=== PATIENT | female | born 1955 | race Caucasian/White ===

== ENCOUNTER → 2019-07-04 | Outpatient (CLI) | payer BC ==
--- NOTE | 2019-07-05 08:51 | US ---
EXAMINATION TYPE: US pelvis complete transvag DATE OF EXAM: 07/04/2019 COMPARISON: NONE CLINICAL HISTORY: R14.0 ABD DISTENTION. TECHNIQUE: Transvaginal (TV) and Transabdominal (TA) . Transabdominal sonographic images of the pel vis were acquired. Transvaginal sonographic images were medically necessary to better assess the fol lowing anatomy: ovaries Date of LMP: postmenopausal, no HRT EXAM MEASUREMENTS: Uterus: 7.2 x 2.3 x 4.6 cm Endometrial Stripe: 0.5 cm Right Ovary: 1.6 x 1.2 x 1.5 cm Left Ovary: 1.8 x 1.7 x 1.2 cm 1. Uterus: Anteverted wnl 2. Endometrium: wnl 3. Right Ovary: wnl 4. Left Ovary: wnl 5. Bilateral Adnexa: wnl 6. Posterior cul-de-sac: no free fluid IMPRESSION: Endometrial thickness is upper limits of normal but within normal limits for a premenopau cheri female.
== END | disposition home or self-care (01) ==
LOC: RADUSWWP 15:36
PROVIDERS: ATTEND Internal Medicine
DX: R14.0 Abdominal distension (gaseous) (principal)
CPT/HCPCS: 76830; 76856

== ENCOUNTER 2023-11-21 01:40 | Emergency (ER) | payer MEDICARE ==
--- NOTE | 2023-11-21 02:55 | ED ---
Arrhythmia/Palpitations HPI - General Chief Complaint: Arrhythmia/Palpitations Stated Complaint: Heart Palpitations Time Seen by Provider: 11/21/23 01:50 Source: patient Mode of arrival: ambulatory Limitations: no limitations - History of Present Illness Initial Comments: 68-year-old female with past medical history significant for hypertension presenting to the ED with a chief complaint of palpitations. Patient reports earlier tonight was just sitting on the couch watching TV when she felt a "fluttering" sensation in the middle of her chest lasting for 5 minutes. There was no associated chest pain, shortness of breath, dizziness, lightheadedness. After 5 minutes she reported symptoms spontaneously resolved. At this time patient has no current complaints. Currently denies chest pain, shortness of breath, palpitations, abdominal pain, changes in bowel or bladder habits, fever or chills. - Related Data Home Medications Medication Instructions Recorded Confirmed Aspirin 81 mg PO DAILY 10/28/14 10/28/14 Cetirizine HCl [Zyrtec] 5 mg PO DAILY 10/28/14 10/29/14 Cranberry Conc/C/Bacill Coag 1 each PO BID 10/28/14 10/29/14 [Cranberry Tablet] Dha-Eta 0.75 mg PO DAILY 10/28/14 10/29/14 Immune Biotect 1 tab PO DAILY 10/28/14 10/29/14 L.acidoph,Paracasei, B.lactis 1 each PO DAILY 10/28/14 10/29/14 [Probiotic] Multivitamins, Thera [Multivitamin] 1 tab PO DAILY 10/28/14 10/28/14 Olopatadine HCl [Pataday] 2.5 ml BOTH EYES DAILY 10/28/14 10/29/14 Similasan 1 drop BOTH EYES DAILY 10/28/14 10/29/14 Allergies Allergy/AdvReac Type Severity Reaction Status Date / Time No Known Allergies Allergy Verified 10/28/14 09:18 Review of Systems ROS Statement: Those systems with pertinent positive or pertinent negative responses have been documented in the HPI. ROS Other: All systems not noted in ROS Statement are negative. Past Medical History Past Medical History: Hypertension Additional Past Medical History / Comment(s): hx frequent UTI's, seasonal allergies, palpitations, hemorrhoids History of Any Multi-Drug Resistant Organisms: None Reported Past Surgical History: No Surgical Hx Reported Past Anesthesia/Blood Transfusion Reactions: No Reported Reaction Past Psychological History: No Psychological Hx Reported Smoking Status: Never smoker Past Alcohol Use History: Rare Past Drug Use History: None Reported - Past Family History Mother Family Medical History: No Reported History General Exam Limitations: no limitations General appearance: alert, in no apparent distress Eye exam: Present: normal appearance Neck exam: Present: normal inspection Respiratory exam: Present: normal lung sounds bilaterally Cardiovascular Exam: Present: regular rate, normal rhythm (No murmurs rubs or gallops.) GI/Abdominal exam: Present: soft, normal bowel sounds. Absent: distended, tenderness, guarding, rebound, rigid Neurological exam: Present: alert, oriented X3 Skin exam: Present: warm, dry Course Vital Signs 11/21/23 11/21/23 11/21/23 01:43 02:10 03:15 Temperature 97.6 F Pulse Rate 95 90 88 Respiratory 18 18 18 Rate Blood Pressure 194/88 168/91 179/97 O2 Sat by Pulse 98 98 96 Oximetry 11/21/23 04:24 Temperature Pulse Rate 82 Respiratory 16 Rate Blood Pressure 157/73 O2 Sat by Pulse 97 Oximetry Medical Decision Making - Medical Decision Making Was pt. sent in by a medical professional or institution (, PA, DIRECTOR EQUIPMENT, urgent care, hospital, or senior care...) When possible be specific @ -No Did you speak to anyone other than the patient for history (EMS, parent, family, police, friend...)? What history was obtained from this source @ -No Did you review nursing and triage notes (agree or disagree)? Why? @ -I reviewed and agree with nursing and triage notes Were old charts reviewed (outside hosp., previous admission, EMS record, old EKG, old radiological studies, urgent care reports/EKG's, senior care records)? Report findings @ -No old charts were reviewed Differential Diagnosis (chest pain, altered mental status, abdominal pain women, abdominal pain men, vaginal bleeding, weakness, fever, dyspnea, syncope, headache, dizziness, GI bleed, back pain, seizure, CVA, palpatations, mental health, musculoskeletal)? @ -Differential Palpitations Ventricular arrhythmias, atrial arrhythmias, myocardial infarction, anemia, thyrotoxicosis, electrolyte imbalance, hypokalemia, pulmonary embolism, pulmonary disease, drugs, alcohol, anxiety, stress.... This is not meant to be an all-inclusive list. EKG interpreted by me (3pts min.). @ -EKG interpreted me showing a sinus rhythm at [address] or T wave changes. CT 146, QRS 98, QT/QTc 373/421. X-rays interpreted by me (1pt min.). @ -Chest x-ray interpreted me which revealed no evidence of acute finding. CT interpreted by me (1pt min.). @ -None done U/S interpreted by me (1pt. min.). @ -None done What testing was considered but not performed or refused? (CT, X-rays, U/S, labs)? Why? @ -None What meds were considered but not given or refused? Why? @ -None Did you discuss the management of the patient with other professionals ( professionals i.e. , PA, DIRECTOR EQUIPMENT, lab, RT, psych nurse, social service worker, tailercpa, teacher, artillery officer, keycase assembler)? Give summary @ -No Was smoking cessation discussed for >3mins.? @ -No Was critical care preformed (if so, how long)? @ -No Were there social determinants of health that impacted care today? How? (Homelessness, low income, unemployed, alcoholism, drug addiction, transportation, low edu. Level, literacy, decrease access to med. care, nursing home, rehab)? @ -No Was there de-escalation of care discussed even if they declined (Discuss DNR or withdrawal of care, Hospice)? DNR status @ -No What co-morbidities impacted this encounter? (DM, HTN, Smoking, COPD, CAD, Cancer, CVA, ARF, Chemo, Hep., AIDS, mental health diagnosis, sleep apnea, morbid obesity)? @ -None Was patient admitted / discharged? Hospital course, mention meds given and route, prescriptions, significant lab abnormalities, going to OR and other pertinent info. @ -Discharge 68-year-old female presenting to the ED with episode where she felt her heart fluttering lasting for about 5 minutes with no associated symptoms. Laboratory studies and imaging studies reviewed. Labs and imaging are unremarkable. EKG showed a sinus rhythm without acute ST or T wave changes. Patient discharged home in stable condition with instructions to closely follow-up with her PCP. Discussed return precautions with patient who verbalized agreement. Undiagnosed new problem with uncertain prognosis? @ -No Drug Therapy requiring intensive monitoring for toxicity (Heparin, Nitro, Insulin, Cardizem)? @ -No Were any procedures done? @ -No Diagnosis/symptom? @ -Palpitations Acute, or Chronic, or Acute on Chronic? @ -Acute Uncomplicated (without systemic symptoms) or Complicated (systemic symptoms)? @ -Uncomplicated Side effects of treatment? @ -No Exacerbation, Progression, or Severe Exacerbation? @ -No Poses a threat to life or bodily function? How? (Chest pain, USA, PA, pneumonia, PE, COPD, DKA, ARF, appy, cholecystitis, CVA, Diverticulitis, Homicidal, Suicidal, threat to staff... and all critical care pts) @ -No - Lab Data Result diagrams: 11/21/23 02:05 11/21/23 02:05 Lab Results 11/21/23 11/21/23 11/21/23 Range/Units 02:05 02:05 02:05 WBC 11.0 H (3.8-10.6) k/uL RBC 4.48 (3.80-5.40) m/uL Hgb 14.2 (11.4-16.0) gm/dL Hct 42.5 (34.0-46.0) % MCV 94.9 (80.0-100.0) fL MCH 31.7 (25.0-35.0) pg MCHC 33.4 (31.0-37.0) g/dL RDW 12.9 (11.5-15.5) % Plt Count 254 (150-450) k/uL MPV 7.8 Neutrophils % 44 % Lymphocytes % 45 % Monocytes % 4 % Eosinophils % 4 % Basophils % 1 % Neutrophils # 4.9 (1.3-7.7) k/uL Lymphocytes # 4.9 H (1.0-4.8) k/uL Monocytes # 0.5 (0-1.0) k/uL Eosinophils # 0.4 (0-0.7) k/uL Basophils # 0.1 (0-0.2) k/uL PT 10.1 (10.0-12.5) sec INR 0.9 (<1.2) APTT 25.0 (22.0-30.0) sec Sodium 139 (137-145) mmol/L Potassium 3.8 (3.5-5.1) mmol/L Chloride 109 H (98-107) mmol/L Carbon Dioxide 21 L (22-30) mmol/L Anion Gap 9 mmol/L BUN 12 (7-17) mg/dL Creatinine 0.56 (0.52-1.04) mg/dL Est GFR (CKD-EPI)AfAm >90 (>60 ml/min/1.73 sqM) Est GFR (CKD-EPI)NonAf >90 (>60 ml/min/1.73 sqM) Glucose 98 (74-99) mg/dL Calcium 9.2 (8.4-10.2) mg/dL Magnesium 2.1 (1.6-2.3) mg/dL Total Bilirubin 0.4 (0.2-1.3) mg/dL AST 30 (14-36) U/L ALT 23 (4-34) U/L Alkaline Phosphatase 95 (38-126) U/L Troponin I (0.000-0.034) ng/mL Total Protein 7.1 (6.3-8.2) g/dL Albumin 4.3 (3.5-5.0) g/dL 11/21/23 Range/Units 02:05 WBC (3.8-10.6) k/uL RBC (3.80-5.40) m/uL Hgb (11.4-16.0) gm/dL Hct (34.0-46.0) % MCV (80.0-100.0) fL MCH (25.0-35.0) pg MCHC (31.0-37.0) g/dL RDW (11.5-15.5) % Plt Count (150-450) k/uL MPV Neutrophils % % Lymphocytes % % Monocytes % % Eosinophils % % Basophils % % Neutrophils # (1.3-7.7) k/uL Lymphocytes # (1.0-4.8) k/uL Monocytes # (0-1.0) k/uL Eosinophils # (0-0.7) k/uL Basophils # (0-0.2) k/uL PT (10.0-12.5) sec INR (<1.2) APTT (22.0-30.0) sec Sodium (137-145) mmol/L Potassium (3.5-5.1) mmol/L Chloride (98-107) mmol/L Carbon Dioxide (22-30) mmol/L Anion Gap mmol/L BUN (7-17) mg/dL Creatinine (0.52-1.04) mg/dL Est GFR (CKD-EPI)AfAm (>60 ml/min/1.73 sqM) Est GFR (CKD-EPI)NonAf (>60 ml/min/1.73 sqM) Glucose (74-99) mg/dL Calcium (8.4-10.2) mg/dL Magnesium (1.6-2.3) mg/dL Total Bilirubin (0.2-1.3) mg/dL AST (14-36) U/L ALT (4-34) U/L Alkaline Phosphatase (38-126) U/L Troponin I <0.012 (0.000-0.034) ng/mL Total Protein (6.3-8.2) g/dL Albumin (3.5-5.0) g/dL Disposition Clinical Impression: Palpitations Disposition: HOME SELF-CARE Condition: Good Instructions (If sedation given, give patient instructions): Heart Palpitations (ED) Additional Instructions: Please return to the Emergency Department if symptoms worsen or any other concerns. Please follow-up with your primary care provider. Is patient prescribed a controlled substance at d/c from ED?: No Referrals: Chloé Dalton MD [Primary Care Provider] - 1-2 days Time of Disposition: 04:35
[2023-11-21 03:36] LABS: Basophils # (A) 0.1 k/uL (0-0.2); Basophils % (A) 1 %; Eosinophils # (A) 0.4 k/uL (0-0.7); Eosinophils % (A) 4 %; HCT 42.5 % (34.0-46.0); HGB 14.2 gm/dL (11.4-16.0); Lymphocytes # (A) 4.9 k/uL (1.0-4.8); Lymphocytes % (A) 45 %; MCH 31.7 pg (25.0-35.0); MCHC 33.4 g/dL (31.0-37.0); MCV 94.9 fL (80.0-100.0); Mean Platelet Volume 7.8; Monocytes # (A) 0.5 k/uL (0-1.0); Monocytes % (A) 4 %; Neutrophils # (A) 4.9 k/uL (1.3-7.7); Neutrophils % (A) 44 %; Platelet Count 254 k/uL (150-450); RBC 4.48 m/uL (3.80-5.40); RDW 12.9 % (11.5-15.5)
[2023-11-21 03:49] LABS: ALT 23 U/L (4-34); AST 30 U/L (14-36); African American GFR (CKD) >90 (>60 ml/min/1.73 sqM); Albumin 4.3 g/dL (3.5-5.0); Alkaline Phosphatase 95 U/L (38-126); Anion Gap 9 mmol/L; Blood Urea Nitrogen 12 mg/dL (7-17); Calcium 9.2 mg/dL (8.4-10.2); Carbon Dioxide 21 mmol/L (22-30); Chloride 109 mmol/L (98-107); Glucose 98 mg/dL (74-99); INR 0.9 (<1.2); Magnesium 2.1 mg/dL (1.6-2.3); Non-African American GFR(CKD) >90 (>60 ml/min/1.73 sqM); Potassium 3.8 mmol/L (3.5-5.1); Prothrombin Time 10.1 sec (10.0-12.5); Sodium 139 mmol/L (137-145); Total Bilirubin 0.4 mg/dL (0.2-1.3); Total Protein 7.1 g/dL (6.3-8.2)
[2023-11-21 04:25] VITALS: RESP 16
--- NOTE | 2023-11-21 04:33 | XR ---
EXAM: XR Chest, 2 Views CLINICAL HISTORY: ITS.REASON XR Reason: Chest Pain TECHNIQUE: Frontal and lateral views of the chest. COMPARISON: No relevant prior studies available. FINDINGS: Lungs: Unremarkable. No consolidation. Pleural space: Unremarkable. No pneumothorax. Heart: Unremarkable. No cardiomegaly. Mediastinum: Unremarkable. Normal mediastinal contour. Bones/joints: Unremarkable. No acute fracture. IMPRESSION: No consolidation.
[2023-11-21 05:08] VITALS: BP 169/85; PULSE 80; TEMP 97.7
== END 2023-11-21 05:06 | disposition home or self-care (01) ==
LOC: EC 01:40
DX: R00.2 Palpitations (principal)
CPT/HCPCS: 36415; 71046; 80053; 83735; 84484; 85025; 85610; 85730; 93005; 99285

== ENCOUNTER → 2023-12-20 | Outpatient (CLI) | payer MEDICARE ==
[2023-12-20 15:30] VITALS: BP 138/94; PULSE 97; RESP 16; TEMP 98.1
--- NOTE | 2023-12-20 15:56 | P.SLEEP ---
History of Present Illness DATE: 12/20/2023 CONSULTATION/NEW PATIENT EVALUATION HISTORY OF PRESENT ILLNESS/SLEEP-WAKE EVALUATION: 68-year-old lady had been e valuated in the sleep center for possible obstructive sleep apnea hypopnea syndrome. SLEEP SCHEDULE: Usually sleep schedule from 1112 midnight until 68 AM. FALLING ASLEEP: No significant problems with falling asleep. DURING SLEEP: Patient snores, has witnessed episodes of stop breathing during the sleep and wakes up from sleep with dry mouth and palpitations no history of hypnogogical hallucinations, sleep paralysis, or cataplexy. DURING THE DAY/WAKE STATE: Patient has problems with memory, falling asleep during the day. [place] sleepiness scale is 9. Patient may take nap at 1 PM. PAST MEDICAL HISTORY: Hypertension, anxiety, hyperlipidemia. PAST SURGICAL HISTORY: Basal cell carcinoma have been removed. MEDICATIONS: Please see below. SOCIAL HISTORY: Please see below. FAMILY HISTORY: Asthma, cancer, sleep apnea, anemia. REVIEW OF SYSTEMS: Snoring, sleepiness during the day. No fevers. No double vision. No recent chest pain. No shortness of breath. No abdominal pain. No bleeding episodes. No blood in urine. No seizure episodes. PHYSICAL EXAMINATION: GENERAL: A pleasant patient without any distress. VITAL SIGNS: Please see below, weight 199.4 pounds, BMI 34.3. HEENT: PERRLA, EOMI. Evaluation of oropharynx showed tongue protrudes midline, low position of soft palate Mallampati 4. NECK: Supple. No JVD. Thyroid is not palpable. 14.5 inches in circumference. LUNGS: Clear to percussion and to auscultation. Good air exchange. No wheezing or rhonchi. HEART: S1, S2 regular. No murmurs, gallops or rubs. ABDOMEN: Soft and nontender. Bowel sounds are present. No organomegaly appreciated. EXTREMITIES: No clubbing or cyanosis. HYDROGRAPHIC SURVEYOR: Awake, alert, and oriented x3. Cranial nerves 2 to 7 intact. There is no fasciculation or atrophy noted. No focal deficits observed. ASSESSMENT: 1. Snoring, witnessed episodes of stop breathing during the sleep, extremely low position of soft palate Mallampati 4, episodes of sleepiness during the day. Obstructive sleep apnea hypopnea syndrome. 2. Obesity, BMI 34.3. 3. Hypertension. 4. Anxiety. 5 hyperlipidemia. 6 . Status post surgical treatment for basal cell carcinoma. PLAN: 1. Polysomnography for evaluation of patient's breathing during sleep. 2. Following plan after reading sleep study. 3. Preferable position during sleep on the side. 4. No driving if patient feels any sleepiness. Patient is aware of civil and criminal liability for unsafe driving. 5. Sleep hygiene with regular sleep time for at least 7.5-8 hours. 6. Watching and losing weight. Thank you very much for referring this patient for consultation. Sincerely, Jerry Norris MD, PhD, FAASM. Diplomat of [place] [employer], Sleep Medicine Board by [employer] Commercial Maintenance Technician of [facility] [place] cc: Chloé Dalton MD Past Medical History Past Medical History: Hypertension Additional Past Medical History / Comment(s): hx frequent UTI's, seasonal allergies, palpitations, hemorrhoids History of Any Multi-Drug Resistant Organisms: None Reported Past Surgical History: No Surgical Hx Reported Past Anesthesia/Blood Transfusion Reactions: No Reported Reaction Past Psychological History: Anxiety Smoking Status: Never smoker Past Alcohol Use History: Rare Past Drug Use History: None Reported - Past Family History Mother Family Medical History: No Reported History Medications and Allergies Home Medications Medication Instructions Recorded Confirmed Type Aspirin 81 mg PO DAILY 10/28/14 12/20/23 History Cranberry Conc/C/Bacill Coag 1 each PO BID 10/28/14 12/20/23 History [Cranberry Tablet] Multivitamins, Thera [Multivitamin] 1 tab PO DAILY 10/28/14 12/20/23 History Similasan 1 drop BOTH EYES DAILY 10/28/14 10/29/14 History Loratadine [Claritin] 12/20/23 History Magnesium 250 mg PO 12/20/23 12/20/23 History Rosuvastatin [Crestor] 10 mg PO 12/20/23 History buPROPion HCL [buPROPion HCL Xl] 12/20/23 History lisinopriL [Zestril] 10 mg PO DAILY 12/20/23 12/20/23 History Allergies Allergy/AdvReac Type Severity Reaction Status Date / Time No Known Allergies Allergy Verified 10/28/14 09:18 Physical Exam Vitals: Vital Signs Temp Pulse Resp BP Pulse Ox 12/20/23 15:30 98.1 F 97 16 138/94 97 Intake and Output 12/20/23 12/20/23 12/20/23 06:59 14:59 22:59 Other: Weight 90.265 kg Sleep Note - Sleep Data ESS Total: 9 - Sleep Note Sleep Note: Temperature: 98.1 F Pulse Rate: 97 Respiratory Rate: 16 Blood Pressure: 138/94 SpO2: 97 Height: 5 ft 4 in Weight: 90.265 kg BMI: Neck Circumference: 14.5
== END ==
LOC: 3 N SLEEP 14:56
PROVIDERS: ATTEND Internal Medicine
DX: G47.33 Obstructive sleep apnea (adult) (pediatric) (principal); E66.9 Obesity, unspecified; I10 Essential (primary) hypertension; F41.9 Anxiety disorder, unspecified; E78.5 Hyperlipidemia, unspecified; Z98.890 Other specified postprocedural states; Z85.828 Personal history of other malignant neoplasm of skin; Z68.34 Body mass index [BMI] 34.0-34.9, adult; Z79.899 Other long term (current) drug therapy; Z87.891 Personal history of nicotine dependence
CPT/HCPCS: 99211

== ENCOUNTER 2024-01-28 19:41 | Outpatient (CLI) | payer MEDICARE ==
--- NOTE | 2024-02-01 10:45 | P.PCN ---
Description of Procedure: POLYSOMNOGRAPHY REPORT PROCEDURE(S)/DATE(S): Polysomnography 01/28/2024 CLINICAL: Patient has been seen in the sleep center for evaluation of obstructive sleep apnea-hypopnea syndrome. Please see my consultation. Sleep study has been done for evaluation of patient breathing during the sleep. PROCEDURE: The standard montage for clinical polysomnography included the electroencephalogram, the electrooculogram, the mentalis surface electromyography and Lead II cardiography. The respiratory battery consisted of measurements of nasal/buccal air flow, pressure transducer measurements from nose, thoracic and/or abdominal effort and intercostal surface electromyography. Video monitoring has been done to check for any parasomnia events. Nocturnal oxyhemoglobin saturations were obtained by finger oximetry. Step-faulkner titration with positive airway pressure was utilized to control the respiratory events, if necessary. RESULTS: During the diagnostic sleep study sleep efficiency was extremely low only 44.5%. Latency to sleep onset was significantly prolonged to 127.0 min. Sleep architecture showed stage NI was increased to 14.0%, Delta sleep was absent 0%, REM sleep was 25.1%. Respiratory channel showed 1 obstructive apneas, 0 mixed apneas, 3 central apneas, 149 hypopneas with lowest oxygen level 59%. Total apnea hypopnea index was 53.7. Heart rate was in the range between 66 and 78, average 71 by computer calculation. EMG showed 1.4 periodic limb movements per hour with 0.4 micro-arousals per hour. IMPRESSIONS: 1. Severe obstructive sleep apnea hypopnea syndrome with extremely severe oxygen desaturation. 2. No significant periodic limb movements have been documented. 3. Long sleep latency and low sleep efficiency during the sleep test which may indicate insomnia versus first night adaptation response. Please see other impressions from consultation PLAN: 1. The patient will have PAP titration for correction of respiratory abnormalities during the sleep. 2. Losing weight program. 3. Sleep hygiene with regular time in bed for at least 7-1/2 hours. 4. No driving if feeling sleepiness. Thank you very much for allowing me to participate in the management of your patient. Sincerely, Jerry Norris MD, PhD, FAASM. Diplomat of [place] [employer] [employer], Sleep Medicine Board by [place] [employer] Commercial Finance Manager of [facility] [place] cc: Chloé Dalton MD
== END 2024-01-29 06:08 | disposition home or self-care (01) ==
LOC: 3 N SLEEP 19:41
PROVIDERS: ATTEND Internal Medicine
CPT/HCPCS: 95810

== ENCOUNTER 2024-02-07 19:38 | Outpatient (CLI) | payer MEDICARE ==
--- NOTE | 2024-02-08 12:03 | P.PCN ---
Description of Procedure: CLINICAL: Titration with positive air pressure has been done for correction of respiratory abnormalities during sleep. DESCRIPTION OF PROCEDURE: The standard montage for clinical polysomnography included the electroencephalogram, the electrocardiogram, the mentalis surface electromyography and Lead II cardiography. The respiratory battery consisted of measurements of nasal /buccal air flow, pressure transducer measurements from the nose, thoracic and /or abdominal effort and intercostal surface electromyography. Video monitoring has been done to check for any parasomnia events. Nocturnal oxyhemoglobin saturations were obtained by finger oximetry. Step-faulkner titration with positive airway pressure was utilized to control respiratory events. Raw data of sleep recording has been reviewed and is adequate. RESULTS: Sleep efficiency was extremely short 32.6%. Total sleep time 123.0 minutes Latency to sleep onset was prolonged to 55.5 minutes.]. Sleep architecture showed stage N1 was increased to 17.9%, Delta sleep was absent 0%, REM sleep was borderline 20.7%. Heart rate was minimum 67 BPM, maximum 78 BPM, average 71 BPM. EMG showed 0 periodic limb movements per hour with 0 micriarousals per hour. PAP titration have been done with CPAP up to the pressure 15 cm H2O. Patient had problems with CPAP, switched to BPAP. BPAP titrated up to 21/17 cm H2O. The best results were at the pressure 21/17 cm H2O. Apnea hypopnea index reduced to 4.9, but patient was at that pressure for short period of time. IMPRESSION: 1. Severe obstructive sleep apnea hypopnea syndrome improved on BiPAP treatment. 2. No significant periodic limb movements have been documented. 3. Very low sleep efficiency during the test. Please see other impressions from consultation. PLAN: 1. The patient will have treatment with positive air pressure equipment with the level of pressure maximal inspiratory pressure 21, minimal expiratory pressure 6 cm H2O and should use it every night for the whole night. 2. Watching and losing weight. 3. Sleep hygiene with regular time in bed for at least 8 hours. 4. No driving if feeling any sleepiness. 5. I will see the patient for follow up visit to explain the results of the test, recommendations, check compliance with treatment and make any necessary adjustment related to mask fitting, pressure and humidification. Thank you very much for allowing me to participate in the management of your patient. Sincerely, Jerry Norris MD, PhD, FAASM Diplomat of [employer] [employer] Sleep Medicine Board of [place] [employer] Sanitation Officer of [facility] [place] cc: Chloé Dalton MD
== END 2024-02-08 06:00 | disposition home or self-care (01) ==
LOC: 3 N SLEEP 19:38
PROVIDERS: ATTEND Internal Medicine
CPT/HCPCS: 95811

== ENCOUNTER → 2024-04-12 | Outpatient (CLI) | payer MEDICARE ==
--- NOTE | 2024-04-12 08:25 | MM ---
Reason for Exam: Screening (asymptomatic). Patient History: Menarche at age 11. First Full-Term at age 31. Late child-bearing (after 30). Postmenopausal. Patient has history of breast feeding. Risk Values: Millicent 5 year model risk: 2.4%. NCI Lifetime model risk: 7.3%. Prior Study Comparison: No prior studies available for comparison. Tissue Density: There are scattered areas of fibroglandular density. Findings: Analyzed By CAD. Pleomorphic cluster of microcalcifications upper outer right breast 13 cm from the nipple measuring 5.4 x 2.3 cm. These are likely malignant. Additional views however are recommended prior to recommended stereotactic core biopsy. No additional clusters of microcalcifications are present. There is a small irregular nodule identified at the approximate 1:00 position left breast which measures 5 mm in size 10 cm from the nipple. Additional views bilaterally recommended. Overall Assessment: Incomplete: need additional imaging evaluation, BI-RAD 0 Management: Diagnostic Mammogram of both breasts. . Patient should continue monthly self-breast exams. A clinical breast exam by your physician is recommended on an annual basis. This exam should not preclude additional follow-up of suspicious palpable abnormalities. Note on Millicent scores and lifetime risk: 1. A Millicent score greater than 3% is considered moderate risk. If this is the case, consider specialist referral to assess eligibility for a risk reducing agent. 2. If overall lifetime risk for the development of breast cancer is 20% or higher, the patient may qualify for future screening with alternating mammogram and breast MRI. [facility], , 04/12/2024 8:22 AM. Electronically signed and approved by: Olu Chavez M.D. Radiologis
== END | disposition home or self-care (01) ==
LOC: RADMAMWWP 07:03
PROVIDERS: ATTEND Family Medicine
DX: Z12.31 Encounter for screening mammogram for malignant neoplasm of breast (principal); R92.323 Mammographic fibroglandular density, bilateral breasts; Z78.0 Asymptomatic menopausal state
CPT/HCPCS: 77063; 77067

== ENCOUNTER → 2024-04-24 | Outpatient (CLI) | payer MEDICARE ==
--- NOTE | 2024-04-24 07:56 | MM ---
Reason for Exam: Additional evaluation requested from abnormal screening. Last screening mammogram was performed less than 1 month ago. Patient History: Menarche at age 11. First Full-Term at age 31. Late child-bearing (after 30). Postmenopausal. Patient has history of breast feeding. Risk Values: Millicent 5 year model risk: 2.4%. NCI Lifetime model risk: 7.3%. Prior Study Comparison: 04/12/2024 Bilateral MG 3D screening mammo w/cad, [facility]. Tissue Density: The breasts are heterogeneously dense, which may obscure small masses. Findings: Analyzed By CAD. A region of calcification at the 10:00 right breast spanning nearly 5.3 cm. Associated density for which ultrasound is recommended. On the left, there is persistence of a 5 mm nodule near the 12:00 position middle to posterior depth for which further ultrasound evaluation is recommended. Overall Assessment: Incomplete: need additional imaging evaluation, BI-RAD 0 Management: Diagnostic Breast Ultrasound of both breasts. [facility], , 04/24/2024 7:52 AM. Electronically signed and approved by: Abeba Clayton M.D. Radiologist
--- NOTE | 2024-04-24 08:45 | USB ---
Reason for Exam: Additional evaluation requested from abnormal screening. Patient History: Menarche at age 11. First Full-Term at age 31. Late child-bearing (after 30). Postmenopausal. Patient has history of breast feeding. Risk Values: Millicent 5 year model risk: 2.4%. NCI Lifetime model risk: 7.3%. Technique: Method: Targeted. Prior Study Comparison: 04/12/2024 Bilateral MG 3D screening mammo w/cad, [facility]. Findings: The whole breast of the right breast, the upper section of the breast of the left breast, the axilla of both breasts and the retroareolar of both breasts were scanned. Right: Complete breast ultrasound including scanning of 4 quadrants as well as the subareolar region and axilla. At the 10:00 position, 10 cm from the nipple, there is a poorly defined heterogeneous hypoechoic area measuring 1.2 x 1.7 x 1.4 cm. Some marginal vascularity is noted as well as posterior shadowing. This area is smaller than the region of 5.3 cm calcification on mammogram. There is a prominent but nonenlarged 2.3 x 0.9 x 1.1 cm lymph node in the right axilla. However, this shows uniform mild cortical thickening up to 2.7 mm. Tissue sampling recommended here as well. No other solid or cystic lesion. Left: Targeted ultrasound 12:00 left breast including scanning of the subareolar region and axilla. At the 12:00 position, 8 cm from the nipple, there is a suspicious vertically oriented isoechoic lesion measuring 3 x 4 x 4 mm with some posterior shadowing. Mammographic correlate. No axillary adenopathy. Overall Assessment: Highly suggestive of malignancy, BI-RAD 5 Management: Ultrasound Core Biopsy of both breasts. 2 sites on the right and one site on the left. Note that the region of calcifications on mammogram span a larger area in the visualized right breast lesion. Results were given to the patient verbally at the time of exam. [facility], , 04/24/2024 8:41 AM. Electronically signed and approved by: Abeba Clayton M.D. Radiologist
== END | disposition home or self-care (01) ==
LOC: RADMAMWWP 07:21
PROVIDERS: ATTEND Family Medicine
DX: R92.8 Other abnormal and inconclusive findings on diagnostic imaging of breast (principal); Z78.0 Asymptomatic menopausal state
CPT/HCPCS: 77066; 76642; G0279; 77062

== ENCOUNTER → 2024-04-25 | Day surgery (SDC) | payer MEDICARE ==
--- NOTE | 2024-05-07 08:39 | MM ---
Reason for Exam: Post Procedure Mammogram. Last screening mammogram was performed less than 1 month ago. Patient History: Menarche at age 11. First Full-Term at age 31. Late child-bearing (after 30). Postmenopausal. Patient has history of breast feeding. Risk Values: Millicent 5 year model risk: 2.4%. NCI Lifetime model risk: 7.3%. Prior Study Comparison: 04/12/2024 Bilateral MG 3D screening mammo w/cad, [facility]. 04/24/2024 Bilateral MG 3D work up w/cad [facility], [facility]. Tissue Density: Right: There are scattered areas of fibroglandular density. Tissue Density: Left: There are scattered areas of fibroglandular density. Pathology Description: Location: axilla. Marker Left Behind. Needle Type: Mammotome Cores: 4 Gauge: 13 Pathology Description: Location: 10 o'clock. Marker Left Behind. Needle Type: Mammotome Cores: 4 Gauge: 13 Pathology Description: Location: 12 o'clock. Marker Left Behind. Needle Type: Mammotome Cores: 5 Gauge: 13 The procedure of ultrasound guided core biopsy was explained to the patient. Benefits, alternatives, and risks were discussed. An informed consent was then obtained. The patient was placed in supine positioning for imaging and for the procedure. The overlying skin was prepped and draped in usual sterile fashion. Lidocaine buffered with bicarbonate was used as anesthetic into the skin and subcutaneous tissue up to area of concern in each breast. The right axillary lymph node was further anesthetized with lidocaine/epinephrine mixture. A.) LEFT BREAST TINY BUT SUSPICIOUS 12:00 LESION. Under ultrasound guidance, a 13-gauge vacuum-assisted mammotome Elite biopsy gun device was used to obtain 5 core samples. Following this, a HydroMark butterfly clip was left in lesion. B.) RIGHT BREAST 10:00 LESION, ASSOCIATED WITH CALCIFICATIONS ON MAMMOGRAM. Under ultrasound guidance, a 13-gauge vacuum-assisted mammotome Elite biopsy gun device was used to obtain 4 core samples. Following this, a wing clip was left in lesion. C.) EQUIVOCAL RIGHT AXILLARY LYMPH NODE, UNIFORMLY THICKENED CORTEX, POSSIBLY REACTIVE. Under ultrasound guidance, a 13-gauge vacuum-assisted mammotome Elite biopsy gun device was used to obtain 4 core samples. Following this, a HydroMark coil clip was left in lesion. The patient tolerated the procedure well without any immediate complication. The patient was kept in the radiology department for short stay after the procedure and then discharged home in stable condition. Postprocedure mammogram: The patient was transferred to mammography for physician ordered post procedure mammogram for clip placement verification. Post procedure mammogram demonstrates the butterfly and wing clips with appropriate placement. The right axillary coil clip is beyond the field of view. IMPRESSION: Successful, uncomplicated ultrasound guided core biopsy of: 1. BI-RADS 5, 10:00 right breast mass. Note the associated area of calcifications on mammogram. 2. Equivocal, possibly reactive right axillary lymph node. 3. Suspicious but small 12:00 left breast mass. Full pathology results to follow. [facility], , 04/25/2024 5:48 PM. Pathology Results: Result: Malignant, Invasive ductal carcinoma. Pathology and radiology were reviewed. Findings are concordant. A. LEFT BREAST, 12:00, NEEDLE CORE BIOPSY: Invasive moderately differentiated ductal carcinoma (Grade 2). See Surgical Pathology Cancer Case Summary. B. RIGHT BREAST, 10:00, NEEDLE CORE BIOPSY: Invasive moderately differentiated ductal carcinoma (Grade 2) and intermediate grade DCIS. See Surgical Pathology Cancer Case Summary. C. RIGHT AXILLA LYMPH NODE, NEEDLE CORE BIOPSY: Lymph node negative for metastasis. CK7 immunostain performed on block C1 is confirmatory (control appropriate). Overall Assessment: Known biopsy proven malignancy, BI-RAD 6 Assessment: MG diagnostic mammo RT wo CAD - Right: Post procedure mammogram for marker placement. MG diagnostic mammo LT wo CAD. - Left: Post procedure mammogram for marker placement. Management: Surgical Consultation of both breasts. Electronically signed and approved by: Abeba Clayton M.D. Radiologist
== END ==
LOC: RADUSWWP 12:43
PROVIDERS: ATTEND Surgery
DX: C50.812 Malignant neoplasm of overlapping sites of left female breast (principal); C50.411 Malignant neoplasm of upper-outer quadrant of right female breast; Z78.0 Asymptomatic menopausal state
CPT/HCPCS: 88305; 88342; 88341; 77065 ×2; 38505; 19083; 19084; A4648

== ENCOUNTER → 2024-05-01 | Outpatient (CLI) | payer MEDICARE ==
[2024-05-01 16:09] VITALS: BP 170/90; PULSE 100; RESP 16; TEMP 97.5
--- NOTE | 2024-05-01 17:51 | P.PROGSL ---
Subjective DATE: 05/01/2024 FOLLOW UP VISIT. Patient with obstructive sleep apnea hypopnea syndrome return to sleep center for follow-up visit. Recently patient had sleep study which documented obstructive sleep apnea hypopnea syndrome. Patient was initiated on PAP therapy and today is first visit after treatment was started. I explained to the patient results of sleep studies, patient has severe sleep apnea with apnea- hypopnea index 53.7. Patient was able to use PAP equipment every night for the whole night. The patient does not have significant problems with the mask, PAP pressure and humidification. [place] sleepiness scale is 6, which is normal. I checked information from PAP unit. BPAP unit pressure maximal inspiratory pressure 21, minimal expiratory pressure 6, average pressure 19.4/15.5 cm H2O. Usage is 100% and 90% for more then 4 hours, average 9 hours per night. Leak is 25 l/m, which is in acceptable range. Apnea Hypopnea Index is 6.8, which is minimally increased, significant improvement from original apnea hypopnea index 53.7. MEDICATIONS: Have been reviewed, please see below During physical exam: GENERAL: A pleasant patient without any distress. VITAL SIGNS: Please see below, weight 210 pounds. HEENT: PERRLA, EOMI.low position of soft palate, Mallapati 4 . NECK: Supple. No JVD. LUNGS: Clear to percussion and to auscultation. Good air exchange. No wheezing or rhonchi. HEART: S1, S2 regular. ABDOMEN: Soft and nontender.[] EXTREMITIES: No clubbing or cyanosis. [employer]: Awake, alert, and oriented x3. No focal deficit. Impressions: 1. Severe obstructive sleep apnea-hypopnea syndrome apnea hypopnea index 53.7. Patient demonstrated great compliance with treatment, benefiting from treatment. 2. Obesity. 3. Hypertension. 4. Anxiety. 5. Hyperlipidemia. 6. Status post surgical treatment for basal cell carcinoma. Plan: 1. Continue using PAP equipment every night for the whole night. 2. To change air filter at least 1-2 times per month. 3. PAP unit should stay lower then position of the head. 4. Advised patient to remove all remaining water from humidifier canister daily and make it dry after each usage. Refill canister with fresh distilled water before each usage. 5. Sleep hygiene with regular time in bed for at least 8 hours. 6. Precautions related to driving. No driving if feel any sleepiness. 7. I will maintain prescription for PAP supplies including mask, tube, filters. 8. Follow up visit in 8 months or earlier if patient has any problems. 9. Watching and losing weight. Thank you very much for allowing me to participate in the management of your patient. Jerry Norris MD, PhD, FAASM. Diplomat of [place] [employer], Sleep Medicine Board by [place] [employer] [facility] [place] Objective - Vital Signs Vital Signs: Vital Signs Temp 97.5 F L 05/01/24 16:07 Pulse 100 05/01/24 16:07 Resp 16 05/01/24 16:07 BP 170/90 05/01/24 16:07 Pulse Ox 98 05/01/24 16:07 FiO2 Intake & Output 04/30/24 05/01/24 05/01/24 18:59 06:59 18:59 Weight 95.254 kg Home Medications: Home Medications Medication Instructions Recorded Confirmed Type Cranberry Conc/C/Bacill Coag 1 each PO BID 10/28/14 04/24/24 History [Cranberry Tablet] Multivitamins, Thera [Multivitamin] 1 tab PO DAILY 10/28/14 04/24/24 History Magnesium 250 mg PO DAILY 12/20/23 04/24/24 History buPROPion HCL [buPROPion HCL XL] 1 each PO DAILY 12/20/23 04/24/24 History lisinopriL [Zestril] 10 mg PO DAILY 12/20/23 04/24/24 History Biotin 5 mg PO DAILY 04/24/24 04/24/24 History
== END ==
LOC: 3 N SLEEP 15:28
PROVIDERS: ATTEND Internal Medicine
DX: G47.33 Obstructive sleep apnea (adult) (pediatric) (principal); E66.9 Obesity, unspecified; I10 Essential (primary) hypertension; F41.9 Anxiety disorder, unspecified; E78.5 Hyperlipidemia, unspecified; Z98.890 Other specified postprocedural states; Z99.89 Dependence on other enabling machines and devices; Z87.891 Personal history of nicotine dependence
CPT/HCPCS: 99212

== ENCOUNTER → 2024-05-02 | Outpatient (CLI) | payer MEDICARE ==
[2024-05-02 15:15] VITALS: BP 164/90; PULSE 101; RESP 17; TEMP 97.9
--- NOTE | 2024-05-02 15:22 | P.GSCN ---
History of Present Illness Consult date: 05/02/24 Reason for Consult: bilateral breast cancer Requesting physician: Chloé Dalton History of present illness: Philly is a 68-year-old female seen in consultation for Dr. Olivia alexandre regarding biopsy-proven bilateral breast cancer. She underwent a bilateral mammogram on 2223 which led to diagnostic mammograms on 04-24-2024. This revealed a region of calcification at the 10:00 right breast spanning nearly 5.3 cm. An associated density was identified. On the left there was a persistent 5 mm nodule near the 12 o'clock position for which ultrasound was recommended. She underwent bilateral breast ultrasound in 04-24-2024. In the right breast at the 10 o'clock position there was a 1.2 x 1.7 cm density. Additionally there was a prominent lymph node in the right axilla. It showed uniform cortical thickening up to 2.7 mm in tissue sampling was recommended of both of these lesions. In the left breast at the 12 o'clock position there was a 3 x 4 mm lesion for which tissue biopsy was recommended. The patient underwent ultrasound-guided core biopsy in 04-25-2024. 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 The tumors were ER positive CA positive and HER2 negative. This was a routine mammogram she did not feel anything in her breast. Her last mammogram was many years ago. Complaining of any nipple discharge or skin c hanges. About 15 years ago a breast biopsy benign. She had a very bad experience with a physician many years ago and therefore was reluctant to seek medical care. Caffeine: 1 cup/day nicotine: stopped 10 years ago; 1 1/2 PPD chocolate: weekly BCP: about 2 years Family History: father: skin cancer mother: ? Hormonal History: menarche: 11 , age at first : 22, breast fed: Yes menopause: 47 hormones: bioidentical for a short time 1 year or less Surgical history: biopsy of the breast 15 years ago ? side Medical History: HTN Social History: nicotine: as above alcohol: none drugs: none Review of Systems - Constitutional Denies fever, Denies weight loss - EENT Eyes: denies blurred vision Ears: bilateral: decreased hearing, deny: tinnitus Ears, nose, mouth and throat: Denies dysphagia - Breasts bilateral: as per HPI - Cardiovascular Denies chest pain, Denies shortness of breath - Respiratory Denies cough, Denies 7 - Gastrointestinal Reports as per HPI - Genitourinary Genitourinary: Denies dysuria, Denies hematuria Menstruation: Reports postmenopausal - Musculoskeletal Reports as per HPI - Integumentary Denies rash, Denies unusual bruising - Neurological Denies headaches, Denies syncope - Psychiatric Reports as per HPI - Endocrine Reports as per HPI, Reports weight change - Hematologic/Lymphatic Denies easy bleeding, Denies easy bruising - Allergic/Immunologic Reports as per HPI Past Medical History Past Medical History: Hypertension Additional Past Medical History / Comment(s): hx frequent UTI's, seasonal allergies, palpitations, hemorrhoids History of Any Multi-Drug Resistant Organisms: None Reported Past Surgical History: No Surgical Hx Reported Past Anesthesia/Blood Transfusion Reactions: No Reported Reaction Past Psychological History: Anxiety Smoking Status: Former smoker Past Alcohol Use History: Rare Additional Past Alcohol Use History / Comment(s): quit smoking 2013, smoked for 5 years Past Drug Use History: None Reported - Past Family History Mother Family Medical History: No Reported History Medications and Allergies Home Medications Medication Instructions Recorded Confirmed Type Cranberry Conc/C/Bacill Coag 1 each PO BID 10/28/14 04/24/24 History [Cranberry Tablet] Multivitamins, Thera [Multivitamin] 1 tab PO DAILY 10/28/14 04/24/24 History Magnesium 250 mg PO DAILY 12/20/23 04/24/24 History buPROPion HCL [buPROPion HCL XL] 1 each PO DAILY 12/20/23 04/24/24 History lisinopriL [Zestril] 10 mg PO DAILY 12/20/23 04/24/24 History Biotin 5 mg PO DAILY 04/24/24 04/24/24 History Allergies Allergy/AdvReac Type Severity Reaction Status Date / Time No Known Allergies Allergy Verified 04/24/24 14:05 Surgical - Exam - General moderate distress - Eyes normal ocular movement - ENT no hearing loss - Neck trachea midline - Respiratory normal respiratory effort, clear to auscultation - Cardiovascular Rhythm: regular Heart Sounds: normal: S1, S2 - Abdomen Abdomen: soft, non tender, no guarding, no rigid, no rebound - Integumentary normal turgor - Neurologic no disoriented, no combative - Musculoskeletal normal gait - Psychiatric oriented to time, oriented to person, oriented to place, speech is normal, memory intact Breast Exam: BRA: 46DD Inspection: Right breast is larger than left breast, bilateral grade 3 ptosis Palpation: Right breast Multi positional exam increased fullness upper outer quadrant area approximately 5 cm in size Right axilla: No adenopathy of concern Left breast: Multi positional exam no dominant masses or nodules of concern Left axilla: No adenopathy of concern There are biopsy sites bilaterally which do not appear infected and no hematoma Results Mammogram and ultrasound personally reviewed and discussed with Dr. Sequeira from radiology. Pathology bilateral breast and right axilla reviewed Invasive ductal carcinoma ER/CA positive HER2 negative grade 2 Assessment and Plan Assessment: Impression: Bilateral ductal carcinoma Right breast T2 N0 M0 ER/CA positive HER2 negative G2 Left breast T1 N0 M0 ER/CA positive HER2 negative G2 Hypertension Plan: Presentation of case at tumor board Discussed treatment options with patient and her CC: Dr. Olivia San
== END ==
LOC: WWCWWP 14:38
PROVIDERS: ATTEND Surgery
DX: C50.911 Malignant neoplasm of unspecified site of right female breast (principal); C50.912 Malignant neoplasm of unspecified site of left female breast; I10 Essential (primary) hypertension; R92.1 Mammographic calcification found on diagnostic imaging of breast; Z17.0 Estrogen receptor positive status [ER+]; Z17.21 Progesterone receptor positive status; Z79.899 Other long term (current) drug therapy; Z87.891 Personal history of nicotine dependence

== ENCOUNTER → 2024-05-23 | Outpatient (CLI) | payer MEDICARE ==
--- NOTE | 2024-05-23 18:20 | PE ---
EXAMINATION TYPE: PET CT fusion skull to thigh DATE OF EXAM: 05/23/2024 CLINICAL INDICATION:Female, 68 years old with history of C50.111 BREAST CANCER; TECHNIQUE: Following the intravenous administration of 11.63 mCi of F-18 FDG, whole body images are performed from the skull base to the midthigh. Images are reviewed on the computer in the coronal, axial, and sagittal planes. Reconstructed rotating images are created on independent workstation and reviewed on the computer. A non-contrast CT is performed in conjunction with the PET scan. Glucose level 92 mg/dL CT DLP: 863.48 mGycm, Automated exposure control for dose reduction was used. COMPARISON: CT None, PET/CT None, MRI: None FINDINGS: Mediastinal SUV mean is 2.2. Hepatic parenchyma SUV mean is 2.8. SKULL BASE AND NECK: No suspicious radiotracer activity. CHEST, MEDIASTINUM, AND HILAR REGION: FDG avid right lateral breast mass with associated biopsy clip measuring grossly 2.4 cm with a maximu m SUV of 5.0. Mildly prominent 0.7 cm short axis right axillary lymph node with mild FDG uptake with a maximum SUV of 3.0. No FDG avid mass within the left breast identified. ABDOMEN AND PELVIS: No suspicious radiotracer activity. MUSCULOSKELETAL STRUCTURES: No suspicious radiotracer activity. OTHER CT: Atherosclerotic calcification of the aorta and its branches. Left hilar calcified lymph nod es. Cholelithiasis. Punctate calcified granulomas within the spleen. Nonobstructive bilateral renal c alculi. Right renal cyst measuring up to 2.6 cm. IMPRESSION: 1. FDG avid right breast mass consistent with reported malignancy. 2. Prominent right axillary lymph node with mild FDG activity which is concerning for possible metas tasis. Consider ultrasound-guided tissue sampling. 3. No distinct FDG avid left breast mass identified. May be too small for sensitivity of PET/CT. 4. No other suspicious FDG uptake identified. [facility], , 05/23/2024 6:18 PM
== END | disposition home or self-care (01) ==
LOC: RADPETMAIN 14:25
PROVIDERS: ATTEND Internal Medicine
DX: C50.111 Malignant neoplasm of central portion of right female breast (principal); N63.10 Unspecified lump in the right breast, unspecified quadrant
CPT/HCPCS: 78815; A9552

== ENCOUNTER → 2024-05-24 | Outpatient (CLI) | payer MEDICARE ==
[2024-05-24 14:39] VITALS: BP 152/84; PULSE 72; RESP 17; TEMP 97.9
--- NOTE | 2024-05-24 15:09 | P.PN ---
Subjective Progress Note Date: 05/24/24 Principal diagnosis: right breast [id number]+Her2-G2 stage IB left breast [id number]+Her2-G2 Stage IA bilateral lumpectomy and SNB, we discussed possible bam-adjuvant therapy and are awaiting oncotype and appointment with medical oncology. Possible metastatic work-up. right breast [id number]+Her2-G2 stage IB left breast [id number]+Her2-G2 Stage IA Genetic testing pending presenting at tumor board with evaluation of right axilla History of Present Illness Consult date: 05-24-24 Reason for Consult: bilateral breast cancer Requesting physician: Chloé Dalton History of present illness: Philly is a 68-year-old female seen in consultation for Dr. Medel regarding biopsy-proven bilateral breast cancer. She underwent a bilateral mammogram on 2223 which led to diagnostic mammograms on 04-24-2024. This revealed a region of calcification at the 10:00 right breast spanning nearly 5.3 cm. An associated density was identified. On the left there was a persistent 5 mm nodule near the 12 o'clock position for which ultrasound was recommended. She underwent bilateral breast ultrasound in 04-24-2024. In the right breast at the 10 o'clock position there was a 1.2 x 1.7 cm density. Additionally there was a prominent lymph node in the right axilla. It showed uniform cortical thickening up to 2.7 mm in tissue sampling was recommended of both of these lesions. In the left breast at the 12 o'clock position there was a 3 x 4 mm lesion for which tissue biopsy was recommended. The patient underwent ultrasound-guided core biopsy in 04-25-2024. 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 The tumors were ER positive MT positive and HER2 negative. This was a routine mammogram she did not feel anything in her breast. Her last mammogram was many years ago. She was not complaining of any nipple discharge or skin changes. About 15 years ago a breast biopsy benign. She had a very bad experience with a physician many years ago and therefore was reluctant to seek medical care. oncotype: two specimens one 19, and one 10 PET scan no mets, ? disease right axillary node; already had a biopsy of right node and it was (-) review note medical oncology 05-09-24 review note radiation oncology: 05-20-24 awaiting genetic testing to present at tumor board on May 28 Caffeine: 1 cup/day nicotine: stopped 10 years ago; 1 05/23 PPD chocolate: weekly BCP: about 2 years Family History: father: skin cancer mother: ? Hormonal History: menarche: 11 , age at first : 22, breast fed: Yes menopause: 47 hormones: bioidentical for a short time 1 year or less Surgical history: biopsy of the breast 15 years ago ? side Medical History: HTN Social History: nicotine: as above alcohol: none drugs: none Review of Systems - Constitutional Denies fever, Denies weight loss - EENT Eyes: denies blurred vision Ears: bilateral: decreased hearing, deny: tinnitus Ears, nose, mouth and throat: Denies dysphagia - Breasts bilateral: as per HPI - Cardiovascular Denies chest pain, Denies shortness of breath - Respiratory Denies cough - Gastrointestinal Reports as per HPI - Genitourinary Genitourinary: Denies dysuria, Denies hematuria Menstruation: Reports postmenopausal - Musculoskeletal Reports as per HPI - Integumentary Denies rash, Denies unusual bruising - Neurological Denies headaches, Denies syncope - Psychiatric Reports as per HPI - Endocrine Reports as per HPI, Reports weight change - Hematologic/Lymphatic Denies easy bleeding, Denies easy bruising - Allergic/Immunologic Reports as per HPI Past Medical History Past Medical History: Hypertension Additional Past Medical History / Comment(s): hx frequent UTI's, seasonal allergies, palpitations, hemorrhoids History of Any Multi-Drug Resistant Organisms: None Reported Past Surgical History: No Surgical Hx Reported Past Anesthesia/Blood Transfusion Reactions: No Reported Reaction Past Psychological History: Anxiety Smoking Status: Former smoker Past Alcohol Use History: Rare Additional Past Alcohol Use History / Comment(s): quit smoking 2013, smoked for 5 years Past Drug Use History: None Reported - Past Family History Mother Family Medical History: No Reported History Medications and Allergies Home Medications Medication Instructions Recorded Confirmed Type Cranberry Conc/C/Bacill Coag 1 each PO BID 10/28/14 04/24/24 History [Cranberry Tablet] Multivitamins, Thera [Multivitamin] 1 tab PO DAILY 10/28/14 04/24/24 History Magnesium 250 mg PO DAILY 12/20/23 04/24/24 History buPROPion HCL [buPROPion HCL XL] 1 each PO DAILY 12/20/23 04/24/24 History lisinopriL [Zestril] 10 mg PO DAILY 12/20/23 04/24/24 History Biotin 5 mg PO DAILY 04/24/24 04/24/24 History Allergies Allergy/AdvReac Type Severity Reaction Status Date / Time No Known Allergies Allergy Verified 04/24/24 14:05 Objective - Vital Signs Vital signs: Vital Signs Temp 97.9 F 05/24/24 14:37 Pulse 72 05/24/24 14:37 Resp 17 05/24/24 14:37 BP 152/84 05/24/24 14:37 Pulse Ox 100 05/24/24 14:37 FiO2 Intake & Output 05/23/24 05/24/24 05/24/24 18:59 06:59 18:59 Weight 95.254 kg - Constitutional General appearance: Present: cooperative - EENT Eyes: Present: EOMI ENT: Present: hearing grossly normal - Neck Neck: Present: normal ROM - Respiratory Respiratory: bilateral: CTA - Cardiovascular Rhythm: regular Heart sounds: normal: S1, S2 - Integumentary Integumentary: Present: normal turgor - Musculoskeletal Musculoskeletal: Present: gait normal - Psychiatric Psychiatric: Present: A&O x's 3, appropriate affect, intact judgment & insight - Additional findings Additional findings: Breast Exam: BRA: 46DD Inspection: Right breast is larger than left breast, bilateral grade 3 ptosis Palpation: Right breast Multi positional exam increased fullness upper outer quadrant area approximately 5 cm in size Right axilla: No adenopathy of concern Left breast: Multi positional exam no dominant masses or nodules of concern Left axilla: No adenopathy of concern There are biopsy sites bilaterally which do not appear infected and no hematoma Assessment and Plan Assessment: Impression: Bilateral ductal carcinoma Right breast T2 N0 M0 ER/MT positive HER2 negative G2 Left breast T1 N0 M0 ER/MT positive HER2 negative G2 Hypertension Plan: Presentation of case at tumor board May 28 Discussed treatment options with patient and her bilateral needle localization lumpectomy no mastopexy incision, bilateral sentinel node injection, bilateral sentinel node biopsy, possible bilateral axillary node dissection, possible bilateral oncoplastic tissue transfer Patient will assessment: Arm abduction past without difficulty Preoperative education given to the patient At this time we are awaiting presentation of case at tumor board in May 28 we will further discuss the right axillary node which showed on the PET scan however we are reluctant to do any other biopsies prior to surgery Genetic testing pending the patient and her are going to discuss if they would like to do something other than the bilateral lumpectomy depending on the genetic testing results CC: Dr. Olivia San
== END ==
LOC: WWCWWP 14:13
PROVIDERS: ATTEND Surgery
DX: C50.912 Malignant neoplasm of unspecified site of left female breast (principal); C50.911 Malignant neoplasm of unspecified site of right female breast; I10 Essential (primary) hypertension; Z17.0 Estrogen receptor positive status [ER+]; Z17.21 Progesterone receptor positive status; Z87.891 Personal history of nicotine dependence

== ENCOUNTER 2024-06-04 07:22 | Day surgery (SDC) | payer MEDICARE ==
[2024-06-04] MEDS ORDERED: LIDOCAINE 1% (10MG/ML) FOR IV START INTRADERMA PRN (07:34)
[2024-06-04] MEDS ORDERED: fentaNYL (PF) 50 MCG/ML 2 ML AMP IVP PRN (07:34)
[2024-06-04] MEDS ORDERED: LACTATED RINGERS 1,000 ML IV SCH (07:34)
[2024-06-04] MEDS ORDERED: HYDROmorphone 0.5 MG/0.5 ML SYRINGE IVP PRN (07:34)
[2024-06-04] MEDS ORDERED: MIDAZOLAM 2 MG/2 ML VIAL IV PRN (07:34)
[2024-06-04] MEDS: ACETAMINOPHEN TAB 500 MG TAB PO PRN (08:13)
[2024-06-04] MEDS: ONDANSETRON 4 MG/2 ML VIAL IVP ONE (08:13)
[2024-06-04] MEDS: DEXAMETHASONE SOD PHOSPHATE 4 MG/ML 1 ML VIAL IV ONE (08:13)
[2024-06-04] MEDS: ALPRAZolam 0.25 MG TAB PO STA (08:14)
[2024-06-04] MEDS: SODIUM CHLORIDE 0.9% 1,000 ML IV ONE (08:18)
[2024-06-04 08:42] LABS: African American GFR (CKD) >90 (>60 ml/min/1.73 sqM); Anion Gap 7 mmol/L; Blood Urea Nitrogen 17 mg/dL (7-17); Calcium 9.3 mg/dL (8.4-10.2); Carbon Dioxide 28 mmol/L (22-30); Chloride 108 mmol/L (98-107); Glucose 101 mg/dL (74-99); Non-African American GFR(CKD) 82 (>60 ml/min/1.73 sqM); Potassium 3.9 mmol/L (3.5-5.1); Sodium 143 mmol/L (137-145)
[2024-06-04] MEDS: SODIUM BICARB 8.4% 50 ML VIAL (1 MEQ/ML) MISCELLANE ONE ×2 (08:58→09:28)
[2024-06-04] MEDS: LIDOCAINE 1% INJ 10MG/ML (20 ML MDV) SQ ONE ×2 (08:58→09:28)
[2024-06-04] MEDS: HEPARIN SODIUM,PORCINE 5,000 UNIT/ML 1 ML VIAL SQ PRN (10:34)
[2024-06-04] MEDS ORDERED: MIDAZOLAM 2 MG/2 ML VIAL ONE (10:37)
[2024-06-04] MEDS ORDERED: PHENYLEPHRINE 10 MG/ML VIAL ONE (10:37)
[2024-06-04] MEDS ORDERED: LIDOCAINE 1% INJ 10MG/ML (20 ML MDV) ONE (10:37)
[2024-06-04] MEDS ORDERED: LIDOCAINE 4% LTA KIT (4 ML) TOPICAL ONE (10:37)
[2024-06-04] MEDS ORDERED: SUCCINYLCHOLINE CHLORIDE 200 MG/10 ML VIAL IV ONE (10:37)
[2024-06-04] MEDS ORDERED: PROPOFOL 10 MG/ML 20 ML VIAL IV ONE (10:37)
[2024-06-04] MEDS ORDERED: fentaNYL (PF) 50 MCG/ML 2 ML AMP ONE (10:37)
--- NOTE | 2024-06-04 11:03 | NM ---
EXAMINATION TYPE: NM sentinel node injection DATE OF EXAM: 06/04/2024 COMPARISON: NONE CLINICAL INDICATION: Female, 68 years old with history of Breast cancer D05.11 / C50.912; TECHNIQUE AND FINDINGS: The procedure of sentinel lymph node injection was explained to the patient. The benefits, alternatives, and risks were discussed. An informed consent was then obtained. Overlying skin is cleaned with sterile alcohol. Following this, 471 uCi Tc99m Tilmanocept was inject ed in the upper outer aspect of the right nipple intradermally. Overlying skin is cleaned with sterile alcohol. Following this, 471 uCi Tc99m Tilmanocept was inject ed in the upper outer aspect of the left nipple intradermally. The patient tolerated the procedure well without any immediate complication. The patient was kept in the radiology department for short stay after the procedure and then taken to surgery for surgical p rocedure what is presumed intraoperative gamma probe will be used for sentinel lymph node detection. IMPRESSION: Bilateral breast radiotracer injection for sentinel node localization as above. [facility], , 06/04/2024 11:01 AM
[2024-06-04] MEDS: METHYLENE BLUE 50 MG/10 ML AMPUL INJ ONE (11:15)
[2024-06-04] MEDS: LACTATED RINGERS 1,000 ML IV ONE (13:26)
--- NOTE | 2024-06-04 14:50 | P.BCAON ---
Date of Procedure: 06/04/24 Preoperative Diagnosis: Bilateral breast cancer Postoperative Diagnosis: same Procedure(s) Performed: Bilateral needle localization lumpectomy, bilateral sentinel node biopsy, left breast axillary mapping, oncoplastic tissue transfer 56 cm right, intraope rative ultrasound to attempt to find lesion in the left breast Anesthesia: ARCADIO Surgeon: Noy Johnson Estimated Blood Loss (ml): 20 IV fluids (ml): 900 Pathology: other (Breast tissue, bilateral axillary tissue) Condition: stable Disposition: same day Indications for Procedure: Bilateral biopsy-proven invasive ductal carcinoma Operative Findings: Very fibrofatty breast tissue Description of Procedure: The patient was seen first in the radiology department. Bracketing of the area in the right breast was performed and needle localization of the area of concern in the left breast was performed the left breast needle localization was done via ultrasound guidance. The patient also had injection of radiotracer in both periareolar regions. The patient was then brought to the operative suite. Following induction of anesthesia the neoprobe was used to interrogate the axilla's. A small amount of tracer traveled to the left axilla and therefore lymphatic mapping was performed. 10 cc of half percent methylene blue was injected into the left periareolar area. The neoprobe did identify radiotracer in the right axilla. Following this the patient was prepped and draped both breast and axilla bilaterally. The left side was approached initially. An incision was made in the left axilla. A blue radioactive lymph node was identified. The 10-second count on the left sentinel node was 1043. The background count was 14. No other palpable or blue nodes were identified. Following this the wound was well irrigated. The deep tissues were closed using 3-0 Vicryl suture. The skin was closed using 4-0 Monocryl. The area of the breast was approached. An incision was made and carried down to the shaft of the needle. The surrounding tissue was excised. Wide excision was performed around the tip of the needle which was the area which appeared that the cancer should be present. The specimen was painted for orientation. Radiograph of the specimen revealed a density but not the clip of concern. Therefore pathology was asked to look at the specimen who did not see a specific lesion. Radiology was asked to come to the room for intraoperative ultrasound was performed to look for the area of concern. On the initial attempt by radiology intraoperatively there was an area which was suspicious and this was removed. However, radiograph of the specimen likewise did not reveal the clip of concern. Careful evaluation was performed and a second time intraoperative ultrasound was performed. The lesion of concern could be identified at this time. Therefore it was determined that we should stop the attempt to resect the lesion on the left side. The wound was well irrigated. Deep tissues closed using Vicryl suture. The skin was closed with 4-0 Monocryl and nylon. The area of the right side was approached. Using the neoprobe the area of greatest radioactivity in the axilla was identified. An incision was made and carried down to a radioactive lymph node. The 10-second count on the lymph node was 2114. The background count was 35. No additional radioactive or palpable nodes were identified. The wound was well irrigated. The deep tissues were closed using 3-0 Vicryl suture. The skin was closed using 4-0 Monocryl. The area of the breast was approached. 2 needles have been placed for loc alization of the lesion in the right breast. Skin was removed anteriorly and dissection posteriorly was onto the pectoralis muscle. The tissue between the 2 needles was removed. Radiograph of the specimen revealed the needles and clips of concern were removed. After reassured that hemostasis was attained oncoplastic tissue transfer was performed. The specimen was 7 x 3 cm. A superior pillar 7 x 3 cm was formed. An inferior pillar 7 x 2 cm was formed. Titanium clips were placed. The specimen was painted for orientation. The pillars were brought together using 3-0 Vicryl suture. The deep tissues were closed using 3-0 Vicryl suture. The skin was closed using 4-0 Monocryl. The skin was further reinforced with a nylon suture both on the right and left side. 1% lidocaine 10 cc on each side were utilized. The patient tolerated the procedure in stable condition. All instrument and sponge counts were correct at the end of the case. - Sentinal Node Biopsy Operation performed with curative intent: Yes Tracer(s) used in upfront surgery (non-neoadjuvant): dye, radioactive tracer All nodes present at end of dye-filled channel removed: Yes All significantly radioactive nodes were removed: Yes All palpably suspicious nodes were removed: Yes
[2024-06-04 15:17] VITALS: TEMP 97.4
[2024-06-04 16:16] VITALS: RESP 16
[2024-06-04 17:04] VITALS: BP 152/97; PULSE 86
[2024-06-04] MEDS: ONDANSETRON ODT 4 MG TAB PO STA (17:37)
--- NOTE | 2024-06-14 11:40 | MM ---
Reason for Exam: Post Procedure Mammogram. Last screening mammogram was performed 2 month(s) ago. Patient History: Menarche at age 11. First Full-Term at age 31. Late child-bearing (after 30). Postmenopausal. Patient has history of breast feeding. Breast cancer, left, age 68. 04/25/2024, US biopsy breast add'l VAD RT on the Right side. 04/25/2024, US biopsy breast VAD RT on the Right side. 04/25/2024, Malignant US biopsy breast VAD LT on the left side. Prior Study Comparison: 04/24/2024 Bilateral MG 3D work up w/cad DIETER, [facility]. 04/25/2024 Left MG diagnostic mammo LT wo CAD., [facility]. 04/25/2024 Right MG diagnostic mammo RT wo CAD, [facility]. Tissue Density: Left: There are scattered areas of fibroglandular density. Pathology Description: Location: 12 o'clock. Needle Type: 5 cm Kopan Pathology Description: Approach: Lateral to Medial Needle Type: 7 cm Kopan The procedure of needle localization with wire placement and than surgical excision was explained to the patient. Benefits, alternatives, and risks were discussed. An informed consent was then obtained. Left breast was performed under ultrasound guidance targeting roughly 8 mm lesion 12:00 position 8 cm distance from nipple with clip. Right breast was performed under mammogram guidance. Bracketed technique is used The shortest pathway for procedure was chosen. Shortest pathway was lateral to medial approach. The overlying skin was prepped and draped in usual sterile fashion. Lidocaine buffered with bicarbonate was used as anesthetic into the skin and subcutaneous tissue up to the level of area of concern. A 5 cm needle was used in the left breast. A 5 cm needle was used anteriorly in the right breast and a 7 cm lesion was used posteriorly in the right breast. It was placed via a lateral to medial approach under mammographic guidance. Subsequent 90 degrees mammogram show the needle to be in satisfactory position relative to the targeted area. At this point, wire was placed and the needle was withdrawn. The wire was fixed to patient's skin. Images were reviewed with surgeon. Diagnostic left breast mammogram performed after wire placement as per surgeon preference and were reviewed with surgeon prior to surgery. The patient tolerated the procedure well without any immediate complication. The patient was kept in the radiology department for short stay after the procedure and then taken to surgery for surgical excision. Targeted calcifications and wires are identified in specimen mammogram in the right breast. Wire was identified in the left breast but targeted clip was not seen. At this point intraoperative ultrasound appeared to show what was suspected clip within the breast. Subsequent excision of this area did not show clip by ultrasound or x-ray. At this point we could not identify possible clip on repeat intraoperative ultrasound in the left breast. It was felt that nothing more could be done except short follow-up or left breast mammogram repeat when patient is able to after surgery. The patient was kept in hospital for short stay after the procedure and then discharged home in stable condition. Impression: Successful, uncomplicated needle localization with wire placement and surgical excision of suspicious group of calcifications in the right breast, full pathology results to follow. Unsuccessful complicated needle localization with wire placement and surgical excision of the area of concern in the left breast. Uncertain how wire became extracted from the lesion after it was successfully placed. [facility], Workstation: Proficiency, 06/05/2024 9:06 AM. Pathology Results: Results pending. Pathology Description: Approach: Lateral to Medial Needle Type: 7 cm Kopan Pathology Results: Result: Malignant, Invasive ductal carcinoma. Pathology and radiology were reviewed. Findings are concordant. A. 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 Margins negative for invasive carcinoma or DCIS. See Surgical Pathology Cancer Case Summary. B. ADDITIONAL SPECIMEN, LEFT BREAST: Benign breast with fibrocystic changes. No previous biopsy site/biopsy cavity is identified. C. LESION LEFT BREAST, EXCISION: Benign breast with proliferative fibrocystic changes including radial scar/complex sclerosing lesion, moderate usual type ductal hyperplasia and calcifications. Focal atypical ductal hyperplasia (ADH) not involving the margins. No previous biopsy site/biopsy cavity is identified. D. LEFT BREAST MASS, NEEDLE LOCALIZATION EXCISION: Benign breast with proliferative fibrocystic changes including moderate to florid usual type ductal hyperplasia and calcifications. Focal atypical ductal hyperplasia and focal flat epithelial atypia, margins negative for ADH or FEA. Small intraductal papilloma not involving the margins. No previous biopsy site/biopsy cavity is identified. E. LEFT BREAST TISSUE, EXCISION: Benign breast tissue with fibrocystic changes including calcifications and focal fat necrosis. No previous biopsy site/biopsy cavity is definitively identified. F. LEFT SENTINEL LYMPH NODE: Lymph node negative for metastasis. CK7 immunostain performed on block F1, SPENCER immunostain performed on block F2, and CKAE1/3 immunostain performed on block F3 are confirmatory (controls appropriate). G. RIGHT SENTINEL LYMPH NODE: Lymph node negative for metastasis. CK7 immunostain performed on block G1, SPENCER immunostain performed on block G2, CKAE1/3 immunostain performed on block G3, CAM 5.2 immuonstain performed on block G4, MOC-31 immunostain performed on block G5, and Ep-Cam immunostain performed on block G6 are confirmatory (controls appropriate). Previous biopsy site. Overall Assessment: Malignant Assessment: MG diagnostic mammo LT wo CAD. - Left: Known biopsy proven malignancy, BI-RAD 6. Management: Surgical Consultation of the right breast. Electronically signed and approved by: Alcon Joy M.D.
== END 2024-06-04 17:45 | disposition home or self-care (01) ==
LOC: OR 07:22
PROVIDERS: ATTEND Surgery
DX: D05.11 Intraductal carcinoma in situ of right breast (principal); N60.12 Diffuse cystic mastopathy of left breast; I47.10 Supraventricular tachycardia, unspecified; I10 Essential (primary) hypertension; F41.9 Anxiety disorder, unspecified; G47.33 Obstructive sleep apnea (adult) (pediatric); Z87.891 Personal history of nicotine dependence; Z79.899 Other long term (current) drug therapy
CPT/HCPCS: 80048; 88342; 88307; 88341; 77065; 76098 ×2; 19281; 19285; 38792; 19120; C1819 ×2; J2250; J0330; J1644; J1100; J0690; J2405; J2003; J3010; J2704; Q9968; J2371; 19282

== ENCOUNTER 2024-06-04 23:46 | Emergency (ER) | payer MEDICARE ==
[2024-06-04 23:52] VITALS: TEMP 97.4
--- NOTE | 2024-06-05 00:12 | ED ---
Nausea/Vomiting/Diarrhea HPI - General Chief complaint: Nausea/Vomiting/Diarrhea Stated complaint: Post op complications, vomiting Time Seen by Provider: 06/04/24 23:59 Source: patient, RN notes reviewed Mode of arrival: wheelchair Limitations: no limitations - History of Present Illness Initial comments: This is a 68-year-old female who presents to the emergency department for nausea and vomiting. Patient had a bilateral lumpectomy today she was discharged around 6:30 PM. States that after waking up from the anesthesia she started to have nausea and had 1 small episode of emesis prior to being discharged. However, shortly after being discharged she developed nausea and vomiting that has since persisted. Denies any abdominal pain. Prior to the surgery she was doing fine. Denies any diarrhea or constipation. MD complaint: nausea, vomiting - Related Data Home Medications Medication Instructions Recorded Confirmed Multivitamins, Thera [Multivitamin] 1 tab PO DAILY 10/28/14 05/29/24 Magnesium 250 mg PO DAILY 12/20/23 05/29/24 buPROPion HCL [buPROPion HCL XL] 150 mg PO [facility] 12/20/23 05/29/24 lisinopriL [Zestril] 20 mg PO HS 12/20/23 05/29/24 Biotin 5 mg PO DAILY 04/24/24 05/29/24 Ascorbic Acid [Vitamin C] 1,000 mcg PO DAILY 05/29/24 05/29/24 Aspirin [Adult Low Dose Aspirin EC] 81 mg PO DAILY 05/29/24 05/29/24 Cholecalciferol [Vitamin D3 (25 25 mcg PO DAILY 05/29/24 05/29/24 Mcg = 1000 Iu)] Cranberry Fruit Extract [Cranberry] 500 mg PO BID 05/29/24 05/29/24 Cyanocobalamin (Vitamin B-12) 5,000 mcg PO DAILY 05/29/24 05/29/24 [Vitamin B-12] L.acidoph,Paracasei, B.lactis 2 cap PO DAILY 05/29/24 05/29/24 [Probiotic] Loratadine [Claritin] 10 mg PO DAILY 05/29/24 05/29/24 Rosuvastatin [Crestor] 10 mg PO HS 05/29/24 05/29/24 Ubidecarenone [Co Q-10] 200 mg PO DAILY 05/29/24 05/29/24 Previous Rx's Medication Instructions Recorded oxyCODONE HCL [OxyIR] 5 mg PO Q6H PRN #10 tab 06/04/24 Ondansetron Odt [Zofran Odt] 4 mg PO Q8HR PRN #20 tab 06/05/24 Promethazine [Phenergan] 25 mg PO Q6HR PRN #20 tablet 06/05/24 Allergies Allergy/AdvReac Type Severity Reaction Status Date / Time No Known Allergies Allergy Verified 06/04/24 23:52 Review of Systems ROS Statement: Those systems with pertinent positive or pertinent negative responses have been documented in the HPI. ROS Other: All systems not noted in ROS Statement are negative. Past Medical History Past Medical History: Hypertension Additional Past Medical History / Comment(s): hx frequent UTI's, seasonal allergies, palpitations, hemorrhoids History of Any Multi-Drug Resistant Organisms: None Reported Past Surgical History: Breast Surgery Additional Past Surgical History / Comment(s): bilateral lumpectomy Past Anesthesia/Blood Transfusion Reactions: No Reported Reaction Past Psychological History: Anxiety Smoking Status: Former smoker Past Alcohol Use History: Rare Past Drug Use History: None Reported - Past Family History Mother Family Medical History: No Reported History General Exam Limitations: no limitations General appearance: alert, in no apparent distress Head exam: Present: atraumatic, normocephalic, normal inspection Respiratory exam: Present: normal lung sounds bilaterally. Absent: respiratory distress, wheezes, rales, rhonchi, stridor Cardiovascular Exam: Present: regular rate, normal rhythm, normal heart sounds. Absent: systolic murmur, diastolic murmur, rubs, gallop, clicks GI/Abdominal exam: Present: soft, normal bowel sounds. Absent: distended, tenderness, guarding, rebound, rigid Neurological exam: Present: alert, oriented X3, CN II-XII intact Psychiatric exam: Present: normal affect, normal mood Skin exam: Present: warm, dry, intact, normal color. Absent: rash Course Vital Signs 06/04/24 06/05/24 23:48 02:00 Temperature 97.4 F L Pulse Rate 93 88 Respiratory 18 16 Rate Blood Pressure 160/78 144/78 O2 Sat by Pulse 99 99 Oximetry Medical Decision Making - Medical Decision Making This is a 68-year-old female who presents to the emergency department for nausea and vomiting. Was pt. sent in by a medical professional or institution? @ -No Did you speak to anyone other than the patient for history? @ -No Did you review nursing and triage notes? @ -Yes, and I agree, it is accurate with regards to the patient's symptoms. Were old charts reviewed? @ -No Differential Diagnosis? @ -Differential Nausea and Vomiting: Gastroenteritis, cholecystitis, appendicitis, pancreatitis, migraine, benign positional vertigo, food borne illness, pyelonephritis, irritable bowel syndr ome, influenza, Covid, GERD, incarcerated hernia, intestinal obstruction, this is not meant to be an all-inclusive list. EKG interpreted by me (3pts min.)? @ -Not obtained X-rays interpreted by me (1pt min.)? @ -Not obtained CT interpreted by me (1pt min.)? @ -Not obtained U/S interpreted by me (1pt. min.)? @ -Not obtained What testing was considered but not performed? (CT, X-rays, U/S, labs)? Why? @ -None What meds were considered but not given? Why? @ -None Did you discuss the management of the patient with other professionals? @ -No Did you reconcile home meds? @ -No Was smoking cessation discussed for >3mins.? @ -No Was critical care preformed (if so, how long)? @ -No Were there social determinants of health that impacted care today? How? (Homelessness, low income, unemployed, alcoholism, drug addiction, transpo rtation, low edu. Level, literacy, decrease access to med. care, senior living, rehab)? @ -No Was there de-escalation of care discussed even if they declined? (Discuss DNR or withdrawal of care, Hospice)? @ -No What co-morbidities impacted this encounter? (DM, HTN, Smoking, COPD, CAD, Cancer, CVA, Hep., AIDS, mental health diagnosis, sleep apnea, morbid obesity)? @ -None Was patient admitted / discharged? @ -Discharged. Lab work demonstrates mild leukocytosis and was otherwise unremarkable. Symptoms likely related to the anesthesia, given that it occurred after coming out of the anesthesia and she was fine prior. She was first treated with IV fluids and Zofran. She had temporary improvement in symptoms, h owever nausea and vomiting then returned. She was then given a dose of Compazine, which she felt was more beneficial. She was tolerating oral intake at that point and she was comfortable with discharge home. Prescription for Zofran and Phenergan provided with dosing instructions reviewed. Advised she slowly advance her diet as tolerated and remain well-hydrated. Patient discharged home in stable condition. Case discussed with ED attending Dr. Farah. Return precautions reviewed in depth, the patient is instructed to return to the emergency department with any new, worsening, or concerning symptoms. Patient verbalized understanding. Undiagnosed new problem with uncertain prognosis? @ -None Drug Therapy requiring intensive monitoring for toxicity (Heparin, Nitro, Insulin, Cardizem)? @ -None Were any procedures done? @ -None Diagnosis/symptom? @ -Postop nausea and vomiting Acute, or Chronic, or Acute on Chronic? @ -Acute Uncomplicated (without systemic symptoms) or Complicated (systemic symptoms)? @ -Uncomplicated Side effects of treatment? @ -None Exacerbation, Progression, or Severe Exacerbation] @ -Not applicable Poses a threat to life or bodily function? @ -No - Lab Data Result diagrams: 06/05/24 00:38 06/05/24 00:38 Lab Results 06/05/24 06/05/24 06/05/24 Range/Units 00:38 00:38 00:38 WBC 11.6 H (3.8-10.6) k/uL RBC 4.35 (3.80-5.40) m/uL Hgb 13.7 (11.4-16.0) gm/dL Hct 40.3 (34.0-46.0) % MCV 92.8 (80.0-100.0) fL MCH 31.4 (25.0-35.0) pg MCHC 33.9 (31.0-37.0) g/dL RDW 12.5 (11.5-15.5) % Plt Count 218 (150-450) k/uL MPV 7.0 Neutrophils % 88 % Lymphocytes % 9 % Monocytes % 3 % Eosinophils % 0 % Basophils % 0 % Neutrophils # 10.3 H (1.3-7.7) k/uL Lymphocytes # 1.0 (1.0-4.8) k/uL Monocytes # 0.3 (0-1.0) k/uL Eosinophils # 0.0 (0-0.7) k/uL Basophils # 0.0 (0-0.2) k/uL Sodium 141 (137-145) mmol/L Potassium 4.1 (3.5-5.1) mmol/L Chloride 108 H (98-107) mmol/L Carbon Dioxide 24 (22-30) mmol/L Anion Gap 9 mmol/L BUN 17 (7-17) mg/dL Creatinine 0.69 (0.52-1.04) mg/dL Est GFR (CKD-EPI)AfAm >90 (>60 ml/min/1.73 sqM) Est GFR (CKD-EPI)NonAf 89 (>60 ml/min/1.73 sqM) Glucose 168 H (74-99) mg/dL Plasma Lactic Acid Asa 1.7 (0.7-2.0) mmol/L Calcium 9.1 (8.4-10.2) mg/dL Total Bilirubin 0.5 (0.2-1.3) mg/dL AST 27 (14-36) U/L ALT 21 (4-34) U/L Alkaline Phosphatase 85 (38-126) U/L Total Protein 7.2 (6.3-8.2) g/dL Albumin 4.3 (3.5-5.0) g/dL Amylase 65 (30-110) U/L Lipase 174 (23-300) U/L Disposition Clinical Impression: Postoperative nausea and vomiting Disposition: HOME SELF-CARE Instructions (If sedation given, give patient instructions): Acute Nausea and Vomiting (ED) Additional Instructions: Return to the emergency department with any new, worsening, or concerning symptoms. Take the Zofran up to every 8 hours as needed for nausea and vomiting. You can take the Phenergan up to every 6 hours as needed for nausea and vomiting. Slowly advance your diet as tolerated and remain well-hydrated. Prescriptions: Promethazine [Phenergan] 25 mg PO Q6HR PRN #20 tablet PRN Reason: Nausea And Vomiting Ondansetron Odt [Zofran Odt] 4 mg PO Q8HR PRN #20 tab PRN Reason: Nausea And Vomiting Is patient prescribed a controlled substance at d/c from ED?: No Referrals: Chloé Dalton MD [Primary Care Provider] - 1-2 days Time of Disposition: 02:03
[2024-06-05] MEDS: DEXAMETHASONE SOD PHOSPHATE 10 MG/ML 1 ML VIAL IVP STA (00:38)
[2024-06-05] MEDS: SODIUM CHLORIDE 0.9% 500 ML 500 ML IV STA (00:38)
[2024-06-05] MEDS: SODIUM CHLORIDE 0.9% 1,000 ML IV STA (00:38)
[2024-06-05] MEDS: FAMOTIDINE 20 MG/2 ML VIAL IV STA (00:38)
[2024-06-05] MEDS: ONDANSETRON 4 MG/2 ML VIAL IVP STA (00:38)
[2024-06-05 00:57] LABS: Basophils % (A) 0 %; Eosinophils % (A) 0 %; HCT 40.3 % (34.0-46.0); HGB 13.7 gm/dL (11.4-16.0); Lymphocytes % (A) 9 %; MCH 31.4 pg (25.0-35.0); MCHC 33.9 g/dL (31.0-37.0); MCV 92.8 fL (80.0-100.0); Monocytes # (A) 0.3 k/uL (0-1.0); Monocytes % (A) 3 %; Neutrophils # (A) 10.3 k/uL (1.3-7.7); Neutrophils % (A) 88 %; Platelet Count 218 k/uL (150-450); RBC 4.35 m/uL (3.80-5.40); RDW 12.5 % (11.5-15.5); WBC 11.6 k/uL (3.8-10.6)
[2024-06-05 01:12] LABS: ALT 21 U/L (4-34); AST 27 U/L (14-36); African American GFR (CKD) >90 (>60 ml/min/1.73 sqM); Albumin 4.3 g/dL (3.5-5.0); Alkaline Phosphatase 85 U/L (38-126); Amylase 65 U/L (30-110); Anion Gap 9 mmol/L; Blood Urea Nitrogen 17 mg/dL (7-17); Calcium 9.1 mg/dL (8.4-10.2); Carbon Dioxide 24 mmol/L (22-30); Chloride 108 mmol/L (98-107); Glucose 168 mg/dL (74-99); Lipase 174 U/L (23-300); Non-African American GFR(CKD) 89 (>60 ml/min/1.73 sqM); Potassium 4.1 mmol/L (3.5-5.1); Sodium 141 mmol/L (137-145); Total Bilirubin 0.5 mg/dL (0.2-1.3); Total Protein 7.2 g/dL (6.3-8.2)
[2024-06-05] MEDS: KETOROLAC 15 MG/ML 1 ML VIAL IVP STA ×2 (02:10→03:49)
[2024-06-05] MEDS: ACETAMINOPHEN TAB 500 MG TAB PO STA (02:11)
[2024-06-05] MEDS: PROCHLORPERAZINE INJ 10 MG/2 ML VIAL IVP STA (02:31)
[2024-06-05] MEDS: ACETAMINOPHEN IV (For NPO) 1,000 MG in EMPTY BAG 1 BAG IVPB STA (02:31)
[2024-06-05] MEDS: ONDANSETRON 4 MG ODT STARTER PACK 2 TAB BTL PO STA (03:51)
[2024-06-05 04:37] VITALS: BP 142/78; PULSE 79; RESP 18
== END 2024-06-05 04:48 | disposition home or self-care (01) ==
LOC: EC 23:46
DX: R11.2 Nausea with vomiting, unspecified (principal); Z87.891 Personal history of nicotine dependence
CPT/HCPCS: 99283 ×2; 36415; 80053; 82150; 83605; 83690; 85025; 96365; 96375; 96376; 96361; J0780; J1100; J2405; J3490; J0131; J1885; S0119

== ENCOUNTER → 2024-06-07 | Outpatient (CLI) | payer MEDICARE ==
[2024-06-07 12:49] VITALS: BP 159/82; PULSE 117; RESP 17; TEMP 98
--- NOTE | 2024-06-07 13:27 | P.BCPO ---
Progress Note - Text Progress Note Date: 06/07/24 Philly is status post bilateral lumpectomy and SNB on 06-04-24. The clip was not found in the left breast specimen. Pathology is pending. She had nausea post procedure. She is doing well at this time. Examination: lungs: clear heart: RRR Incision clean and dry bilat and axilla bilat Impression: patient doing well await pathology Plan: follow up in one week leave sutures at this time Post Op Education - Post Op Education Post Op Education Provided Date: 06/07/24 - Functional Assessment Performed?: Yes
== END ==
LOC: WWCWWP 12:36
PROVIDERS: ATTEND Surgery
DX: Z90.13 Acquired absence of bilateral breasts and nipples (principal); Z87.891 Personal history of nicotine dependence

== ENCOUNTER → 2024-06-20 | Outpatient (CLI) | payer MEDICARE ==
[2024-06-20 08:49] VITALS: BP 166/89; PULSE 101; RESP 17; TEMP 98.2
--- NOTE | 2024-06-20 08:59 | P.BCPO ---
Progress Note - Text Progress Note Date: 06/20/24 06/20/24August is status post bilateral lumpectomy and SNB on 06-04-24. The clip was not found in the left breast specimen. Pathology a centimeter area of DCIS in the right breast as well as a 6 mm area of invasive ductal carcinoma. The margins were negative. Both sentinel nodes were negative. The lesion which was previously biopsied in the left breast was not identified in the pathology specimens. She had nausea post procedure, and not any further nausea. She is doing well at this time. Examination: lungs: clear heart: RRR Incision clean and dry bilat and axilla bilat , seroma left axilla Impression: patient doing well Plan: repeat left breast mammogram in 4 months to evaluate area of clip and cancer pathology report given to the patient Post Op Education - Post Op Education Post Op Education Provided Date: 06/07/24 - Functional Assessment Performed?: Yes Additional CC's: Chloé Dalton
== END ==
LOC: WWCWWP 08:34
PROVIDERS: ATTEND Surgery
DX: D05.11 Intraductal carcinoma in situ of right breast (principal); Z90.13 Acquired absence of bilateral breasts and nipples; Z87.891 Personal history of nicotine dependence

== ENCOUNTER → 2024-07-16 | Outpatient (CLI) | payer MEDICARE ==
--- NOTE | 2024-07-16 08:07 | MM ---
Reason for Exam: Follow-up at short interval from prior study. Last screening mammogram was performed 3 month(s) ago. Patient History: Menarche at age 11. First Full-Term at age 31. Late child-bearing (after 30). Postmenopausal. Patient has history of breast feeding. Breast cancer, left, age 68. Breast cancer, right, age 68. 06/04/2024, Lumpectomy on the Right side. 06/04/2024, US breast localization LT on the Left side. 06/04/2024, MG pre op needle loc RT on the Right side. 06/04/2024, Malignant MG pre op loc each addl RT on the right side. 04/25/2024, US biopsy breast add'l VAD RT on the Right side. 04/25/2024, US biopsy breast VAD RT on the Right side. 04/25/2024, Malignant US biopsy breast VAD LT on the left side. Prior Study Comparison: 04/25/2024 Left MG diagnostic mammo LT wo CAD., [facility] 04/25/2024 Right MG diagnostic mammo RT wo CAD, [facility]. 06/04/2024 Left MG diagnostic mammo LT wo CAD., [facility]. Tissue Density: Left: The breasts are heterogeneously dense, which may obscure small masses. Findings: Analyzed By CAD. No evidence for previous biopsy clip. There is multiple surgical clips present. Hematoma measuring 10.7 x 9.1 cm No new suspicious masses, calcifications or distortions. Overall Assessment: Benign, BI-RAD 2 Management: Diagnostic Mammogram of both breasts in 1 year. Results were given to the patient verbally at the time of exam. Patient should continue monthly self-breast exams. A clinical breast exam by your physician is recommended on an annual basis. This exam should not preclude additional follow-up of suspicious palpable abnormalities. Note on Millicent scores and lifetime risk: 1. A Millicent score greater than 3% is considered moderate risk. If this is the case, consider specialist referral to assess eligibility for a risk reducing agent. 2. If overall lifetime risk for the development of breast cancer is 20% or higher, the patient may qualify for future screening with alternating mammogram and breast MRI. [facility], , 07/16/2024 8:04 AM. Electronically signed and approved by: Miguel Beach DO
== END | disposition home or self-care (01) ==
LOC: RADMAMWWP 07:30
PROVIDERS: ATTEND Radiology Radiation Oncology
DX: C50.812 Malignant neoplasm of overlapping sites of left female breast (principal); C50.411 Malignant neoplasm of upper-outer quadrant of right female breast; R92.333 Mammographic heterogeneous density, bilateral breasts; Z85.3 Personal history of malignant neoplasm of breast; Z78.0 Asymptomatic menopausal state
CPT/HCPCS: 77065; G0279; 77061

== ENCOUNTER → 2024-07-25 | Outpatient (CLI) | payer MEDICARE ==
--- NOTE | 2024-07-25 10:27 | USB ---
Reason for Exam: Clinical finding. Patient History: Menarche at age 11. First Full-Term at age 31. Late child-bearing (after 30). Postmenopausal. Patient has history of breast feeding. Breast cancer, left, age 68. Breast cancer, right, age 68. 06/04/2024, Lumpectomy on the Right side. 06/04/2024, US breast localization LT on the Left side. 06/04/2024, MG pre op needle loc RT on the Right side. 06/04/2024, Malignant MG pre op loc each addl RT on the right side. 04/25/2024, US biopsy breast add'l VAD RT on the Right side. 04/25/2024, US biopsy breast VAD RT on the Right side. 04/25/2024, Malignant US biopsy breast VAD LT on the left side. Prior Study Comparison: 04/24/2024 Bilateral US breast workup limited DIETER, [facility]. 04/25/2024 Right MG diagnostic mammo RT wo CAD, [facility]. 06/04/2024 Left MG diagnostic mammo LT wo CAD., [facility]. 07/16/2024 Left MG 3D diag mammo w/cad LT, [facility]. Findings: The whole breast of the right breast, the axilla of the right breast and the retroareolar of the right breast were scanned. A complete US of all four quadrants of the breast , axilla, and retro-areolar region were reviewed. There is a large, complex fluid collection at the patient's lumpectomy site measuring 11.3 x 7.0 cm. Since of internal septations are present. Skin thickening measuring up to 6 mm with diffuse parenchymal edema. No other solid or cystic lesion or axillary adenopathy. Overall Assessment: Probably benign, BI-RAD 3 Management: Diagnostic Breast Ultrasound of the right breast in 3 months. Complex postoperative seroma. If signs or symptoms of infection, percutaneous aspiration can be performed. Results were given to the patient verbally at the time of exam. [facility], , 07/25/2024 10:24 AM. Electronically signed and approved by: Abeba Clayton M.D. Radiologist
== END | disposition home or self-care (01) ==
LOC: RADUSWWP 09:46
PROVIDERS: ATTEND Surgery
DX: C50.911 Malignant neoplasm of unspecified site of right female breast (principal); C50.912 Malignant neoplasm of unspecified site of left female breast; Z78.0 Asymptomatic menopausal state; Z85.3 Personal history of malignant neoplasm of breast
CPT/HCPCS: 76942

== ENCOUNTER → 2024-07-25 | Outpatient (CLI) | payer MEDICARE ==
[2024-07-25 07:42] VITALS: BP 133/76; PULSE 94; RESP 17; TEMP 97.3
--- NOTE | 2024-07-25 08:09 | P.PN ---
Subjective Progress Note Date: 07/25/24 Principal diagnosis: bilateral invasive ductal breast cancer/right breast [id number]+Her2-G2 stage IA left breast [id number]+Her2-G2 Stage IA right breast [id number]+Her2-G2 stage IB Post op a stage IA T1 lesion left breast [id number]+Her2-G2 Stage IA History of Present Illness Consult date: 05-24-24 Reason for Consult: bilateral breast cancer Requesting physician: Chloé Dalton History of present illness: Philly is a 68-year-old female seen in consultation for Dr. Medel regarding biopsy-proven bilateral breast cancer. She underwent a bilateral mammogram on 2223 which led to diagnostic mammograms on 04-24-2024. This revealed a region of calcification at the 10:00 right breast spanning nearly 5.3 cm. An associated density was identified. On the left there was a persistent 5 mm nodule near the 12 o'clock position for which ultrasound was recommended. She underwent bilateral breast ultrasound in 04-24-2024. In the right breast at the 10 o'clock position there was a 1.2 x 1.7 cm density. Additionally there was a prominent lymph node in the right axilla. It showed uniform cortical thi ckening up to 2.7 mm in tissue sampling was recommended of both of these lesions. In the left breast at the 12 o'clock position there was a 3 x 4 mm lesion for which tissue biopsy was recommended. The patient underwent ultrasound-guided core biopsy in 04-25-2024. 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 The tumors were ER positive GA positive and HER2 negative. This was a routine mammogram she did not feel anything in her breast. Her last mammogram was many years ago. She was not complaining of any nipple discharge or skin changes. About 15 years ago a breast biopsy benign. She had a very bad experience with a physician many years ago and therefore was reluctant to seek medical care. oncotype: two specimens one 19, and one 10 PET scan no mets, ? disease right axillary node; already had a biopsy of right node and it was (-) review note medical oncology 05-09-24 review note radiation oncology: 05-20-24 lumpectomy on 06-04-24 right breast margins (-) multifocal invasive ductal cancer and extensive DCIS, invasive tumor 6 mm; node (-); left breast no clip in specimen/ ADH no biopsy site noted, no clip in mammogram post procedure; node (-) represent of case at tumor board on 07-23-34 felt area of concern removed from left breast, consider need fro radiation on left side node (-) Patient states 07-23-24 her right breast became swollen and warm and erythematous, she is not complaining of any fever or chills Caffeine: 1 cup/day nicotine: stopped 10 years ago; 05/23 PPD chocolate: weekly BCP: about 2 years Family History: father: skin cancer mother: ? Hormonal History: menarche: 11 , age at first : 22, breast fed: Yes menopause: 47 hormones: bioidentical for a short time 1 year or less Surgical history: biopsy of the breast 15 years ago ? side Medical History: HTN Social History: nicotine: as above alcohol: none drugs: none Review of Systems - Constitutional Denies fever, Denies weight loss - EENT Eyes: denies blurred vision Ears: bilateral: decreased hearing, deny: tinnitus Ears, nose, mouth and throat: Denies dysphagia - Breasts bilateral: as per HPI - Cardiovascular Denies chest pain, Denies shortness of breath - Respiratory Denies cough - Gastrointestinal Reports as per HPI - Genitourinary Genitourinary: Denies dysuria, Denies hematuria Menstruation: Reports postmenopausal - Musculoskeletal Reports as per HPI - Integumentary Denies rash, Denies unusual bruising - Neurological Denies headaches, Denies syncope - Psychiatric Reports as per HPI - Endocrine Reports as per HPI, Reports weight change - Hematologic/Lymphatic Denies easy bleeding, Denies easy bruising - Allergic/Immunologic Reports as per HPI Past Medical History Past Medical History: Hypertension Additional Past Medical History / Comment(s): hx frequent UTI's, seasonal allergies, palpitations, hemorrhoids History of Any Multi-Drug Resistant Organisms: None Reported Past Surgical History: No Surgical Hx Reported Past Anesthesia/Blood Transfusion Reactions: No Reported Reaction Past Psychological History: Anxiety Smoking Status: Former smoker Past Alcohol Use History: Rare Additional Past Alcohol Use History / Comment(s): quit smoking 2013, smoked for 5 years Past Drug Use History: None Reported - Past Family History Mother Family Medical History: No Reported History Medications and Allergies Home Medications Medication Instructions Recorded Confirmed Type Cranberry Conc/C/Bacill Coag 1 each PO BID 10/28/14 04/24/24 History [Cranberry Tablet] Multivitamins, Thera [Multivitamin] 1 tab PO DAILY 10/28/14 04/24/24 History Magnesium 250 mg PO DAILY 12/20/23 04/24/24 History buPROPion HCL [buPROPion HCL XL] 1 each PO DAILY 12/20/23 04/24/24 History lisinopriL [Zestril] 10 mg PO DAILY 12/20/23 04/24/24 History Biotin 5 mg PO DAILY 04/24/24 04/24/24 History Allergies Allergy/AdvReac Type Severity Reaction Status Date / Time No Known Allergies Allergy Verified 04/24/24 14:05 Objective - Vital Signs Vital signs: Intake & Output 07/24/24 07/25/24 07/25/24 18:59 06:59 18:59 Weight 86.183 kg - Constitutional General appearance: Present: cooperative - EENT Eyes: Present: EOMI ENT: Present: hearing grossly normal - Neck Neck: Present: normal ROM - Respiratory Respiratory: bilateral: CTA - Cardiovascular Rhythm: regular Heart sounds: normal: S1, S2 - Integumentary Integumentary Comment(s): The patient has erythema from the inferior medial aspect of the right breast extending laterally. The breast is swollen at the area of the prior lumpectomy with a probable seroma but the erythema is separate from the area of the incision. She also has what appears to be a fungal infection under the right breast. The left breast incision is clean and dry with no evidence of any infection Assessment and Plan Assessment: Impression: Swollen erythematous right breast medial inferior separate from the area of her lumpectomy site Probable fungal infection under right breast in addition to the above findings Plan: Aspiration seroma Ultrasound to determine whether there is more fluid which can be aspirated Oral antibiotics Antifungal cream The patient will reschedule her appointment with radiation oncology as she did have an appointment for tomorrow Patient will follow-up with me tomorrow Following informed consent the area of concern in the right breast was prepped using alcohol. 18-gauge needle and a 20 cc syringe was used to aspirate 220 cc of straw-colored fluid. Although the fluid does not appear infected it is sent for cultures. The patient will be started on Keflex and nystatin cream given. Cultures are being sent. Ultrasound is being obtained to determine if there is more fluid which can be aspirated
[2024-07-25 10:07] LABS: Basophils % (A) 0 %; Eosinophils # (A) 0.2 k/uL (0-0.7); Eosinophils % (A) 2 %; HCT 38.9 % (34.0-46.0); HGB 12.1 gm/dL (11.4-16.0); Hypochromasia Slight; Lymphocytes # (A) 2.3 k/uL (1.0-4.8); Lymphocytes % (A) 22 %; MCH 29.4 pg (25.0-35.0); MCHC 31.2 g/dL (31.0-37.0); MCV 94.3 fL (80.0-100.0); Mean Platelet Volume 7.4; Monocytes # (A) 0.6 k/uL (0-1.0); Monocytes % (A) 5 %; Neutrophils # (A) 7.2 k/uL (1.3-7.7); Neutrophils % (A) 69 %; Platelet Count 391 k/uL (150-450); RBC 4.13 m/uL (3.80-5.40); RDW 12.7 % (11.5-15.5); WBC 10.4 k/uL (3.8-10.6)
== END ==
LOC: WWCWWP 07:26
PROVIDERS: ATTEND Surgery
DX: N64.59 Other signs and symptoms in breast (principal); Z85.3 Personal history of malignant neoplasm of breast; Z87.891 Personal history of nicotine dependence
CPT/HCPCS: 85025; 87070; 87075; 87205

== ENCOUNTER 2024-07-29 13:02 | Inpatient (IN) | payer MEDICARE ==
[2024-07-29] MEDS ORDERED: NALOXONE 0.4 MG/ML 1 ML VIAL IV PRN (15:16)
[2024-07-29] MEDS ORDERED: LACTULOSE 20 GM/30 ML CUP PO PRN (15:16)
[2024-07-29] MEDS ORDERED: ALPRAZolam 0.25 MG TAB PO PRN (15:16)
[2024-07-29] MEDS ORDERED: TEMAZEPAM 15 MG CAP PO PRN (15:16)
[2024-07-29] MEDS ORDERED: CALCIUM CARBONATE 500 MG CHEWABLE PO PRN (15:16)
[2024-07-29 16:59] LABS: ALT 20 U/L (4-34); AST 24 U/L (14-36); African American GFR (CKD) >90 (>60 ml/min/1.73 sqM); Albumin 3.4 g/dL (3.5-5.0); Albumin/Globulin Ratio 1.2; Alkaline Phosphatase 89 U/L (38-126); Anion Gap 6 mmol/L; Blood Urea Nitrogen 10 mg/dL (7-17); Calcium 9.3 mg/dL (8.4-10.2); Carbon Dioxide 28 mmol/L (22-30); Chloride 106 mmol/L (98-107); Globulin 2.9 g/dL; Glucose 81 mg/dL (74-99); Non-African American GFR(CKD) >90 (>60 ml/min/1.73 sqM); Potassium 3.9 mmol/L (3.5-5.1); Sodium 140 mmol/L (137-145); Total Bilirubin 0.5 mg/dL (0.2-1.3); Total Protein 6.3 g/dL (6.3-8.2)
[2024-07-29] MEDS: ENOXAPARIN 40 MG/0.4 ML SYRINGE SQ SCH (17:27)
[2024-07-29] MEDS ORDERED: VANCOMYCIN IV PER PHARMACY 1 EACH MISC MISCELLANE PRN (17:34)
[2024-07-29 17:36] LABS: Basophils % (A) 1 %; Eosinophils # (A) 0.2 k/uL (0-0.7); Eosinophils % (A) 2 %; HCT 36.9 % (34.0-46.0); HGB 11.6 gm/dL (11.4-16.0); Hypochromasia Slight; Lymphocytes # (A) 2.2 k/uL (1.0-4.8); Lymphocytes % (A) 26 %; MCH 29.3 pg (25.0-35.0); MCHC 31.4 g/dL (31.0-37.0); MCV 93.1 fL (80.0-100.0); Monocytes # (A) 0.5 k/uL (0-1.0); Monocytes % (A) 6 %; Neutrophils # (A) 5.4 k/uL (1.3-7.7); Neutrophils % (A) 64 %; Platelet Count 337 k/uL (150-450); RBC 3.97 m/uL (3.80-5.40); RDW 12.8 % (11.5-15.5); WBC 8.3 k/uL (3.8-10.6)
[2024-07-29] MEDS: VANCOMYCIN 1,500 MG in SODIUM CHLORIDE 0.9% 500 ML 500 ML IVPB SCH (18:21)
--- NOTE | 2024-07-29 19:14 | P.HPIM ---
History of Present Illness H&P Date: 07/29/24 Chief Complaint: Right breast infection Very pleasant 68-year-old patient, with chronic medical conditions that include hypertension, hyperlipidemia, anxiety, obstructive sleep apnea uses CPAP.. Patient is undergone bilateral lumpectomy by Dr. Laya Bosch. This was done on June 04, 2024. 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 Negative margins. Both radiation and medical oncology was also involved. More details in the surgeon's notes. On July 25 right breast was drained, felt to have a. Not abscess. Patient was discharged on Keflex. Swelling tenderness, pain currently increased. Patient therefore being admitted for having failed outpatient treatment and IV antibiotics. Patient is hard of hearing. A bit forgetful. is helping with the history. Patient denies any fever and chills. Appetite is fair. Review of systems: GEN.: Tired EYES: None HEENT: [Decreased hearing NECK: None RESPIRATORY: None CARDIOVASCULAR: None GASTROINTESTINAL: None GENITOURINARY: None MUSCULOSKELETAL: None LYMPHATICS: None HEMATOLOGICAL: None PSYCHIATRY: None NEUROLOGICAL: Forgetful Social history: . 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 EYES: Pupils equal. Conjunctiva fara l. HEENT: External appearance of nose and ears normal, oral cavity grossly normal. NECK: JVD not raised; masses not palpable. HEART: First and second heart sounds are normal; no edema. LUNGS: Respiratory rate normal; clear to auscultation. ABDOMEN: Soft, nontender, liver spleen not palpable, no masses palpable. PSYCH: Alert and oriented x3; mood and affect fara l. MUSCULOSKELETAL:No Clubbing/cyanosis;muscles-grossly intact NEUROLOGICAL: Cranial nerves grossly intact; no facial asymmetry, power and sensation grossly intact. LYMPHATICS: No lymph nodes palpable in the axilla and neck Right breast: Examined in presence of nurse Prudence area of hardness on the r ight breast. Some tenderness. Extending into the axilla. No obvious fluctuance. INVESTIGATIONS, reviewed in the clinical context: July 29, 2024: White count 8.3 hemoglobin 11.6 platelets 337 sodium 140 potassium 3.9 creatinine 0.57 Assessment plan: -Acute right breast cellulitis, with underlying fluid collection. It was attempted to be drained outpatient today with no fluid output. Patient has been on Keflex for last 4 to 5 days. Has failed outpatient treatment. IV vancomycin. ID consulted. K-pad for locally treatment. -Essential hypertension Zestril 20 mg a day -Hyperlipidemia Crestor 10 mg a day -Anxiety Bupropion 150 mg a day -Chronic urine incontinence -Obstructive sleep apnea, uses CPAP at home continue the same Home medications reviewed. Discussed with patient at the bedside. Having failed outpatient treatment will require IV antibiotics until clinical r esponse. Given the complexity and severity of patient's condition expect the patient to be in the hospital at least for 2 overnights. Consultation to Laya Bosch and ID. Past Medical History Past Medical History: Hypertension Additional Past Medical History / Comment(s): hx frequent UTI's, seasonal allergies, palpitations, hemorrhoids History of Any Multi-Drug Resistant Organisms: None Reported Past Surgical History: Breast Surgery Additional Past Surgical History / Comment(s): bilateral lumpectomy Past Anesthesia/Blood Transfusion Reactions: No Reported Reaction Smoking Status: Former smoker - Past Family History Mother Family Medical History: No Reported History Medications and Allergies Home Medications Medication Instructions Recorded Confirmed Type Magnesium 250 mg PO DAILY 12/20/23 07/29/24 History buPROPion HCL [buPROPion HCL XL] 150 mg PO DAILY 12/20/23 07/29/24 History Ascorbic Acid [Vitamin C] 1,000 mcg PO DAILY 05/29/24 07/29/24 History Aspirin [Adult Low Dose Aspirin EC] 81 mg PO DAILY 05/29/24 07/29/24 History Cholecalciferol [Vitamin D3 (25 25 mcg PO DAILY 05/29/24 07/29/24 History Mcg = 1000 Iu)] Cranberry Fruit Extract [Cranberry] 500 mg PO DAILY 05/29/24 07/29/24 History Cyanocobalamin (Vitamin B-12) 5,000 mcg PO DAILY 05/29/24 07/29/24 History [Vitamin B-12] Loratadine [Claritin] 10 mg PO DAILY 05/29/24 07/29/24 History Rosuvastatin [Crestor] 10 mg PO DAILY 05/29/24 07/29/24 History Ubidecarenone [Co Q-10] 200 mg PO DAILY 05/29/24 07/29/24 History Cephalexin [Keflex] 500 mg PO Q6HR 1 Days #20 cap 07/25/24 07/29/24 Rx Nystatin/Triamcin 1 applic TOPICAL BID #30 gram 07/25/24 07/29/24 Rx [Nystatin-Triamcinolone Cream] Multivit-Min/Iron/Folic/Lutein 1 tab PO DAILY 07/29/24 07/29/24 History [Centrum Silver Women Tablet] lisinopriL [Zestril] 20 mg PO DAILY 07/29/24 07/29/24 History Allergies Allergy/AdvReac Type Severity Reaction Status Date / Time No Known Allergies Allergy Verified 07/29/24 14:38 Physical Exam Vitals: Vital Signs Temp Pulse Resp BP Pulse Ox 07/29/24 13:28 98.0 F 87 18 123/75 99 Intake and Output 07/29/24 07/29/24 07/29/24 06:59 14:59 22:59 Other: # Voids 1 Weight 92.2 kg 92.2 kg Results CBC & Chem 7: 07/29/24 16:15 07/29/24 16:15 Labs: Abnormal Lab Results - Last 24 Hours (Table) 07/29/24 Range/Units 16:15 Albumin 3.4 L (3.5-5.0) g/dL Thrombosis Risk Factor Assmnt - Choose All That Apply Any of the Below Risk Factors Present?: Yes Each Factor Represents 1 point: Obesity (BMI >25), Varicose veins Each Risk Factor Represents 2 Points: Age 61-74 years, Malignancy Thrombosis Risk Factor Assessment Total Risk Factor Score: 6 Thrombosis Risk Factor Assessment Level: High Risk
--- NOTE | 2024-07-29 23:10 | P.CONS ---
History of Present Illness - Reason for Consult Consult date: 07/29/24 Breast infection Requesting physician: Lucas Lima - Chief Complaint Right breast pain and swelling x days - History of Present Illness Patient is a 68-year-old female with a past medical history difficult for hypertension, hyperlipidemia anxiety sleep apnea and recently did have a diagnosis of breast cancer in this patient who is status post bilateral lumpe ctomy done on November 02, 2024 right breast biopsy did shows DCIS and an area of invasive ductal carcinoma negative margins and the patient was supposed to be given radiation treatment patient has been evaluated by the surgeon on July 25 for right breast swelling and redness along with some discomfort apparently the patient did have some fluid drained and the patient has been treated with oral Keflex on a reevaluation today the patient was noticed to have increasing swelling and redness to the right breast area concerning for cellulitis. Patient was advised to go to the hospital patient denies high-grade fever or any chills she been complaining of discomfort to the right breast area mostly dull aching mild intensity without radiation with associated swelling numbness but no drainage denies any nausea vomiting no abdominal pain only diarrhea on presentation the hospital patient was afebrile no fever have been called subsequently patient was not tachycardic hypotensive or hypoxic she did have a white count of 8.3 creatinine 0.57 electrolytes are normal liver enzymes are normal Review of Systems Positive point and negatives has been mentioned in the HPI, complete review of systems was performed and all other systems are negative Past Medical History Past Medical History: Hypertension Additional Past Medical History / Comment(s): hx frequent UTI's, seasonal allergies, palpitations, hemorrhoids History of Any Multi-Drug Resistant Organisms: None Reported Past Surgical History: Breast Surgery Additional Past Surgical History / Comment(s): bilateral lumpectomy Past Anesthesia/Blood Transfusion Reactions: No Reported Reaction Smoking Status: Former smoker - Past Family History Mother Family Medical History: No Reported History Medications and Allergies Home Medications Medication Instructions Recorded Confirmed Type Magnesium 250 mg PO DAILY 12/20/23 07/29/24 History buPROPion HCL [buPROPion HCL XL] 150 mg PO DAILY 12/20/23 07/29/24 History Ascorbic Acid [Vitamin C] 1,000 mcg PO DAILY 05/29/24 07/29/24 History Aspirin [Adult Low Dose Aspirin EC] 81 mg PO DAILY 05/29/24 07/29/24 History Cholecalciferol [Vitamin D3 (25 25 mcg PO DAILY 05/29/24 07/29/24 History Mcg = 1000 Iu)] Cranberry Fruit Extract [Cranberry] 500 mg PO DAILY 05/29/24 07/29/24 History Cyanocobalamin (Vitamin B-12) 5,000 mcg PO DAILY 05/29/24 07/29/24 History [Vitamin B-12] Loratadine [Claritin] 10 mg PO DAILY 05/29/24 07/29/24 History Rosuvastatin [Crestor] 10 mg PO DAILY 05/29/24 07/29/24 History Ubidecarenone [Co Q-10] 200 mg PO DAILY 05/29/24 07/29/24 History Cephalexin [Keflex] 500 mg PO Q6HR 1 Days #20 cap 07/25/24 07/29/24 Rx Nystatin/Triamcin 1 applic TOPICAL BID #30 gram 07/25/24 07/29/24 Rx [Nystatin-Triamcinolone Cream] Multivit-Min/Iron/Folic/Lutein 1 tab PO DAILY 07/29/24 07/29/24 History [Centrum Silver Women Tablet] lisinopriL [Zestril] 20 mg PO DAILY 07/29/24 07/29/24 History Allergies Allergy/AdvReac Type Severity Reaction Status Date / Time No Known Allergies Allergy Verified 07/29/24 14:38 Physical Exam Vitals: Vital Signs Temp Pulse Resp BP Pulse Ox 07/29/24 13:28 98.0 F 87 18 123/75 99 Intake and Output 07/29/24 07/29/24 07/29/24 06:59 14:59 22:59 Other: Weight 92.2 kg 92.2 kg GENERAL DESCRIPTION: Elderly female lying in bed, no distress. No tachypnea or accessory muscle of respiration use. HEENT: Shows Pallor , no scleral icterus. Oral mucous membrane is dry. No pharyngeal erythema or thrush NECK: Trachea central, no thyromegaly. LUNGS: Unlabored breathing. Clear to auscultation anteriorly. No wheeze or crackle. HEART: S1, S2, regular rate and rhythm. No loud murmur ABDOMEN: Soft, no tenderness , guarding or rigidity, no organomegaly EXTREMITIES: No edema of feet. SKIN: Right breast on the left side did have an area of erythema slightly warmth and tenderness NEUROLOGICAL: The patient is awake, alert, oriented x3, mood and affect normal. Results CBC & Chem 7: 07/29/24 16:15 07/29/24 16:15 Assessment and Plan (1) Abscess of right breast Current Visit: Yes Status: Acute Code(s): N61.1 - ABSCESS OF THE BREAST AND NIPPLE SNOMED Code(s): 79010379 (2) Cellulitis of right breast Current Visit: Yes Status: Acute Code(s): N61.0 - MASTITIS WITHOUT ABSCESS SNOMED Code(s): 39240863 (3) Failure of outpatient treatment Current Visit: Yes Status: Acute Code(s): Z78.9 - OTHER SPECIFIED HEALTH STATUS SNOMED Code(s): 409430091 Plan: 1patient presented to hospital with increasing pain swelling redness to the right breast a in this patient who did have a bilateral lumpectomy and lymph node dissection now presenting with increasing swelling redness concerning for cellulitis failing outpatient oral Keflex therapy 2-we will obtain blood culture ultrasound of the breast and if evidence of fluid collection may benefit from aspiration and culture 3-we will treat empirically with vancomycin while waiting for the workup to be completed Question concern answered We will follow on clinical condition and cultures to further adjust medication if needed Thank you for this consultation we will follow the patient along with you Dictation was produced using [employer] dictation software. please excuse any grammatical, word or spelling errors. Time with Patient: Greater than 30
[2024-07-30 05:01] LABS: African American GFR (CKD) >90 (>60 ml/min/1.73 sqM); Anion Gap 8 mmol/L; Blood Urea Nitrogen 9 mg/dL (7-17); C Reactive Protein 5.4 mg/dL (<1.0); Calcium 8.9 mg/dL (8.4-10.2); Carbon Dioxide 26 mmol/L (22-30); Chloride 107 mmol/L (98-107); Glucose 99 mg/dL (74-99); Non-African American GFR(CKD) >90 (>60 ml/min/1.73 sqM); Sodium 141 mmol/L (137-145)
[2024-07-30 05:47] LABS: Potassium 3.9 mmol/L (3.5-5.1)
[2024-07-30 08:47] LABS: Basophils # (A) 0.06 X 10*3/uL (0.00-0.10); Basophils % (A) 0.6 %; Eosinophils # (A) 0.27 X 10*3/uL (0.04-0.35); Eosinophils % (A) 2.6 %; HCT 35.1 % (37.2-46.3); HGB 11.1 g/dL (12.0-15.0); Lymphocytes # (A) 3.48 X 10*3/uL (0.90-5.00); Lymphocytes % (A) 33.8 %; MCH 29.4 pg (27.0-32.0); MCHC 31.6 g/dL (32.0-37.0); MCV 92.9 FL (80.0-97.0); Mean Platelet Volume 9.7 FL (9.5-12.2); Monocytes # (A) 0.77 X 10*3/uL (0.20-1.00); Monocytes % (A) 7.5 %; NRBC Per 100 WBC 0 X 10*3/uL (0.00-0.01); Neutrophils # (A) 5.68 X 10*3/uL (1.80-7.70); Platelet Count 376 X 10*3/uL (140-440); RBC 3.78 X 10*6/uL (4.10-5.20); RDW 12.7 % (11.5-14.5); WBC 10.31 X 10*3/uL (4.50-10.00)
[2024-07-30] MEDS: CHOLECALCIFEROL 25 MCG (1000 IU) TABLET PO SCH (08:48)
[2024-07-30] MEDS: buPROPion XL 150 MG TAB.ER.24H PO SCH (08:48)
[2024-07-30] MEDS: MULTIVITAMINS, THERA 1 EACH TAB PO SCH (08:48)
[2024-07-30] MEDS: MAGNESIUM OXIDE 400 MG TAB PO SCH (08:48)
[2024-07-30] MEDS: ASPIRIN 81 MG PO SCH (08:48)
[2024-07-30] MEDS: CYANOCOBALAMIN 500 MCG TAB PO SCH (08:48)
[2024-07-30] MEDS: lisinopriL 20 MG TAB PO SCH (08:48)
[2024-07-30] MEDS: ASCORBIC ACID 500 MG TAB PO SCH (08:48)
[2024-07-30] MEDS: ATORVASTATIN 20 MG TAB PO SCH (08:48)
[2024-07-30] MEDS: ACETAMINOPHEN TAB 325 MG TAB PO PRN (08:49)
--- NOTE | 2024-07-30 10:30 | USB ---
Reason for Exam: Clinical finding. Patient History: Menarche at age 11. First Full-Term at age 31. Late child-bearing (after 30). Postmenopausal. Patient has history of breast feeding. Breast cancer, left, age 68. Breast cancer, right, age 68. 06/04/2024, Lumpectomy on the Right side. 06/04/2024, US breast localization LT on the Left side. 06/04/2024, MG pre op needle loc RT on the Right side. 06/04/2024, Malignant MG pre op loc each addl RT on the right side. 04/25/2024, US biopsy breast add'l VAD RT on the Right side. 04/25/2024, US biopsy breast VAD RT on the Right side. 04/25/2024, Malignant US biopsy breast VAD LT on the left side. Prior Study Comparison: 04/25/2024 Right MG diagnostic mammo RT wo CAD, [facility]. 06/04/2024 Left MG diagnostic mammo LT wo CAD., [facility]. 07/16/2024 Left MG 3D diag mammo w/cad LT, [facility]. Findings: The lower section of the breast of the right breast was scanned. Again noted is the complex collection in right breast 9:00 position no significant change with regards to size. It is likely reflect seroma with underlying infection not excluded. Overall Assessment: Probably benign, BI-RAD 3 Management: Diagnostic Breast Ultrasound of the right breast in 1 month. A clinical breast exam by your physician is recommended on an annual basis and results should be correlated with mammographic findings. This exam should not preclude additional follow-up of suspicious palpable abnormalities. Results were given to the patient verbally at the time of exam. [facility], , 07/30/2024 8:23 AM. Electronically signed and approved by: Olu Chavez M.D. Radiolog[facility]
--- NOTE | 2024-07-30 13:48 | P.PN ---
Subjective Progress Note Date: 07/30/24 Principal diagnosis: Reason for follow-up is right breast seroma versus abscess Patient is a 68-year-old female with a past medical history difficult for hypertension, hyperlipidemia anxiety sleep apnea and recently did have a diagnosis of breast cancer in this patient who is status post bilateral lumpectomy done on November 02, 2024 with a recent right breast aspiration for possible seroma now being admitted to hospital concerning for neutropenia and swelling redness to the right breast and possible cellulitis. On today's evaluation that is 07/30/2024, Patient is afebrile this morning patient denies having any chest pain shortness of breath or cough, the patient i s currently on room air, patient denies any abdominal pain no diarrhea no nausea no vomiting swelling redness of the breast slightly decreased no drainage. Patient did have a CRP of 5.4 white count is 10.31 with some immature white cells ultrasound has been suggestive of complex fluid collection Objective - Vital Signs Vital signs: Vital Signs Temp 98.4 F 07/30/24 07:03 Pulse 80 07/30/24 07:03 Resp 18 07/30/24 07:03 BP 120/74 07/30/24 07:03 Pulse Ox 96 07/30/24 07:03 FiO2 Intake & Output 07/29/24 07/30/24 07/30/24 18:59 06:59 18:59 Intake Total 540 Balance 540 Weight 92.2 kg Intake: Oral 540 Other: Voiding Method Toilet # Voids 1 - Exam GENERAL DESCRIPTION: An elderly female lying in bed in no distress RESPIRATORY SYSTEM: Unlabored breathing , decreased breath sounds at bases HEART: S1 S2 regular rate and rhythm , ABDOMEN: Soft , no tenderness Right breast examined with the nursing staff on the lateral side did have some area of fluctuance and erythema - Labs CBC & Chem 7: 07/30/24 04:18 07/30/24 04:18 Labs: Abnormal Lab Results - Last 24 Hours (Table) 07/29/24 07/30/24 07/30/24 Range/Units 16:15 04:18 04:18 WBC 10.31 H (4.50-10.00) X 10*3/uL RBC 3.78 L (4.10-5.20) X 10*6/uL Hgb 11.1 L (12.0-15.0) g/dL Hct 35.1 L (37.2-46.3) % MCHC 31.6 L (32.0-37.0) g/dL Immature Gran # 0.05 H (0.00-0.04) X 10*3/uL C-Reactive Protein 5.4 H (<1.0) mg/dL Albumin 3.4 L (3.5-5.0) g/dL Assessment and Plan (1) Abscess of right breast Current Visit: Yes Status: Acute Code(s): N61.1 - ABSCESS OF THE BREAST AND NIPPLE SNOMED Code(s): 82493096 (2) Cellulitis of right breast Current Visit: Yes Status: Acute Code(s): N61.0 - MASTITIS WITHOUT ABSCESS SNOMED Code(s): 58582242 (3) Failure of outpatient treatment Current Visit: Yes Status: Acute Code(s): Z78.9 - OTHER SPECIFIED HEALTH STATUS SNOMED Code(s): 564126761 Plan: 1patient presented to hospital with increasing pain swelling redness to the right breast a in this patient who did have a bilateral lumpectomy and lymph node dissection now presenting with increasing swelling redness concerning for cellulitis failing outpatient oral Keflex therapy 2- ultrasound of the breast did show evidence of fluid collection and surgery is planning for for taking the patient for surgical I&D this afternoon culture s hould be obtained 3-patient to continue with vancomycin while waiting for the workup to be completed Question concern answered Dictation was produced using [employer] dictation software. please excuse any grammatical, word or spelling errors. Time with Patient: Less than 30
--- NOTE | 2024-07-30 14:35 | P.PN ---
Subjective Progress Note Date: 07/30/24 Principal diagnosis: Cellulitis/seroma right breast Philly is a 68-year-old female admitted with cellulitis/seroma right breast. She has responded well to vancomycin however has increased swelling at the lumpectomy site on the right. An ultrasound was performed which shows loculated fluid at this site. Radiology did not think that they could drain this adequately. Objective - Vital Signs Vital signs: Vital Signs Temp 98.5 F 07/30/24 12:45 Pulse 80 07/30/24 12:45 Resp 16 07/30/24 12:45 BP 125/75 07/30/24 12:45 Pulse Ox 97 07/30/24 12:45 FiO2 Intake & Output 07/29/24 07/30/24 07/30/24 18:59 06:59 18:59 Intake Total 540 Balance 540 Weight 92.2 kg Intake: Oral 540 Other: Voiding Method Toilet # Voids 1 - Constitutional General appearance: Present: cooperative - EENT Eyes: Present: EOMI ENT: Present: hearing grossly normal - Neck Neck: Present: normal ROM - Integumentary Integumentary Comment(s): Cellulitis right breast inferior medial aspect improved, improved lateral aspect but swelling at the lumpectomy site - Psychiatric Psychiatric: Present: A&O x's 3, appropriate affect, intact judgment & insight - Labs CBC & Chem 7: 07/30/24 04:18 07/30/24 04:18 Labs: Abnormal Lab Results - Last 24 Hours (Table) 07/29/24 07/30/24 07/30/24 Range/Units 16:15 04:18 04:18 WBC 10.31 H (4.50-10.00) X 10*3/uL RBC 3.78 L (4.10-5.20) X 10*6/uL Hgb 11.1 L (12.0-15.0) g/dL Hct 35.1 L (37.2-46.3) % MCHC 31.6 L (32.0-37.0) g/dL Immature Gran # 0.05 H (0.00-0.04) X 10*3/uL C-Reactive Protein 5.4 H (<1.0) mg/dL Albumin 3.4 L (3.5-5.0) g/dL Assessment and Plan Assessment: Impression: Right breast cellulitis/seroma which cannot be aspirated radiographically secondary to loculation Plan: Intraoperative drainage of seroma with breakdown of loculation irrigation of area and placement of a drain The case was discussed with the patient and her . They understand and wish to proceed.
[2024-07-30] MEDS: IV FLUID CONTINUATION 1,000 ML IV ONE (15:02)
[2024-07-30] MEDS: FAMOTIDINE 20 MG/2 ML VIAL IV STA (15:15)
[2024-07-30] MEDS: ONDANSETRON 4 MG/2 ML VIAL IVP PRN (15:16)
[2024-07-30] MEDS: DEXAMETHASONE SOD PHOSPHATE 4 MG/ML 1 ML VIAL IVP STA (15:16)
[2024-07-30] MEDS: SCOPOLAMINE 1 MG/72 HR PATCH TRANSDERM STA (15:17)
[2024-07-30] MEDS ORDERED: LIDOCAINE 1% INJ 10MG/ML (20 ML MDV) ONE (15:56)
[2024-07-30] MEDS ORDERED: fentaNYL (PF) 50 MCG/ML 2 ML AMP ONE (15:56)
[2024-07-30] MEDS ORDERED: SUCCINYLCHOLINE CHLORIDE 200 MG/10 ML VIAL IV ONE (15:56)
[2024-07-30] MEDS ORDERED: PROPOFOL 10 MG/ML 20 ML VIAL IV ONE (15:56)
[2024-07-30] MEDS: LIDOCAINE 1% INJ 10MG/ML (20 ML MDV) SQ ONE (16:19)
--- NOTE | 2024-07-30 17:16 | P.PN ---
Progress Note - Text Progress Note Date: 07/30/24 Chief Complaint: Right breast infection Very pleasant 68-year-old patient, with chronic medical conditions that include hypertension, hyperlipidemia, anxiety, obstructive sleep apnea uses CPAP.. Patient is undergone bilateral lumpectomy by Dr. Laya Bosch. This was done on June 04, 2024. 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 Negative margins. Both radiation and medical oncology was also involved. More details in the surgeon's notes. On July 25 right breast was drained, felt to have a. Not abscess. Patient was discharged on Keflex. Swelling tenderness, pain currently increased. Patient therefore being admitted for having failed outpatient treatment and IV antibiotics. Patient is hard of hearing. A bit forgetful. is helping with the history. Patient denies any fever and chills. Appetite is fair. July 30: Saw the patient this morning. Feels slight improvement. Though wharf tender head. Ultrasound showing a seroma. Surgeon Dr. Laya Bosch called me this afternoon. Will take the patient to the OR. Patient on IV vancomycin. was at the bedside. The Active Medications Acetaminophen (Acetaminophen Tab 325 Mg Tab) 650 mg PO Q6HR PRN PRN Reason: Mild Pain or Fever > 100.5 Last Admin: 07/30/24 08:49 Dose: 650 mg Alprazolam (Alprazolam 0.25 Mg Tab) 0.25 mg PO Q6HR PRN PRN Reason: Anxiety Ascorbic Acid (Ascorbic Acid 500 Mg Tab) 1,000 mg PO DAILY [facility] Last Admin: 07/30/24 08:48 Dose: 1,000 mg Aspirin (Aspirin 81 Mg) 81 mg PO DAILY [facility] Last Admin: 07/30/24 08:48 Dose: 81 mg Atorvastatin Calcium (Atorvastatin 20 Mg Tab) 20 mg PO DAILY [facility] Last Admin: 07/30/24 08:48 Dose: 20 mg Bupropion HCl (Bupropion Xl 150 Mg Tab.Er.24h) 150 mg PO DAILY [facility] Last Admin: 07/30/24 08:48 Dose: 150 mg Calcium Carbonate/Glycine (Calcium Carbonate 500 Mg Chewable) 1,000 mg PO Q4HR PRN PRN Reason: Dyspepsia Cholecalciferol (Cholecalciferol 25 Mcg (1000 Iu) Tablet) 25 mcg PO DAILY [facility] Last Admin: 07/30/24 08:48 Dose: 25 mcg Cyanocobalamin (Cyanocobalamin 500 Mcg Tab) 5,000 mcg PO DAILY [facility] Last Admin: 07/30/24 08:48 Dose: 5,000 mcg Enoxaparin Sodium (Enoxaparin 40 Mg/0.4 Ml Syringe) 40 mg SQ DAILY [facility] Last Admin: 07/30/24 08:48 Dose: 40 mg Vancomycin HCl 1,500 mg/ (Sodium Chloride) 500 mls @ 167 mls/hr IVPB Q12H [facility] Last Admin: 07/30/24 06:01 Dose: 167 mls/hr Lactulose (Lactulose 20 Gm/30 Ml Cup) 20 gm PO DAILY PRN PRN Reason: Constipation Lisinopril (Lisinopril 20 Mg Tab) 20 mg PO DAILY [facility] Last Admin: 07/30/24 08:48 Dose: 20 mg Magnesium Oxide (Magnesium Oxide 400 Mg Tab) 400 mg PO DAILY [facility] Last Admin: 07/30/24 08:48 Dose: 400 mg Miscellaneous Information (Vancomycin Trough Due 1 Each Misc) 0 each MISCELLANE DIRECTED ONE Stop: 07/31/24 05:01 Multivitamins (Multivitamins, Thera 1 Each Tab) 1 each PO DAILY [facility] Last Admin: 07/30/24 08:48 Dose: 1 each Naloxone HCl (Naloxone 0.4 Mg/Ml 1 Ml Vial) 0.2 mg IV Q2M PRN PRN Reason: Opioid Reversal Ondansetron HCl (Ondansetron 4 Mg/2 Ml Vial) 4 mg IVP Q8HR PRN PRN Reason: Nausea And Vomiting Last Admin: 07/30/24 15:16 Dose: 4 mg Temazepam (Temazepam 15 Mg Cap) 15 mg PO HS PRN PRN Reason: Insomnia Social history: . 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 EYES: Pupils equal. Conjunctiva fara l. HEENT: External appearance of nose and ears normal, oral cavity grossly normal. NECK: JVD not raised; masses not palpable. HEART: First and second heart sounds are normal; no edema. LUNGS: Respiratory rate normal; clear to auscultation. ABDOMEN: Soft, nontender, liver spleen not palpable, no masses palpable. PSYCH: Alert and oriented x3; mood and affect fara l. MUSCULOSKELETAL:No Clubbing/cyanosis;muscles-grossly intact NEUROLOGICAL: Cranial nerves grossly intact; no facial asymmetry, power and sensation grossly intact. Right breast: [On day 1] examined in presence of nurse Prudence area of hardness on the right breast. Some tenderness. Extending into the axilla. No obvious fluctuance. INVESTIGATIONS, reviewed in the clinical context: July 30: White count 10.3 hemoglobin 11.1 platelets 376 potassium 3.9 creatinine 0.58. Procalcitonin 0.03 July 29, 2024: White count 8.3 hemoglobin 11.6 platelets 337 sodium 140 potassium 3.9 creatinine 0.57 Assessment plan: -Acute right breast cellulitis, with underlying fluid collection. It was attempted to be drained outpatient today with no fluid output. Patient has been on Keflex for last 4 to 5 days. Has failed outpatient treatment.: Slow to respond IV vancomycin. ID following K-pad for locally treatment.. Patient to be taken to the OR today by Dr. Laya Bosch -Right breast seroma per ultrasound For drainage today -Essential hypertension Zestril 20 mg a day -Hyperlipidemia Crestor 10 mg a day -Anxiety Bupropion 150 mg a day -Chronic urine incontinence -Obstructive sleep apnea, uses CPAP at home continue the same Discussed with patient . This morning. And with Dr. Laya Bosch Past Medical History Past Medical History: Hypertension Additional Past Medical History / Comment(s): hx frequent UTI's, seasonal allergies, palpitations, hemorrhoids History of Any Multi-Drug Resistant Organisms: None Reported Past Surgical History: Breast Surgery Additional Past Surgical History / Comment(s): bilateral lumpectomy Past Anesthesia/Blood Transfusion Reactions: No Reported Reaction Smoking Status: Former smoker
--- NOTE | 2024-07-30 17:21 | P.BCAON ---
Date of Procedure: 07/30/24 Preoperative Diagnosis: Right breast loculated seroma Postoperative Diagnosis: Right breast fat necrosis Procedure(s) Performed: Debridement of right breast lumpectomy site/ drainage of seroma Anesthesia: ARCADIO Surgeon: Noy Johnson Estimated Blood Loss (ml): 15 IV fluids (ml): 400 Pathology: other (Debrided tissue lumpectomy site) Condition: stable Disposition: floor Indications for Procedure: Increased swelling right breast cellulitis right breast Operative Findings: Necrotic tissue and lumpectomy cavity Description of Procedure: The patient was brought to the operative suite and following induction of anesthesia the right breast was prepped and draped in a sterile fashion. Using the prior lumpectomy site the incision was entered which was at this time well- healed. Upon entering the prior lumpectomy site there appeared to be necrotic tissue consistent with fat necrosis. This was extruded. The wound was well irrigated. The lining of the cavity itself which was approximately 7 x 4 cm appeared to be thickened granulated tissue. This was debrided. There appeared to be seroma like fluid in the surrounding tissues. These were open but the tissues were all loculated with serous fluid. Cultures were obtained aerobic and anaerobic. The wound was well irrigated. The wound was packed. Several interrupted nylon sutures were placed in the incision. It was packed using a m oist Kerlix. The erythema had decreased by the end of the case. The firmness had decreased by the end of the case. The patient tolerated the procedure in stable condition.
[2024-07-30] MEDS ORDERED: HYDROcodone/APAP 5-325MG 1 EACH TAB PO PRN (17:24)
[2024-07-30] MEDS ORDERED: HYDROmorphone 0.5 MG/0.5 ML SYRINGE IVP PRN (17:48)
[2024-07-31] MEDS: VANCOMYCIN TROUGH DUE 1 EACH MISC MISCELLANE ONE (05:45)
[2024-07-31 06:11] LABS: African American GFR (CKD) >90 (>60 ml/min/1.73 sqM); Non-African American GFR(CKD) >90 (>60 ml/min/1.73 sqM)
--- NOTE | 2024-07-31 07:45 | P.PN ---
Subjective Progress Note Date: 07/31/24 Principal diagnosis: Postop day #1 debridement of necrotic tissue right breast August is postop day #1 debridement necrotic tissue right breast. She was taken to the operating room yesterday for what was thought to be an incision and drainage of a seroma/possible abscess. However at the time of surgery what was noted was necrotic tissue in the lumpectomy site. This was debrided. Today she is doing well. She is tolerating diet without difficulty. She is afebrile. Objective - Vital Signs Vital signs: Vital Signs Temp 97.8 F 07/31/24 07:00 Pulse 80 07/31/24 07:00 Resp 18 07/31/24 07:00 BP 155/64 07/31/24 07:00 Pulse Ox 98 07/31/24 07:00 FiO2 Intake & Output 07/30/24 07/31/24 07/31/24 18:59 06:59 18:59 Intake Total 1160 240 Output Total 15 Balance 1145 240 Intake: IV 500 Oral 660 240 Output: Estimated Blood Loss 15 Other: Voiding Method Toilet - Constitutional General appearance: Present: cooperative - EENT Eyes: Present: EOMI ENT: Present: hearing grossly normal - Neck Neck: Present: normal ROM - Respiratory Details: slight Wheezing right lung base - Cardiovascular Heart sounds: normal: S1, S2 - Integumentary Integumentary Comment(s): Decreased erythema at lumpectomy site - Psychiatric Psychiatric: Present: A&O x's 3, appropriate affect, intact judgment & insight - Labs CBC & Chem 7: 07/30/24 04:18 07/31/24 05:41 Labs: Abnormal Lab Results - Last 24 Hours (Table) 07/30/24 Range/Units 04:18 WBC 10.31 H (4.50-10.00) X 10*3/uL RBC 3.78 L (4.10-5.20) X 10*6/uL Hgb 11.1 L (12.0-15.0) g/dL Hct 35.1 L (37.2-46.3) % MCHC 31.6 L (32.0-37.0) g/dL Immature Gran # 0.05 H (0.00-0.04) X 10*3/uL Microbiology - Last 24 Hours (Table) 07/30/24 17:18 Gram Stain - Preliminary Breast - Right 07/30/24 17:18 Gram Stain - Preliminary Breast - Right 07/29/24 18:45 Blood Culture - Preliminary Blood Assessment and Plan Assessment: Impression: Postop day #1 debridement necrotic tissue lumpectomy site Plan: Packing to be changed Continue antibiotic therapy Await cultures Await CBC Following consent the packing at the lumpectomy site was removed. This was replaced with moist Kerlix. The patient tolerated this without difficulty. There was minimal drainage.
[2024-07-31 08:34] LABS: Basophils # (A) 0.04 X 10*3/uL (0.00-0.10); Basophils % (A) 0.3 %; Eosinophils # (A) 0.02 X 10*3/uL (0.04-0.35); Eosinophils % (A) 0.2 %; HCT 33.9 % (37.2-46.3); HGB 10.8 g/dL (12.0-15.0); Lymphocytes # (A) 1.62 X 10*3/uL (0.90-5.00); Lymphocytes % (A) 13.2 %; MCH 29.6 pg (27.0-32.0); MCHC 31.9 g/dL (32.0-37.0); MCV 92.9 FL (80.0-97.0); Mean Platelet Volume 9.5 FL (9.5-12.2); Monocytes # (A) 0.61 X 10*3/uL (0.20-1.00); NRBC Per 100 WBC 0 X 10*3/uL (0.00-0.01); Neutrophils # (A) 9.94 X 10*3/uL (1.80-7.70); Neutrophils % (A) 80.7 %; Platelet Count 390 X 10*3/uL (140-440); RBC 3.65 X 10*6/uL (4.10-5.20); RDW 12.3 % (11.5-14.5)
--- NOTE | 2024-07-31 10:16 | CDI ---
Documentation Clarification Form Date: 07/31/2024 09:55:15 AM From: Chata Mendes RN CCDS Phone: [phone] Admit Date: 07/29/2024 01:15:00 PM Patient Name: Philly Mack Visit Number: [id number] Discharge Date: ATTENTION: The Clinical Documentation Specialists (CDI) and [facility] Coding Staff appreciate your assistance in clarifying documentation. Please respond to the clarification below the line at the bottom and electronically sign. The CDI & [facility] Coding staff will review the response and follow-up if needed. Please note: Queries are made part of the Legal Health Record. If you have any questions, please contact the author of this message via ITS. Doctor: Noy Schultz debridement is documented on 07/30/2024. Unfortunately, some required elements have not been documented. Additional clarification regarding the procedure is requested. History/Risk Factors: 68 year female presents for Right breast seroma evaluation and treatment.. The patient underwent a bilateral lumpectomy 07/05/2024, pathology results DCIS and an area of also invasive ductal carcinoma. Medical history: HTN, HLD, Anxiety, JOSE F and Chronic urine incontinence. 07/29, HP. Clinical Indicators: Upon entering the prior lumpectomy site there appeared to be necrotic tissue consistent with fat necrosis.This was extruded. The wound was well irrigated. The lining of the cavity itself which was approximately 7 x 4 cm appeared to be thickened granulated tissue.This was debrided. Treatment: Debrided, irrigated and packed the wound. Please clarify the procedure performed: Debridement of right breast lumpectomy site/ drainage of seroma [ ] Excisional debridement (the removal of necrotic, devitalized tissue or slough by means of cutting away of tissue) Instrument: _scalpel/bovie/harmonic scaple, excisional cutting away and curette Nature of the tissue ___necrotic, nonviable tissue [ ] Non-excisional debridement (the removal of necrotic, devitalized tissue or slough by means of flushing, brushing, or washing. (Irrigation) Instrument: _irrigatioin Nature of the tissue ____necrotic [ ] Other; please specify __depth of debridement to muscle, through the skin and subq tissue, size 7 by 4 cm Five elements required for accurate and compliant documentation of a debridement: -Technique used (e.g., excisional, excised, cutting, brushing, jet lavage etc.) -Instrument(s) used (e.g., scalpel, curette, etc.) -Nature of the tissue removed (e.g., necrotic, devitalized tissues, non-viable tissue, etc.) -Appearance and size of the wound (e.g., down to fresh bleeding tissue, 7cm x 10cm, etc.) -Depth of the debridement* (e.g., skin, subcutaneous tissue, fascia, muscle, bone, etc.) (Template Last Revised: January 2024) MTDD
--- NOTE | 2024-07-31 12:59 | P.PN ---
Subjective Progress Note Date: 07/31/24 Principal diagnosis: Reason for follow-up is right breast seroma versus abscess Patient is a 68-year-old female with a past medical history difficult for hypertension, hyperlipidemia anxiety sleep apnea and recently did have a diagnosis of breast cancer in this patient who is status post bilateral lumpectomy done on November 02, 2024 with a recent right breast aspiration for possible seroma now being admitted to hospital concerning for neutropenia and swelling redness to the right breast and possible cellulitis. Patient is status post debridement of necrotic tissue right breast as well as drainage of seroma questionable abscess procedure completed on 07/30/2024. On today's evaluation that is 07/31/2024,the patient denies any fever or any chills, patient is breathing comfortably on room air, the patient denies chest pain shortness of breath and no significant cough, patient denies abdominal pain, no nausea vomiting or diarrhea. Pain to the right breast has decreased in intensity. Patient white count is 12.30, creatinine 0.54 cultures currently pending Objective - Vital Signs Vital signs: Vital Signs Temp 98 F 07/31/24 12:12 Pulse 81 07/31/24 12:12 Resp 18 07/31/24 12:12 BP 134/71 07/31/24 12:12 Pulse Ox 97 07/31/24 12:12 FiO2 Intake & Output 07/30/24 07/31/24 07/31/24 18:59 06:59 18:59 Intake Total 1160 240 Output Total 15 Balance 1145 240 Intake: IV 500 Oral 660 240 Output: Estimated Blood Loss 15 Other: Voiding Method Toilet - Exam GENERAL DESCRIPTION: An elderly female lying in bed in no distress RESPIRATORY SYSTEM: Unlabored breathing , decreased breath sounds at bases HEART: S1 S2 regular rate and rhythm , ABDOMEN: Soft , no tenderness Right breast examined with the nursing staff on the lateral side did have some area of fluctuance and erythema - Labs CBC & Chem 7: 07/31/24 05:41 07/31/24 05:41 Labs: Abnormal Lab Results - Last 24 Hours (Table) 07/31/24 Range/Units 05:41 WBC 12.30 H (4.50-10.00) X 10*3/uL RBC 3.65 L (4.10-5.20) X 10*6/uL Hgb 10.8 L (12.0-15.0) g/dL Hct 33.9 L (37.2-46.3) % MCHC 31.9 L (32.0-37.0) g/dL Immature Gran # 0.07 H (0.00-0.04) X 10*3/uL Neutrophils # 9.94 H (1.80-7.70) X 10*3/uL Eosinophils # 0.02 L (0.04-0.35) X 10*3/uL Microbiology - Last 24 Hours (Table) 07/30/24 17:18 Gram Stain - Preliminary Breast - Right 07/30/24 17:18 Gram Stain - Preliminary Breast - Right 07/29/24 18:45 Blood Culture - Preliminary Blood Assessment and Plan (1) Abscess of right breast Current Visit: Yes Status: Acute Code(s): N61.1 - ABSCESS OF THE BREAST AND NIPPLE SNOMED Code(s): 42425439 (2) Cellulitis of right breast Current Visit: Yes Status: Acute Code(s): N61.0 - MASTITIS WITHOUT ABSCESS SNOMED Code(s): 99007592 (3) Failure of outpatient treatment Current Visit: Yes Status: Acute Code(s): Z78.9 - OTHER SPECIFIED HEALTH STATUS SNOMED Code(s): 371516951 Plan: 1patient presented to hospital with increasing pain swelling redness to the r ight breast a in this patient who did have a bilateral lumpectomy and lymph node dissection now presenting with increasing swelling redness concerning for cellulitis failing outpatient oral Keflex therapy 2- ultrasound of the breast did show evidence of fluid collection and surgery is planning for for taking the patient for surgical I&D this afternoon culture should be obtained 3-patient is status post debridement of the right breast necrotic tissue and drainage of the fluid cultures we will follow continue with the vancomycin question answered Dictation was produced using [employer] dictation software. please excuse any grammatical, word or spelling errors. Time with Patient: Less than 30
--- NOTE | 2024-07-31 18:47 | P.PN ---
Progress Note - Text Progress Note Date: 07/31/24 Chief Complaint: Right breast infection Very pleasant 68-year-old patient, with chronic medical conditions that include hypertension, hyperlipidemia, anxiety, obstructive sleep apnea uses CPAP.. Patient is undergone bilateral lumpectomy by Dr. Laya Bosch. This was done on June 04, 2024. 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 Negative margins. Both radiation and medical oncology was also involved. More details in the surgeon's notes. On July 25 right breast was drained, felt to have a. Not abscess. Patient was discharged on Keflex. Swelling tenderness, pain currently increased. Patient therefore being admitted for having failed outpatient treatment and IV antibiotics. Patient is hard of hearing. A bit forgetful. is helping with the history. Patient denies any fever and chills. Appetite is fair. July 30: Saw the patient this morning. Feels slight improvement. Though hatch tender. Ultrasound showing a seroma. Surgeon Dr. Laya Bosch called me this afternoon. Will take the patient to the OR. Patient on IV vancomycin. was at the bedside. July 31: Resting in bed. Spoke to Dr. Laya Bosch. Dressing change was done. Wound care consulted. Redness is come down. Continue IV vancomycin for 24 hours. Hopefully can be discharged tomorrow. Increase activity in the hallway. Eating well. Tam Dr. Lyaa Bosch. Mainly necrotic tissue inside. Not much infection Active Medications Acetaminophen (Acetaminophen Tab 325 Mg Tab) 650 mg PO Q6HR PRN PRN Reason: Mild Pain or Fever > 100.5 Last Admin: 07/31/24 15:45 Dose: 650 mg Hydrocodone Bitart/Acetaminophen (Hydrocodone/Apap 5-325mg 1 Each Tab) 1 each PO Q6HR PRN PRN Reason: Pain Alprazolam (Alprazolam 0.25 Mg Tab) 0.25 mg PO Q6HR PRN PRN Reason: Anxiety Ascorbic Acid (Ascorbic Acid 500 Mg Tab) 1,000 mg PO DAILY [facility] Last Admin: 07/31/24 09:22 Dose: 1,000 mg Aspirin (Aspirin 81 Mg) 81 mg PO DAILY [facility] Last Admin: 07/31/24 09:21 Dose: 81 mg Atorvastatin Calcium (Atorvastatin 20 Mg Tab) 20 mg PO DAILY [facility] Last Admin: 07/31/24 09:22 Dose: 20 mg Bupropion HCl (Bupropion Xl 150 Mg Tab.Er.24h) 150 mg PO DAILY [facility] Last Admin: 07/31/24 09:21 Dose: 150 mg Calcium Carbonate/Glycine (Calcium Carbonate 500 Mg Chewable) 1,000 mg PO Q4HR PRN PRN Reason: Dyspepsia Cholecalciferol (Cholecalciferol 25 Mcg (1000 Iu) Tablet) 25 mcg PO DAILY [facility] Last Admin: 07/31/24 09:22 Dose: 25 mcg Cyanocobalamin (Cyanocobalamin 500 Mcg Tab) 1,000 mcg PO DAILY [facility] Enoxaparin Sodium (Enoxaparin 40 Mg/0.4 Ml Syringe) 40 mg SQ DAILY [facility] Last Admin: 07/31/24 09:21 Dose: 40 mg Vancomycin HCl 1,500 mg/ (Sodium Chloride) 500 mls @ 167 mls/hr IVPB Q12H [facility] Last Admin: 07/31/24 18:45 Dose: 167 mls/hr Lactulose (Lactulose 20 Gm/30 Ml Cup) 20 gm PO DAILY PRN PRN Reason: Constipation Lisinopril (Lisinopril 20 Mg Tab) 20 mg PO DAILY [facility] Last Admin: 07/31/24 09:22 Dose: 20 mg Magnesium Oxide (Magnesium Oxide 400 Mg Tab) 400 mg PO DAILY [facility] Last Admin: 07/31/24 09:22 Dose: 400 mg Multivitamins (Multivitamins, Thera 1 Each Tab) 1 each PO DAILY [facility] Last Admin: 07/31/24 09:22 Dose: 1 each Naloxone HCl (Naloxone 0.4 Mg/Ml 1 Ml Vial) 0.2 mg IV Q2M PRN PRN Reason: Opioid Reversal Ondansetron HCl (Ondansetron 4 Mg/2 Ml Vial) 4 mg IVP Q8HR PRN PRN Reason: Nausea And Vomiting Last Admin: 07/30/24 15:16 Dose: 4 mg Temazepam (Temazepam 15 Mg Cap) 15 mg PO HS PRN PRN Reason: Insomnia Social history: . 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 Conjunctiva fara l. HEENT: External appearance of nose and ears normal, oral cavity grossly normal. NECK: JVD not raised; masses not palpable. HEART: First and second heart sounds are normal; no edema. LUNGS: Respiratory rate normal; clear to auscultation. ABDOMEN: Soft, nontender, liver spleen not palpable, no masses palpable. PSYCH: Alert and oriented x3; mood and affect fara l. MUSCULOSKELETAL:No Clubbing/cyanosis;muscles-grossly intact NEUROLOGICAL: Cranial nerves grossly intact; no facial asymmetry, power and sensation grossly intact. Right breast: [On day 1] examined in presence of nurse Prudence area of hardness on the right breast. Some tenderness. Extending into the axilla. No obvious fluctuance. INVESTIGATIONS, reviewed in the clinical context: July 31: White count 12.3 hemoglobin 10.8 platelets 12.3 creatinine 0.54 July 30: White count 10.3 hemoglobin 11.1 platelets 376 potassium 3.9 creatinine 0.58. Procalcitonin 0.03 July 29, 2024: White count 8.3 hemoglobin 11.6 platelets 337 sodium 140 potassium 3.9 creatinine 0.57 Assessment plan: -Acute right breast cellulitis, with underlying fluid collection. It was attempted to be drained outpatient today with no fluid output. Patient has been on Keflex for last 4 to 5 days. Has failed outpatient treatment.: Improving IV vancomycin. ID following K-pad for locally treatment.. Patient taken to the OR on July 31. Mainly necrotic tissue was obtained. -Right breast seroma per ultrasound That is post drainage -Essential hypertension Zestril 20 mg a day -Hyperlipidemia Crestor 10 mg a day -Anxiety Bupropion 150 mg a day -Chronic urine incontinence -Obstructive sleep apnea, uses CPAP at home continue the same Increase activity. Wound care consulted. Hopefully discharge tomorrow. Past Medical History Past Medical History: Hypertension Additional Past Medical History / Comment(s): hx frequent UTI's, seasonal allergies, palpitations, hemorrhoids History of Any Multi-Drug Resistant Organisms: None Reported Past Surgical History: Breast Surgery Additional Past Surgical History / Comment(s): bilateral lumpectomy Past Anesthesia/Blood Transfusion Reactions: No Reported Reaction Smoking Status: Former smoker
[2024-08-01 04:39] LABS: African American GFR (CKD) >90 (>60 ml/min/1.73 sqM); Non-African American GFR(CKD) >90 (>60 ml/min/1.73 sqM)
[2024-08-01] MEDS: CYANOCOBALAMIN 500 MCG TAB PO SCH (09:22)
--- NOTE | 2024-08-01 10:48 | P.CONS ---
History of Present Illness - Reason for Consult Consult date: 08/01/24 - History of Present Illness This is a 68-year-old patient with history of breast cancer. Patient developed a ulceration with serous drainage to the site. Patient underwent an I&D and debridement to the lateral aspect of the right breast. At this time they are utilizing wet Kerlix for dressing changes twice a day. Patient has been followed with Dr. Ronak Bosch. Patient was scheduled to start radiation within the next few days. Review Of Systems: Constitutional: No fever, no chills, no night sweats. No weight change. No weakness, fatigue or lethargy. No daytime sleepiness. Integumentary:reports wounds, no lesions. No rash or pruritus. No unusual bruising. No change in hair or nails. Physical exam: General Appearance: Alert, cooperative, no distress, appears stated age. Skin: See HPI all other Skin color, texture, tugor normal, no rashes or lesions. Neurologic: Alert oriented x3 Assessment: 1. Nonhealing ulceration of other site with fat layer exposed Plan: 1. We will continue with Kerlix wet dressing changes twice a day as per Dr. Johnson order. If Dr. Johnson would like a different recommendation for dressing change I would recommend absorptive silver rope change 3 times a day. Apply absorptive silver rope saline moistened gauze dry gauze me secure with tape or utilize binder. Thank you for the consultation any questions please contact the wound care center DNP note has been reviewed and discussed with Dr. Chicas and the impression and plan of care has been directed as dictated. Past Medical History Past Medical History: Hypertension Additional Past Medical History / Comment(s): hx frequent UTI's, seasonal allergies, palpitations, hemorrhoids History of Any Multi-Drug Resistant Organisms: None Reported Past Surgical History: Breast Surgery Additional Past Surgical History / Comment(s): bilateral lumpectomy Past Anesthesia/Blood Transfusion Reactions: No Reported Reaction Smoking Status: Former smoker - Past Family History Mother Family Medical History: No Reported History Medications and Allergies Home Medications Medication Instructions Recorded Confirmed Type Magnesium 250 mg PO DAILY 12/20/23 07/29/24 History buPROPion HCL [buPROPion HCL XL] 150 mg PO DAILY 12/20/23 07/29/24 History Ascorbic Acid [Vitamin C] 1,000 mcg PO DAILY 05/29/24 07/29/24 History Aspirin [Adult Low Dose Aspirin EC] 81 mg PO DAILY 05/29/24 07/29/24 History Cholecalciferol [Vitamin D3 (25 25 mcg PO DAILY 05/29/24 07/29/24 History Mcg = 1000 Iu)] Cranberry Fruit Extract [Cranberry] 500 mg PO DAILY 05/29/24 07/29/24 History Cyanocobalamin (Vitamin B-12) 5,000 mcg PO DAILY 05/29/24 07/29/24 History [Vitamin B-12] Loratadine [Claritin] 10 mg PO DAILY 05/29/24 07/29/24 History Rosuvastatin [Crestor] 10 mg PO DAILY 05/29/24 07/29/24 History Ubidecarenone [Co Q-10] 200 mg PO DAILY 05/29/24 07/29/24 History Cephalexin [Keflex] 500 mg PO Q6HR 1 Days #20 cap 07/25/24 07/29/24 Rx Nystatin/Triamcin 1 applic TOPICAL BID #30 gram 07/25/24 07/29/24 Rx [Nystatin-Triamcinolone Cream] Multivit-Min/Iron/Folic/Lutein 1 tab PO DAILY 07/29/24 07/29/24 History [Centrum Silver Women Tablet] lisinopriL [Zestril] 20 mg PO DAILY 07/29/24 07/29/24 History Allergies Allergy/AdvReac Type Severity Reaction Status Date / Time No Known Allergies Allergy Verified 07/29/24 14:38 Physical Exam Vitals: Vital Signs Temp Pulse Resp BP BP Pulse Ox 08/01/24 07:46 97.8 F 87 16 142/75 96 08/01/24 01:06 98.5 F 89 143/66 97 07/31/24 19:09 98.1 F 80 18 144/70 99 07/31/24 12:12 98 F 81 18 134/71 97 Intake and Output 07/31/24 08/01/24 08/01/24 22:59 06:59 14:59 Intake Total 500 480 Balance 500 480 Intake: Intake, IV Titration 500 Amount Vancomycin 1,500 mg In 500 Sodium Chloride 0.9% 500 ml 500 ml @ 167 mls/hr IVPB Q12H [facility] Rx#: [id number] Oral 480 Other: Voiding Method Toilet Toilet # Voids 1 Results CBC & Chem 7: 07/31/24 05:41 08/01/24 03:45 Labs: Microbiology - Last 24 Hours (Table) 07/29/24 18:45 Blood Culture - Preliminary Blood 07/30/24 17:18 Gram Stain - Preliminary Breast - Right Wound Culture - Preliminary Enterococcus faecalis Assessment and Plan (1) Non-pressure chronic ulcer of skin of other sites with fat layer exposed Current Visit: Yes Status: Acute Code(s): L98.492 - NON-PRS CHRONIC ULCER OF SKIN OF SITES W FAT LAYER EXPOSED SNOMED Code(s): 78842815 (2) Abscess of right breast Current Visit: Yes Status: Acute Code(s): N61.1 - ABSCESS OF THE BREAST AND NIPPLE SNOMED Code(s): 83782373
--- NOTE | 2024-08-01 15:30 | P.PN ---
Subjective Progress Note Date: 08/01/24 Principal diagnosis: Reason for follow-up is right breast seroma versus abscess Patient is a 68-year-old female with a past medical history difficult for hypertension, hyperlipidemia anxiety sleep apnea and recently did have a diagnosis of breast cancer in this patient who is status post bilateral lumpectomy done on November 02, 2024 with a recent right breast aspiration for possible seroma now being admitted to hospital concerning for neutropenia and swelling redness to the right breast and possible cellulitis. Patient is status post debridement of necrotic tissue right breast as well as drainage of seroma questionable abscess procedure completed on 07/30/2024. On today's evaluation that is 08/01/2024,the patient remains to be afebrile, patient is on room air not requiring supplemental oxygen and denies any shortness of breath no chest pain or cough.Patient denies having any nausea or vomiting, no abdominal pain and no diarrhea pain to the right breast has de creased in intensity. Patient did have a creatinine 0.66 cultures are growing Enterococcus faecalis Objective - Vital Signs Vital signs: Vital Signs Temp 97.8 F 08/01/24 07:46 Pulse 87 08/01/24 07:46 Resp 16 08/01/24 07:46 BP 142/75 08/01/24 07:46 Pulse Ox 96 08/01/24 07:46 FiO2 Intake & Output 07/31/24 08/01/24 08/01/24 18:59 06:59 18:59 Intake Total 500 480 Balance 500 480 Intake: Intake, IV Titration 500 Amount Vancomycin 1,500 mg In 500 Sodium Chloride 0.9% 500 ml 500 ml @ 167 mls/hr IVPB Q12H [facility] Rx#: [id number] Oral 480 Other: Voiding Method Toilet Toilet # Voids 1 - Exam GENERAL DESCRIPTION: An elderly female lying in bed in no distress RESPIRATORY SYSTEM: Unlabored breathing , decreased breath sounds at bases HEART: S1 S2 regular rate and rhythm , ABDOMEN: Soft , no tenderness Right breast examined with the nursing staff on the lateral side did have some area of fluctuance and erythema - Labs CBC & Chem 7: 07/31/24 05:41 08/01/24 03:45 Labs: Microbiology - Last 24 Hours (Table) 07/29/24 18:45 Blood Culture - Preliminary Blood 07/30/24 17:18 Gram Stain - Preliminary Breast - Right Wound Culture - Preliminary Enterococcus faecalis Assessment and Plan (1) Abscess of right breast Current Visit: Yes Status: Acute Code(s): N61.1 - ABSCESS OF THE BREAST AND NIPPLE SNOMED Code(s): 75982242 (2) Cellulitis of right breast Current Visit: Yes Status: Acute Code(s): N61.0 - MASTITIS WITHOUT ABSCESS SNOMED Code(s): 69280526 (3) Failure of outpatient treatment Current Visit: Yes Status: Acute Code(s): Z78.9 - OTHER SPECIFIED HEALTH STATUS SNOMED Code(s): 427884951 Plan: 1patient presented to hospital with increasing pain swelling redness to the r ight breast a in this patient who did have a bilateral lumpectomy and lymph node dissection now presenting with increasing swelling redness concerning for cellulitis failing outpatient oral Keflex therapy 2- ultrasound of the breast did show evidence of fluid collection and surgery is planning for for taking the patient for surgical I&D this afternoon culture should be obtained 3-patient is status post debridement of the right breast necrotic tissue and drainage of the fluid cultures which are currently growing Enterococcus faecalis sensitivities pending 4we will continue the vancomycin add Unasyn while waiting for the culture to finalize to determine discharge antibiotics at bedside question answered Dictation was produced using [employer] dictation software. please excuse any gramm atical, word or spelling errors. Time with Patient: Less than 30
[2024-08-01] MEDS: AMPICILLIN-SULBACTAM 3 GM in SODIUM CHLORIDE 0.9% 100 ML IVPB SCH (17:19)
[2024-08-01] MEDS: VANCOMYCIN 1,500 MG in SODIUM CHLORIDE 0.9% 500 ML 500 ML IVPB SCH (18:11)
--- NOTE | 2024-08-01 20:45 | P.PN ---
Progress Note - Text Progress Note Date: 08/01/24 Chief Complaint: Right breast infection Very pleasant 68-year-old patient, with chronic medical conditions that include hypertension, hyperlipidemia, anxiety, obstructive sleep apnea uses CPAP.. Patient is undergone bilateral lumpectomy by Dr. Laya Bosch. This was done on June 04, 2024. 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 Negative margins. Both radiation and medical oncology was also involved. More details in the surgeon's notes. On July 25 right breast was drained, felt to have a. Not abscess. Patient was discharged on Keflex. Swelling tenderness, pain currently increased. Patient therefore being admitted for having failed outpatient treatment and IV antibiotics. Patient is hard of hearing. A bit forgetful. is helping with the history. Patient denies any fever and chills. Appetite is fair. July 30: Saw the patient this morning. Feels slight improvement. 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 Ultrasound showing a seroma. Surgeon Dr. Laya Bosch called me this afternoon. Will take the patient to the OR. Patient on IV vancomycin. was at the bedside. July 31: Resting in bed. Spoke to Dr. Laya Bosch. Dressing change was done. Wound care consulted. Redness is come down. Continue IV vancomycin for 24 hours. Hopefully can be discharged tomorrow. Increase activity in the hallway. Eating well. Tam Dr. Laya Bosch. Mainly necrotic tissue inside. Not much infection August 01: More comfortable. Cultures growing Enterococcus faecalis. Full results pending. Continue vancomycin. IV Unasyn added. ID. Discussed with patient and . Ambulating. Tolerating diet. Active Medications Acetaminophen (Acetaminophen Tab 325 Mg Tab) 650 mg PO Q6HR PRN PRN Reason: Mild Pain or Fever > 100.5 Last Admin: 08/01/24 05:21 Dose: 650 mg Hydrocodone Bitart/Acetaminophen (Hydrocodone/Apap 5-325mg 1 Each Tab) 1 each PO Q6HR PRN PRN Reason: Pain Alprazolam (Alprazolam 0.25 Mg Tab) 0.25 mg PO Q6HR PRN PRN Reason: Anxiety Ascorbic Acid (Ascorbic Acid 500 Mg Tab) 1,000 mg PO DAILY [facility] Last Admin: 08/01/24 09:22 Dose: 1,000 mg Aspirin (Aspirin 81 Mg) 81 mg PO DAILY [facility] Last Admin: 08/01/24 09:22 Dose: 81 mg Atorvastatin Calcium (Atorvastatin 20 Mg Tab) 20 mg PO DAILY [facility] Last Admin: 08/01/24 09:23 Dose: 20 mg Bupropion HCl (Bupropion Xl 150 Mg Tab.Er.24h) 150 mg PO DAILY [facility] Last Admin: 08/01/24 09:23 Dose: 150 mg Calcium Carbonate/Glycine (Calcium Carbonate 500 Mg Chewable) 1,000 mg PO Q4HR PRN PRN Reason: Dyspepsia Cholecalciferol (Cholecalciferol 25 Mcg (1000 Iu) Tablet) 25 mcg PO DAILY [facility] Last Admin: 08/01/24 09:22 Dose: 25 mcg Cyanocobalamin (Cyanocobalamin 500 Mcg Tab) 1,000 mcg PO DAILY [facility] Last Admin: 08/01/24 09:22 Dose: 1,000 mcg Enoxaparin Sodium (Enoxaparin 40 Mg/0.4 Ml Syringe) 40 mg SQ DAILY [facility] Last Admin: 08/01/24 09:23 Dose: 40 mg Ampicillin Sodium/Sulbactam (Sodium 3 gm/ Sodium Chloride) 100 mls @ 200 mls/hr IVPB Q6HR [facility]; Protocol Last Admin: 08/01/24 17:19 Dose: 200 mls/hr Vancomycin HCl 1,500 mg/ (Sodium Chloride) 500 mls @ 167 mls/hr IVPB Q12H [facility] Last Admin: 08/01/24 18:11 Dose: 167 mls/hr Lactulose (Lactulose 20 Gm/30 Ml Cup) 20 gm PO DAILY PRN PRN Reason: Constipation Lisinopril (Lisinopril 20 Mg Tab) 20 mg PO DAILY [facility] Last Admin: 08/01/24 09:22 Dose: 20 mg Magnesium Oxide (Magnesium Oxide 400 Mg Tab) 400 mg PO DAILY [facility] Last Admin: 08/01/24 09:23 Dose: 400 mg Miscellaneous Information (Vancomycin Trough Due 1 Each Misc) 0 each MISCELLANE DIRECTED ONE Stop: 08/02/24 05:01 Multivitamins (Multivitamins, Thera 1 Each Tab) 1 each PO DAILY [facility] Last Admin: 08/01/24 09:23 Dose: 1 each Naloxone HCl (Naloxone 0.4 Mg/Ml 1 Ml Vial) 0.2 mg IV Q2M PRN PRN Reason: Opioid Reversal Ondansetron HCl (Ondansetron 4 Mg/2 Ml Vial) 4 mg IVP Q8HR PRN PRN Reason: Nausea And Vomiting Last Admin: 07/30/24 15:16 Dose: 4 mg Temazepam (Temazepam 15 Mg Cap) 15 mg PO HS PRN PRN Reason: Insomnia 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 Conjunctiva fara l. HEENT: External appearance of nose and ears normal, oral cavity grossly normal. NECK: JVD not raised; masses not palpable. HEART: First and second heart sounds are normal; no edema. LUNGS: Respiratory rate normal; clear to auscultation. ABDOMEN: Soft, nontender, liver spleen not palpable, no masses palpable. PSYCH: Alert and oriented x3; mood and affect fara l. MUSCULOSKELETAL:No Clubbing/cyanosis;muscles-grossly intact NEUROLOGICAL: Cranial nerves grossly intact; no facial asymmetry, power and sensation grossly intact. Right breast: [On day 1] examined in presence of nurse Prudence area of hardness on the right breast. Some tenderness. Extending into the axilla. No obvious fluctuance. INVESTIGATIONS, reviewed in the clinical context: Breast wound culture: Enterococcus faecalis July 31: White count 12.3 hemoglobin 10.8 platelets 12.3 creatinine 0.54 July 30: White count 10.3 hemoglobin 11.1 platelets 376 potassium 3.9 creatinine 0.58. Procalcitonin 0.03 July 29, 2024: White count 8.3 hemoglobin 11.6 platelets 337 sodium 140 potassium 3.9 creatinine 0.57 Assessment plan: -Acute right breast cellulitis, with underlying fluid collection. It was attempted to be drained outpatient today with no fluid output. Patient has been on Keflex for last 4 to 5 days. Has failed outpatient treatment.: Improving IV vancomycin. ID following K-pad for locally treatment.. Patient taken to the OR on July 31. Mainly necrotic tissue was obtained. Tissue culture growing Enterococcus faecalis -Right breast seroma per ultrasound That is post drainage -Essential hypertension Zestril 20 mg a day -Hyperlipidemia Crestor 10 mg a day -Anxiety Bupropion 150 mg a day -Chronic urine incontinence -Obstructive sleep apnea, uses CPAP at home continue the same IV vancomycin. IV Unasyn added by ID. Hopefully tomorrow blood cultures are finalized. Past Medical History Past Medical History: Hypertension Additional Past Medical History / Comment(s): hx frequent UTI's, seasonal allergies, palpitations, hemorrhoids History of Any Multi-Drug Resistant Organisms: None Reported Past Surgical History: Breast Surgery Additional Past Surgical History / Comment(s): bilateral lumpectomy Past Anesthesia/Blood Transfusion Reactions: No Reported Reaction Smoking Status: Former smoker
[2024-08-02] MEDS: VANCOMYCIN TROUGH DUE 1 EACH MISC MISCELLANE ONE (05:12)
[2024-08-02 05:15] LABS: African American GFR (CKD) >90 (>60 ml/min/1.73 sqM); Anion Gap 9 mmol/L; Blood Urea Nitrogen 9 mg/dL (7-17); Carbon Dioxide 25 mmol/L (22-30); Chloride 106 mmol/L (98-107); Glucose 94 mg/dL (74-99); Non-African American GFR(CKD) >90 (>60 ml/min/1.73 sqM); Potassium 3.8 mmol/L (3.5-5.1); Sodium 140 mmol/L (137-145)
[2024-08-02 07:37] VITALS: BP 133/79; PULSE 79; RESP 18; TEMP 98.3
--- NOTE | 2024-08-02 14:39 | P.PN ---
Subjective Progress Note Date: 08/02/24 Principal diagnosis: Reason for follow-up is right breast seroma versus abscess Patient is a 68-year-old female with a past medical history difficult for hypertension, hyperlipidemia anxiety sleep apnea and recently did have a diagnosis of breast cancer in this patient who is status post bilateral lumpectomy done on November 02, 2024 with a recent right breast aspiration for possible seroma now being admitted to hospital concerning for neutropenia and swelling redness to the right breast and possible cellulitis. Patient is status post debridement of necrotic tissue right breast as well as drainage of seroma questionable abscess procedure completed on 07/30/2024. On today's evaluation that is 08/02/2024, the patient continues to be afebrile, the patient is on room air and breathing comfortably, the Pt denies having any chest pain or cough, the patient denies having any abdominal pain no vomiting or any diarrhea pain to the right breast has decreased in intensity. Patient did have a creatinine 0.64 no CBC was done today culture finalized with Enterococcus faecalis sensitive pathogen Objective - Vital Signs Vital signs: Vital Signs Temp 98.3 F 08/02/24 07:22 Pulse 79 08/02/24 07:22 Resp 18 08/02/24 07:22 BP 133/79 08/02/24 07:22 Pulse Ox 98 08/02/24 07:22 FiO2 Intake & Output 08/01/24 08/02/24 08/02/24 18:59 06:59 18:59 Intake Total 1522 Balance 1522 Intake: Oral 1522 Other: Voiding Method Toilet Toilet Toilet # Voids 3 2 1 - Exam GENERAL DESCRIPTION: An elderly female up in the room in no distress RESPIRATORY SYSTEM: Unlabored breathing Right breast swelling redness has decreased no drainage Awake alert oriented x 3 - Labs CBC & Chem 7: 07/31/24 05:41 08/02/24 04:38 Labs: Microbiology - Last 24 Hours (Table) 07/29/24 18:45 Blood Culture - Preliminary Blood 07/30/24 17:18 Gram Stain - Final Breast - Right Wound Culture - Final Enterococcus faecalis 07/30/24 17:18 Anaerobic Culture - Preliminary Breast - Right 07/30/24 17:18 Gram Stain - Preliminary Breast - Right Tissue Culture - Preliminary Enterococcus faecalis Assessment and Plan (1) Abscess of right breast Status: Acute Code(s): N61.1 - ABSCESS OF THE BREAST AND NIPPLE SNOMED Code(s): 09325599 (2) Cellulitis of right breast Status: Acute Code(s): N61.0 - MASTITIS WITHOUT ABSCESS SNOMED Code(s): 7 7900798 (3) Failure of outpatient treatment Status: Acute Code(s): Z78.9 - OTHER SPECIFIED HEALTH STATUS SNOMED Code(s): 604439581 Plan: 1patient presented to hospital with increasing pain swelling redness to the right breast a in this patient who did have a bilateral lumpectomy and lymph node dissection now presenting with increasing swelling redness concerning for cellulitis failing outpatient oral Keflex therapy 2- ultrasound of the breast did show evidence of fluid collection and surgery is planning for for taking the patient for surgical I&D this afternoon culture should be obtained 3-patient is status post debridement of the right breast necrotic tissue and drainage of the fluid cultures which are currently growing Enterococcus faecalis that is penicillin sensitive 4patient to finish therapy with oral Augmentin prescription has been sent to the pharmacy and close outpatient follow-up. Question concern answered Dictation was produced using [employer] dictation software. please excuse any grammatical, word or spelling errors. Time with Patient: Less than 30
--- NOTE | 2024-08-02 20:49 | P.DS ---
Providers Date of admission: 07/29/24 13:15 Expected date of discharge: 08/02/24 Attending physician: Lucas Lima Consults: 07/29/24 15:19 Consult Physician Routine Consulting Provider: Bo Kang Consult Reason/Comments: breast infection Do you want consulting provider notified?: Yes Primary care physician: [facility] Course: Chief Complaint: Right breast infection Very pleasant 68-year-old patient, with chronic medical conditions that include hypertension, hyperlipidemia, anxiety, obstructive sleep apnea uses CPAP.. Patient is undergone bilateral lumpectomy by Dr. Laya Bosch. This was done on June 04, 2024. 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 Negative margins. Both radiation and medical oncology was also involved. More details in the surgeon's notes. On July 25 right breast was drained, felt to have a. Not abscess. Patient was discharged on Keflex. Swelling tenderness, pain currently increased. Patient therefore being admitted for having failed outpatient treatment and IV antibiotics. Patient is hard of hearing. A bit forgetful. is helping with the history. Patient denies any fever and chills. Appetite is fair. July 30: Saw the patient this morning. 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 Ultrasound showing a seroma. Surgeon Dr. Laya Bosch called me this afternoon. Will take the patient to the OR. Patient on IV vancomycin. was at the bedside. July 31: Resting in bed. Spoke to Dr. Laya Bosch. Dressing change was done. Wound care consulted. Redness is come down. Continue IV vancomycin for 24 hours. Hopefully can be discharged tomorrow. Increase activity in the hallway. Eating well. Tam Dr. Laya Bosch. Mainly necrotic tissue inside. Not much infection August 01: More comfortable. Cultures growing Enterococcus faecalis. Full results pending. Continue vancomycin. IV Unasyn added. ID. Discussed with patient and . Ambulating. Tolerating diet. August 02: Cultures are finalized. Per ID patient to be discharged Augmentin. For 10 days. Cleared by ID. Cleared by Dr. Sahra Bosch. Follow-up with her. Care was discussed with the patient and . Questions answered. Tolerating diet. Discussion and discharge planning more than 35 minutes Social history: . 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 Conjunctiva fara l. HEENT: External appearance of nose and ears normal, oral cavity grossly normal. NECK: JVD not raised; masses not palpable. HEART: First and second heart sounds are normal; no edema. LUNGS: Respiratory rate normal; clear to auscultation. ABDOMEN: Soft, nontender, liver spleen not palpable, no masses palpable. PSYCH: Alert and oriented x3; mood and affect fara l. MUSCULOSKELETAL:No Clubbing/cyanosis;muscles-grossly intact NEUROLOGICAL: Cranial nerves grossly intact; no facial asymmetry, power and sensation grossly intact. Right breast: [On day 1] examined in presence of nurse Prudence area of hardness on the right breast. Some tenderness. Extending into the axilla. No obvious fluctuance. INVESTIGATIONS, reviewed in the clinical context: August 02: Potassium 3.8 creatinine 0.61 Breast wound culture: Enterococcus faecalis July 31: White count 12.3 hemoglobin 10.8 platelets 12.3 creatinine 0.54 July 30: White count 10.3 hemoglobin 11.1 platelets 376 potassium 3.9 creatinine 0.58. Procalcitonin 0.03 July 29, 2024: White count 8.3 hemoglobin 11.6 platelets 337 sodium 140 potassium 3.9 creatinine 0.57 Assessment plan: -Acute right breast cellulitis, with underlying fluid collection. It was attempted to be drained outpatient today with no fluid output. Patient has been on Keflex for last 4 to 5 days. Has failed outpatient treatment.: Improving IV vancomycin. ID following K-pad for locally treatment.. Patient taken to the OR on July 31. Mainly necrotic tissue was obtained. Tissue culture growing Enterococcus faecalis Local wound care per Dr. Laya Bosch. Follow-up with her in the office. Discharged on Augmentin for 10 days -Right breast seroma per ultrasound Status post drainage -Essential hypertension Zestril 20 mg a day -Hyperlipidemia Crestor 10 mg a day -Anxiety Bupropion 150 mg a day -Chronic urine incontinence -Obstructive sleep apnea, uses CPAP at home continue the same -Full code Disposition: Home Past Medical History Past Medical History: Hypertension Additional Past Medical History / Comment(s): hx frequent UTI's, seasonal allergies, palpitations, hemorrhoids History of Any Multi-Drug Resistant Organisms: None Reported Past Surgical History: Breast Surgery Additional Past Surgical History / Comment(s): bilateral lumpectomy Past Anesthesia/Blood Transfusion Reactions: No Reported Reaction Smoking Status: Former smoker Plan - Discharge Summary New Discharge Prescriptions: New Amoxic-Pot Clav 875-125Mg [Augmentin 875-125] 1 tab PO Q12HR 10 Days #20 tab Continue buPROPion HCL [buPROPion HCL XL] 150 mg PO DAILY Magnesium 250 mg PO DAILY Cyanocobalamin (Vitamin B-12) [Vitamin B-12] 5,000 mcg PO DAILY Cholecalciferol [Vitamin D3 (25 Mcg = 1000 Iu)] 25 mcg PO DAILY Nystatin/Triamcin [Nystatin-Triamcinolone Cream] 1 applic TOPICAL BID #30 gram Rosuvastatin [Crestor] 10 mg PO DAILY Ascorbic Acid [Vitamin C] 1,000 mcg PO DAILY Aspirin [Adult Low Dose Aspirin EC] 81 mg PO DAILY lisinopriL [Zestril] 20 mg PO DAILY Multivit-Min/Iron/Folic/Lutein [Centrum Silver Women Tablet] 1 tab PO DAILY Discontinued Loratadine [Claritin] 10 mg PO DAILY Cephalexin [Keflex] 500 mg PO Q6HR 1 Days #20 cap No Action Cranberry Fruit Extract [Cranberry] 500 mg PO DAILY Ubidecarenone [Co Q-10] 200 mg PO DAILY Discharge Medication List Magnesium 250 mg PO DAILY 12/20/23 [History] buPROPion HCL [buPROPion HCL XL] 150 mg PO DAILY 12/20/23 [History] Ascorbic Acid [Vitamin C] 1,000 mcg PO DAILY 05/29/24 [History] Aspirin [Adult Low Dose Aspirin EC] 81 mg PO DAILY 05/29/24 [History] Cholecalciferol [Vitamin D3 (25 Mcg = 1000 Iu)] 25 mcg PO DAILY 05/29/24 [History] Cranberry Fruit Extract [Cranberry] 500 mg PO DAILY 05/29/24 [History] Cyanocobalamin (Vitamin B-12) [Vitamin B-12] 5,000 mcg PO DAILY 05/29/24 [History] Rosuvastatin [Crestor] 10 mg PO DAILY 05/29/24 [History] Ubidecarenone [Co Q-10] 200 mg PO DAILY 05/29/24 [History] Nystatin/Triamcin [Nystatin-Triamcinolone Cream] 1 applic TOPICAL BID #30 gram 07/25/24 [Rx] Multivit-Min/Iron/Folic/Lutein [Centrum Silver Women Tablet] 1 tab PO DAILY 07/29/24 [History] lisinopriL [Zestril] 20 mg PO DAILY 07/29/24 [History] Amoxic-Pot Clav 875-125Mg [Augmentin 875-125] 1 tab PO Q12HR 10 Days #20 tab 08/02/24 [Rx] Follow up Appointment(s)/Referral(s): Noy Johnson MD [STAFF PHYSICIAN] - 08/09/24 10:20 am [facility] [NON-STAFF] - As Needed Bo Kang MD [STAFF PHYSICIAN] - 1 Week (please call to make your appointment, office is currently closed.) Patient Instructions/Handouts: Cellulitis (ED), Breast Lumpectomy (DC) Activity/Diet/Wound Care/Special Instructions: Change dressing to right breast with saline moist kerlex/gauze, and cover with dry gauze/abd pad and binder twice daily. Discharge Disposition: HOME WITH HOME HEALTH SERVICES
[2024-08-04] MEDS ORDERED: VANCOMYCIN TROUGH DUE 1 EACH MISC MISCELLANE ONE (05:00)
== END 2024-08-02 13:41 | disposition home health service (06) | DRG 857 ==
LOC: 5NMEDONC 13:15
PROVIDERS: ADMIT Hospitalist; ATTEND Hospitalist
PROC: 0KBH0ZZ Excision of Right Thorax Muscle, Open Approach (ICD-10-PCS; principal; 2024-07-31)
DX: T81.41XA Infection following a procedure, superficial incisional surgical site, initial encounter (principal); L76.34 Postprocedural seroma of skin and subcutaneous tissue following other procedure; B95.2 Enterococcus as the cause of diseases classified elsewhere; I10 Essential (primary) hypertension; L98.492 Non-pressure chronic ulcer of skin of other sites with fat layer exposed; N61.1 Abscess of the breast and nipple; E78.5 Hyperlipidemia, unspecified; F41.9 Anxiety disorder, unspecified; G47.33 Obstructive sleep apnea (adult) (pediatric); Z87.891 Personal history of nicotine dependence; Z87.440 Personal history of urinary (tract) infections; Z79.899 Other long term (current) drug therapy; Z79.82 Long term (current) use of aspirin; R32 Unspecified urinary incontinence; Y84.8 Other medical procedures as the cause of abnormal reaction of the patient, or of later complication, without mention of misadventure at the time of the procedure
CPT/HCPCS: 80048; 80053; 80202; 82565; 84145; 85025; 86140; 87040; 87070; 87075; 87077; 87186; 87205; 88305

== ENCOUNTER → 2024-07-29 | Outpatient (CLI) | payer MEDICARE ==
[2024-07-29 11:36] VITALS: BP 162/89; PULSE 104; RESP 18; TEMP 97.8
--- NOTE | 2024-07-29 12:07 | P.PN ---
Subjective Progress Note Date: 07/29/24 Principal diagnosis: cellulitis right breast Subjective Progress Note Date: 07-29-24 Principal diagnosis: right breast [id number]+Her2-G2 stage IB left breast [id number]+Her2-G2 Stage IA bilateral lumpectomy and SNB, we discussed possible bam-adjuvant therapy and are awaiting oncotype and appointment with medical oncology. Possible metastatic work-up. right breast [id number]+Her2-G2 stage IB left breast [id number]+Her2-G2 Stage IA Genetic testing pending presenting at tumor board with evaluation of right axilla History of Present Illness Consult date: 07-29-24 Reason for Consult: bilateral breast cancer Requesting physician: Chloé Dalton History of present illness: Philly is a 68-year-old female seen in consultation for Dr. Medel regarding biopsy-proven bilateral breast cancer. She underwent a bilateral mammogram on 2223 which led to diagnostic mammograms on 04-24-2024. This revealed a region of calcification at the 10:00 right breast spanning nearly 5.3 cm. An associated density was identified. On the left there was a persistent 5 mm nodule near the 12 o'clock position for which ultrasound was recommended. She underwent bilateral breast ultrasound in 04-24-2024. In the right breast at the 10 o'clock position there was a 1.2 x 1.7 cm density. Additionally there was a prominent lymph node in the right axilla. It showed uniform cortical thickening up to 2.7 mm in tissue sampling was recommended of both of these lesions. In the left breast at the 12 o'clock position there was a 3 x 4 mm lesion for which tissue biopsy was recommended. The patient underwent ultrasound-guided core biopsy in 04-25-2024. 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 The tumors were ER positive VA positive and HER2 negative. This was a routine mammogram she did not feel anything in her breast. Her last mammogram was many years ago. She was not complaining of any nipple discharge or skin changes. About 15 years ago a breast biopsy benign. She had a very bad experience with a physician many years ago and therefore was reluctant to seek medical care. oncotype: two specimens one 19, and one 10 PET scan no mets, ? disease right axillary node; already had a biopsy of right node and it was (-) The patient on 06-04-24 underwent a bilateral lumpectomy. Her cultures from 07-25-24 did not grow any organisms, but multiple PMNs seen. Few normal skin jack. She stated that approximately on 07-23-24 she developed some erythema of the right breast. She was seen in the office on 07 25 24 and 220 cc of straw- colored fluid were aspirated from the right breast cultures were negative. Additionally an ultrasound was performed the same day and minimal fluid was aspirated at the time of the ultrasound although there did appear to be some loculated fluid 11.3 x 7 cm in size. There were some internal septations present. There was some skin thickening measuring up to 6 mm. CBC was performed on the same date and CBC revealed the 10.4, hemoglobin 12.1. She has decreased erythema of the inner medial aspect of the right breast but the area of the lumpectomy site was noted last night to have increased erythema and have increased swelling. She is not complaining of any fever or chills. THis is a new finding. review note medical oncology 05-09-24 review note radiation oncology: 05-20-24 awaiting genetic testing to present at tumor board on May 28 Caffeine: 1 cup/day nicotine: stopped 10 years ago; 1 / PPD chocolate: weekly BCP: about 2 years Family History: father: skin cancer mother: ? Hormonal History: menarche: 11 , age at first : 22, breast fed: Yes menopause: 47 hormones: bioidentical for a short time 1 year or less Surgical history: biopsy of the breast 15 years ago ? side bilateral lumpectomy adn sentinal node biopsy Medical History: HTN Social History: nicotine: as above alcohol: none drugs: none Review of Systems - Constitutional Denies fever, Denies weight loss - EENT Eyes: denies blurred vision Ears: bilateral: decreased hearing, deny: tinnitus Ears, nose, mouth and throat: Denies dysphagia - Breasts bilateral: as per HPI - Cardiovascular Denies chest pain, Denies shortness of breath - Respiratory Denies cough - Gastrointestinal Reports as per HPI - Genitourinary Genitourinary: Denies dysuria, Denies hematuria Menstruation: Reports postmenopausal - Musculoskeletal Reports as per HPI - Integumentary Denies rash, Denies unusual bruising - Neurological Denies headaches, Denies syncope - Psychiatric Reports as per HPI - Endocrine Reports as per HPI, Reports weight change - Hematologic/Lymphatic Denies easy bleeding, Denies easy bruising - Allergic/Immunologic Reports as per HPI Past Medical History Past Medical History: Hypertension Additional Past Medical History / Comment(s): hx frequent UTI's, seasonal jayson rgies, palpitations, hemorrhoids History of Any Multi-Drug Resistant Organisms: None Reported Past Surgical History: No Surgical Hx Reported Past Anesthesia/Blood Transfusion Reactions: No Reported Reaction Past Psychological History: Anxiety Smoking Status: Former smoker Past Alcohol Use History: Rare Additional Past Alcohol Use History / Comment(s): quit smoking 2013, smoked for 5 years Past Drug Use History: None Reported - Past Family History Mother Family Medical History: No Reported History Medications and Allergies Home Medications Medication Instructions Recorded Confirmed Type Cranberry Conc/C/Bacill Coag 1 each PO BID 10/28/14 04/24/24 History [Cranberry Tablet] Multivitamins, Thera [Multivitamin] 1 tab PO DAILY 10/28/14 04/24/24 History Magnesium 250 mg PO DAILY 12/20/23 04/24/24 History buPROPion HCL [buPROPion HCL XL] 1 each PO DAILY 12/20/23 04/24/24 History lisinopriL [Zestril] 10 mg PO DAILY 12/20/23 04/24/24 History Biotin 5 mg PO DAILY 04/24/24 04/24/24 History Allergies Allergy/AdvReac Type Severity Reaction Status Date / Time No Known Allergies Allergy Verified 04/24/24 14:05 Objective - Vital Signs Vital signs: Vital Signs Temp 97.8 F 07/29/24 11:33 Pulse 104 H 07/29/24 11:33 Resp 18 07/29/24 11:33 BP 162/89 07/29/24 11:33 Pulse Ox 96 07/29/24 11:33 FiO2 Intake & Output 07/28/24 07/29/24 07/29/24 18:59 06:59 18:59 Weight 94.801 kg - Constitutional General appearance: Present: cooperative - EENT Eyes: Present: EOMI ENT: Present: hearing grossly normal - Neck Neck: Present: normal ROM - Respiratory Respiratory: bilateral: CTA - Cardiovascular Rhythm: regular Heart sounds: normal: S1, S2 - Integumentary Integumentary Comment(s): Erythema lateral aspect of right breast with some extension towards the axilla Decreased erythema lower medial right breast - Musculoskeletal Musculoskeletal: Present: gait normal - Psychiatric Psychiatric: Present: A&O x's 3, appropriate affect, intact judgment & insight - Additional findings Additional findings: Breast Exam: BRA: 46DD Inspection: Right breast is larger than left breast, bilateral grade 3 ptosis, post operative changes bilateral, erythema right breast decreased medial inferior aspect but increased now at the lumpectomy site with extension towards the axilla Palpation: Right breast Multi positional exam increased fullness upper outer quadrant area approximately, changes, questionable seroma Right axilla: No adenopathy of concern Left breast: Multi positional exam no dominant masses or nodules of concern Left axilla: No adenopathy of concern Assessment and Plan Assessment: Impression: Bilateral ductal carcinoma/status post bilateral lumpectomy and sentinel node b iopsy Cellulitis right breast Right breast T2 N0 M0 ER/VA positive HER2 negative G2 Left breast T1 N0 M0 ER/VA positive HER2 negative G2 Hypertension Plan: Admission for IV antibiotics CBC Consult infectious disease Consult Dr. Lima CC: Dr. Olivia San
== END ==
LOC: WWCWWP 11:24
PROVIDERS: ATTEND Surgery
DX: Z12.31 Encounter for screening mammogram for malignant neoplasm of breast (principal); D05.11 Intraductal carcinoma in situ of right breast; D05.12 Intraductal carcinoma in situ of left breast; I10 Essential (primary) hypertension; N61.0 Mastitis without abscess; Z87.891 Personal history of nicotine dependence

== ENCOUNTER → 2024-08-09 | Outpatient (CLI) | payer MEDICARE ==
--- NOTE | 2024-08-09 11:43 | P.BCPO ---
Progress Note - Text Progress Note Date: 08/09/24 Patient status post debridment of right breast cavity on 07-31-24. Pathology fat necrosis. Lungs: Clear Heart: Regular rate and rhythm Dressing changed Incision is healing well and wound is granulating without difficulty Impression: Patient doing well Plan: Continue present care follow-up in 2 weeks
[2024-08-09 12:01] VITALS: BP 140/73; PULSE 91; RESP 18; TEMP 97.7
== END ==
LOC: WWCWWP 10:59
PROVIDERS: ATTEND Surgery
DX: Z48.817 Encounter for surgical aftercare following surgery on the skin and subcutaneous tissue (principal); Z87.891 Personal history of nicotine dependence

== ENCOUNTER → 2024-08-22 | Outpatient (CLI) | payer MEDICARE ==
[2024-08-22 08:12] VITALS: BP 139/73; PULSE 100; RESP 16; TEMP 98.1
--- NOTE | 2024-08-22 08:47 | P.PN ---
Subjective Progress Note Date: 08/22/24 08-22-24 Principal diagnosis: Post op I&D right breast cellulitis right breast/ on 07-31-24 I&D in the OR right breast [id number]+Her2-G2 stage IB left breast [id number]+Her2-G2 Stage IA History of Present Illness: bilateral breast cancer Requesting physician: Chloé Dalton History of present illness: Philly is a 68-year-old female seen in consultation for Dr. Medel regarding biopsy-proven bilateral breast cancer. She underwent a bilateral mammogram on 2223 which led to diagnostic mammograms on 04-24-2024. This revealed a region of calcification at the 10:00 right breast spanning nearly 5.3 cm. An associated density was identified. On the left there was a persistent 5 mm nodule near the 12 o'clock position for which ultrasound was recommended. She underwent bilateral breast ultrasound in 04-24-2024. In the right breast at the 10 o'clock position there was a 1.2 x 1.7 cm density. Additionally there was a prominent lymph node in the right axilla. It showed uniform cortical thickening up to 2.7 mm in tissue sampling was recommended of both of these lesions. In the left breast at the 12 o'clock position there was a 3 x 4 mm lesion for which tissue biopsy was recommended. The patient underwent ultrasound-guided core biopsy in 04-25-2024. 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 The tumors were ER positive LA positive and HER2 negative. This was a routine mammogram she did not feel anything in her breast. Her last mammogram was many years ago. She was not complaining of any nipple discharge or skin changes. About 15 years ago a breast biopsy benign. She had a very bad experience with a physician many years ago and therefore was reluctant to seek medical care. oncotype: two specimens one 19, and one 10 PET scan no mets, ? disease right axillary node; already had a biopsy of right node and it was (-) The patient on 06-04-24 underwent a bilateral lumpectomy. Her cultures from 07-25-24 did not grow any organisms, but multiple PMNs seen. Few normal skin jack. She stated that approximately on 07-23-24 she developed some erythema of the right breast. She was seen in the office on 07 25 24 and 220 cc of straw-colored fluid were aspirated from the right breast cultures were negative. Additionally an ultrasound was performed the same day and minimal fluid was aspirated at the time of the ultrasound although there did appear to be some loculated fluid 11.3 x 7 cm in size. There were some internal septations present. There was some skin thickening measuring up to 6 mm. CBC was performed on the same date and CBC revealed the 10.4, hemoglobin 12.1. 07-31-24 surgical I&D of lumpectomy site right breast Genetic testing pending Pathology from 06-04-2024 Right breast lumpectomy: Multifocal invasive moderately differentiated ductal carcinoma grade 2 and extensive high-grade DCIS with comedonecrosis and calcifications margins negative Left breast: Benign breast with proliferative fibrocystic changes including radial scar/complex sclerosing lesion, moderate usual type ductal hyperplasia and calcifications, focal atypical ductal hyperplasia not involving the margins no previous biopsy site/biopsy cavity was identified Right sentinel node, lymph node negative for mets Left sentinel node, lymph node negative for mets Tumor size was 6 mm of invasive ductal carcinoma, DCIS was at least 3.3 cm Patient at the time of surgery did not have the clip removed in the specimen on the left side. 07-16-24 mammogram did not show any evidence of residual biopsy clip indicating that it was removed at the time of surgery. She just finished a course of amoxicillin/clav for 20 days 875/125 q 12 hours No fever or chills, she is not complaining of any pain in her breast or any drainage Caffeine: 1 cup/day nicotine: stopped 10 years ago; 1 / PPD chocolate: weekly BCP: about 2 years Family History: father: skin cancer mother: ? Hormonal History: menarche: 11 , age at first : 22, breast fed: Yes menopause: 47 hormones: bioidentical for a short time 1 year or less Surgical history: biopsy of the breast 15 years ago ? side bilateral lumpectomy adn sentinal node biopsy Medical History: HTN Social History: nicotine: as above alcohol: none drugs: none Review of Systems - Constitutional Denies fever, Denies weight loss - EENT Eyes: denies blurred vision Ears: bilateral: decreased hearing, deny: tinnitus Ears, nose, mouth and throat: Denies dysphagia - Breasts bilateral: as per HPI - Cardiovascular Denies chest pain, Denies shortness of breath - Respiratory Denies cough - Gastrointestinal Reports as per HPI - Genitourinary Genitourinary: Denies dysuria, Denies hematuria Menstruation: Reports postmenopausal - Musculoskeletal Reports as per HPI - Integumentary Denies rash, Denies unusual bruising - Neurological Denies headaches, Denies syncope - Psychiatric Reports as per HPI - Endocrine Reports as per HPI, Reports weight change - Hematologic/Lymphatic Denies easy bleeding, Denies easy bruising - Allergic/Immunologic Reports as per HPI Past Medical History Past Medical History: Hypertension Additional Past Medical History / Comment(s): hx frequent UTI's, seasonal allergies, palpitations, hemorrhoids History of Any Multi-Drug Resistant Organisms: None Reported Past Surgical History: No Surgical Hx Reported Past Anesthesia/Blood Transfusion Reactions: No Reported Reaction Past Psychological History: Anxiety Smoking Status: Former smoker Past Alcohol Use History: Rare Additional Past Alcohol Use History / Comment(s): quit smoking 2013, smoked for 5 years Past Drug Use History: None Reported - Past Family History Mother Family Medical History: No Reported History Medications and Allergies Home Medications Medication Instructions Recorded Confirmed Type Cranberry Conc/C/Bacill Coag 1 each PO BID 10/28/14 04/24/24 History [Cranberry Tablet] Multivitamins, Thera [Multivitamin] 1 tab PO DAILY 10/28/14 04/24/24 History Magnesium 250 mg PO DAILY 12/20/23 04/24/24 History buPROPion HCL [buPROPion HCL XL] 1 each PO DAILY 12/20/23 04/24/24 History lisinopriL [Zestril] 10 mg PO DAILY 12/20/23 04/24/24 History Biotin 5 mg PO DAILY 04/24/24 04/24/24 History Allergies Allergy/AdvReac Type Severity Reaction Status Date / Time No Known Allergies Allergy Verified 04/24/24 14:05 Objective - Vital Signs Vital signs: Vital Signs Temp 98.1 F 08/22/24 08:10 Pulse 100 08/22/24 08:10 Resp 16 08/22/24 08:10 BP 139/73 08/22/24 08:10 Pulse Ox 98 08/22/24 08:10 FiO2 Intake & Output 08/21/24 08/22/24 08/22/24 18:59 06:59 18:59 Weight 95.254 kg - Constitutional General appearance: Present: cooperative - EENT Eyes: Present: EOMI ENT: Present: hearing grossly normal - Neck Neck: Present: normal ROM - Respiratory Respiratory: bilateral: CTA - Cardiovascular Rhythm: regular Heart sounds: normal: S1, S2 - Gastrointestinal General gastrointestinal: Present: soft - Integumentary Integumentary: Present: normal turgor - Musculoskeletal Musculoskeletal: Present: gait normal - Psychiatric Psychiatric: Present: A&O x's 3, appropriate affect, intact judgment & insight - Additional findings Additional findings: Breast Exam: Right breast: Area of the incision is clean and dry at this time, the lesion has healed to the skin surface, at this time there is no evidence of infection or seroma the area was probed using a sterile Q-tip and a small amount of fluid was obtained but the area is healing without difficulty incision sutures are going to be removed today Mild erythema medial aspect of the breast Left breast: Incisions clean and dry well-healed no evidence of seroma bilateral axillary incisions clean and dry Assessment and Plan Assessment: Impression: Patient status post bilateral lumpectomy and sentinel node biopsy The lesion in the left breast did not show the clip and the lumpectomy specimen however post surgical repeat mammogram revealed that the clip was gone Right breast invasive ductal carcinoma 6 mm 3.3 cm DCIS margins negative Bilateral sentinel nodes negative Post operatively the patient developed an infection in the right breast and underwent incision and drainage in the operating room on 07-31-2024, she has had a 20-day course of antibiotics and is doing well at this time. Plan: Follow-up radiation oncology Follow-up medical oncology Follow-up here in 1 week to follow mild erythema medial aspect of right breast Will consider ultrasound of the right breast if the erythema does not resolve CC; Dr. Dalton
== END ==
LOC: WWCWWP 07:59
PROVIDERS: ATTEND Surgery
DX: Z12.31 Encounter for screening mammogram for malignant neoplasm of breast (principal); N64.89 Other specified disorders of breast; Z87.891 Personal history of nicotine dependence; Z90.13 Acquired absence of bilateral breasts and nipples

== ENCOUNTER → 2024-08-28 | Outpatient (CLI) | payer MEDICARE ==
[2024-08-28 09:40] VITALS: BP 130/83; PULSE 85; RESP 16; TEMP 97.9
--- NOTE | 2024-08-28 09:46 | P.PN ---
Subjective Progress Note Date: 08/28/24 Principal diagnosis: Post op I&D right breast cellulitis right breast/ on 07-31-24 I&D in the OR right breast [id number]+Her2-G2 stage IB left breast [id number]+Her2-G2 Stage IA At this time the patient is doing well. She is no longer able to have packing placed in the right I&D site as it is completely healed. She is not complaining of any fever or chills. Examination: Lungs: Clear Heart: Regular rate and rhythm Incision right breast is healed at this time with no evidence of seroma Incision left breast is well-healed as well as bilateral axillary incisions there does appear to be a small seroma at the left site which is not bothering the patient Impression: Patient doing well at this time Plan: Appointment medical oncology Appointment radiation oncology Follow-up here in 4 months Follow-up sooner any questions or concerns Objective - Vital Signs Vital signs: Vital Signs Temp 97.9 F 08/28/24 09:37 Pulse 85 08/28/24 09:37 Resp 16 08/28/24 09:37 BP 130/83 08/28/24 09:37 Pulse Ox 97 08/28/24 09:37 FiO2 Intake & Output 08/27/24 08/28/24 08/28/24 18:59 06:59 18:59 Weight 99.79 kg
== END ==
LOC: WWCWWP 08:39
PROVIDERS: ATTEND Surgery
DX: N61.0 Mastitis without abscess (principal); Z87.891 Personal history of nicotine dependence; Z98.890 Other specified postprocedural states